=== PATIENT | male | born 1990 | race Two or more races ===

== ENCOUNTER 2019-03-06 19:17 | Emergency (ER) | payer MEDICAID, OTHER ==
[~2019-03-06] VITALS: Ht 172.7 cm; Wt 158.8 kg
[2019-03-06 19:35] VITALS: BP 150/97
--- NOTE | 2019-03-06 19:35 | NUR ---
ED Nurse Note: Patient states to day he was walking accross a playground at school and tripped over tree roots. Has pain to the right arm and to the cheek as he states he fell into a gate. He also states he has pain in the L knee
[2019-03-06] MEDS ORDERED: Tylenol #3 tab (300mg/30mg) ORAL ONE (20:00)
--- NOTE | 2019-03-06 20:12 | NUR ---
ED Nurse Note: Patient seen by xray
--- NOTE | 2019-03-06 20:57 | Emergency Room Report ---
History of Present Illness General Chief Complaint: Upper Extremity Injury Present Illness HPI 28-year-old male presents to the emergency department complaining of 7 out of 10 severity diffuse pain and tenderness to the right arm status post mechanical trip and fall while at work today. Patient reports he primarily broke his fall using his forearm. Patient reports some tenderness in the soft tissues posteriorly of the elbow but denies localized elbow bony tenderness. He reports and swelling and numbness to the dorsum of the right forearm. He denies neck or back pain. He reports hitting his face along a fence. Denies facial pain /tenderness, reports abrasion. Denies numbness tingling or loss of sensation or gross motor movements of the extremities, incontinence of bowel or bladder. Denies CP, Palpitations, LOC, AMS, dizziness, Changes in Vision, weakness or a sudden severe headache. Allergies: Coded Allergies: No Known Allergies (Unverified , 03/06/19) Patient History Past Medical History: see triage record Past Surgical History: none Pertinent Family History: none Immunizations: UTD Reviewed Nursing Documentation: PMH: Agreed; PSxH: Agreed Review of Systems All Other Systems: negative except mentioned in HPI Physical Exam Vital Signs Date Time Temp Pulse Resp B/P (MAP) Pulse Ox O2 Delivery O2 Flow Rate FiO2 03/06/19 19:34 98.6 86 18 150/97 (114) 98 Room Air Sp02 EP Interpretation: reviewed, normal General Appearance: no apparent distress, alert, GCS 15, non-toxic Head: normocephalic, atraumatic Eyes: bilateral eye normal inspection, bilateral eye PERRL ENT: hearing grossly normal, normal voice Neck: full range of motion Respiratory: chest non-tender, lungs clear, normal breath sounds, speaking full sentences Cardiovascular #1: regular rate, rhythm, normal capillary refill Musculoskeletal: back normal, gait/station normal, normal range of motion, tender - Right forearm and right wrist, mild ST swelling, no localized elbow ttp , FROM, NVI. No snuff box ttp. Neurologic: alert, oriented x3, responsive, motor strength/tone normal, sensory intact, speech normal, grossly normal Psychiatric: judgement/insight normal Skin: abrasion - the right cheek and nose, superficial not bleeding. Lymphatic: no adenopathy Medical Decision Making PA Attestation Dr. Cleary is my supervising Physician whom patient management has been discussed with. Diagnostic Impression: Primary Impression: Right wrist sprain Qualified Codes: S63.501A - Unspecified sprain of right wrist, initial encounter Additional Impressions: Contusion of soft tissue Arm pain, right ER Course 28-year-old male presents to the emergency department complaining of 7 out of 10 severity diffuse pain and tenderness to the right arm status post mechanical trip and fall while at work today. Patient reports he primarily broke his fall using his forearm. Patient reports some tenderness in the soft tissues posteriorly of the elbow but denies localized elbow bony tenderness. He reports and swelling and numbness to the dorsum of the right forearm. He denies neck or back pain. He reports hitting his face along a fence. Denies facial pain /tenderness, reports abrasion. Denies numbness tingling or loss of sensation or gross motor movements of the extremities, incontinence of bowel or bladder. Denies CP, Palpitations, LOC, AMS, dizziness, Changes in Vision, weakness or a sudden severe headache. Ddx considered but are not limited to Fracture, dislocation, contusion, Sprain/ Strain/Spasm, Head injury Vital signs: are WNL, pt. is afebrile H&PE are most consistent with musculoskeletal injury will perform imaging to r/ o fractures/dislocations. ORDERS: - X-ray Right forearm 2 views - negative for fx, Dislocation, or significant soft tissue injury, per preliminary read in ED, and signed by TINO Victor , my supervising physician has reviewed, and agrees with my interpretation. ED INTERVENTIONS: -Tylenol 3 PO -Right wrist splint applied by mechanical system technician. Pt. remains neurovascularly intact. -Right arm Sling applied by mechanical system technician. Pt. remains neurovascularly intact. -I do not identify an emergent condition at this time. With current presentation , pt. is stable for close outpatient follow up and conservative treatment. D/ w pt. to return promptly to ED with worsening or new symptoms.- Pt. verbalizes' understanding and agreement with proposed treatment plan. DISCHARGE: At this time pt. is stable for d/c to home. Will provide printed patient care instructions, and any necessary prescriptions. Care plan and follow up instructions have been discussed with the patient prior to discharge. Other X-Ray Diagnostic Results Other X-Ray Diagnostic Results : X-Ray ordered: Right Forearm # of Views/Limited Vs Complete: 2 View Indication: Pain EP Interpretation: Yes TINO Xray: Interpretation reviewed, by supervising MD, and agrees with findings. Interpretation: no dislocation, no soft tissue swelling, no fractures Impression: No acute disease Electronically Signed by: Alisa Victor PA-C Last Vital Signs Date Time Temp Pulse Resp B/P (MAP) Pulse Ox O2 Delivery O2 Flow Rate FiO2 03/06/19 19:35 98.6 18 150/97 98 Room Air 03/06/19 19:34 86 Disposition: HOME, SELF-CARE Condition: Stable Scripts Ibuprofen* (MOTRIN*) 600 Mg Tablet 600 MG ORAL THREE TIMES A DAY, #30 TAB 0 Refills Prov: Alisa Victor 03/06/19 Departure Forms: Return to Work Return to Work Date: Mar 07, 2019 Work Restrictions: No Heavy Lifting Other Restrictions: wear splint/ no use right arm. May return Sooner if Symptoms have resolved Return to Full Activity: Mar 13, 2019 Patient Instructions: Contusion, [id number], Wrist Sprain Additional Instructions: Take medications as directed. Follow up with a Primary Care Provider in 3-5 days, even if your symptoms have resolved. --Please review list of primary care clinics, if you do not already have a primary care provider Return sooner to ED if new symptoms occur, or current symptoms become worse. - Please note that this Emergency Department Report was dictated using [employer] garden technology software, occasionally this can lead to erroneous entry secondary to interpretation by the dictation equipment. Alisa Victor Mar 06, 2019 20:57
[2019-03-06] MEDS ORDERED: IBUPROFEN600 MG ORAL (20:58)
[2019-03-06 21:06] VITALS: BP 150/97
--- NOTE | 2019-03-06 21:06 | NUR ---
ER DISCHARGE NOTE: Patient is cleared to be discharged per ERMD, pt is aox4, on room air, with stable vital signs. pt was given dc and prescription instructions, pt was able to verbalize understanding, pt id band removed. pt is able to ambulate with steady gait. pt took all belongings. Patient discharged with splint insitu and sling insitu to the left arm. Splint and sling applied by EMT.
--- NOTE | 2019-03-07 11:58 | Diagnostic Imaging Report ---
Indications: Right forearm pain, status post fall Technique: Two views of the right forearm Comparison: None Findings: No acute fractures. No dislocations. No radiopaque foreign body Impression: Negative
== END 2019-03-06 21:06 | disposition home or self-care (01) ==
LOC: EMR 19:56
DX: S63.501A Unspecified sprain of right wrist, initial encounter (principal); S40.021A Contusion of right upper arm, initial encounter; W01.0XXA Fall on same level from slipping, tripping and stumbling without subsequent striking against object, initial encounter; Y92.89 Other specified places as the place of occurrence of the external cause; Y99.0 Civilian activity done for income or pay
CPT/HCPCS: 29125; 99283

== ENCOUNTER 2019-04-07 13:20 | Emergency (ER) | payer SELFPAY ==
[~2019-04-07] VITALS: Ht 175.3 cm; Wt 158.8 kg
[~2019-04-07 13:20] MED LIST: IBUPROFEN600 MG ORAL
[2019-04-07 13:31] VITALS: BP 137/83
--- NOTE | 2019-04-07 14:46 | Diagnostic Imaging Report ---
Indication: Head trauma headache Technique: Contiguous 5 mm thick transaxial imaging of the head obtained in a Siemens Sensation [address] scanner. Soft tissue and bone windows generated. Automatic Exposure Control was utilized. Total Dose length Product (DLP): 1376.[address] Dose Index Volume (CTDIvol): 62.7 mGy Comparison: 07/09/2010 Findings: The size and configuration of the cortical sulci, basal cisterns, and ventricles are within normal limits for age. There is no mass effect, midline shift, or edema identified. There is no evidence of acute hemorrhage or abnormal intra-axial or extra-axial fluid collections. The bones and soft tissues are unremarkable. Impression: No mass effect, edema or acute bleed. [facility] has communicated the preliminary results to the Emergency Department. Their findings are largely concordant with this report. The CT scanner at [facility] is accredited by the [employer] and the scans are performed using dose optimization techniques as appropriate to a performed exam including Automatic Exposure control.
--- NOTE | 2019-04-07 15:04 | Diagnostic Imaging Report ---
Indication: Right shoulder pain COMPARISON: None Findings: 3 views of the right shoulder were obtained. No acute fractures, malalignment, erosions or periostitis are identified. Soft tissues are unremarkable. Impression: Negative for acute injury
--- NOTE | 2019-04-07 15:09 | Diagnostic Imaging Report ---
Indication: Left wrist pain Findings: 3 views of the left wrist were obtained. No acute fractures, malalignment, erosions or periostitis are identified. Soft tissues are unremarkable. Impression: No acute findings.
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
[2019-04-07] MEDS ORDERED: Methocarbamol 750mg tab ORAL ONE (15:15)
[2019-04-07] MEDS ORDERED: Ketorolac 30mg Inj IM ONE (15:15)
[2019-04-07] MEDS ORDERED: IBUPROFEN800 M1 PO (15:15)
[2019-04-07] MEDS ORDERED: LIDODERM700 M1 TOPIC (15:15)
[2019-04-07] MEDS ORDERED: ROBAXIN-500MG ORAL (15:15)
[2019-04-07 15:23] VITALS: BP 135/87
== END 2019-04-07 15:23 | disposition home or self-care (01) ==
LOC: EMR 13:43
DX: S00.93XA Contusion of unspecified part of head, initial encounter (principal); S60.212A Contusion of left wrist, initial encounter; S40.011A Contusion of right shoulder, initial encounter; M54.2 Cervicalgia; V49.9XXA Car occupant (driver) (passenger) injured in unspecified traffic accident, initial encounter; Y92.9 Unspecified place or not applicable
CPT/HCPCS: 70450; 73030; 73110; 96372; 99284; J1885

== ENCOUNTER 2020-04-07 09:08 | Inpatient (IN) | payer SELFPAY ==
[~2020-04-07] VITALS: Ht 172.7 cm; Wt 169.6 kg
--- NOTE | 2020-04-07 07:20 | NUR ---
NURSE NOTES: Report received from Rere THOMAS. Patient alert oriented x4. Non rebreather mask on at 10 LPM. Call light in reach. Bed at lowest position locked with side rails up.
[~2020-04-07 09:08] MED LIST changes: +IBUPROFEN800 M1 PO; +LIDODERM700 M1 TOPIC; +ROBAXIN-500MG ORAL
[2020-04-07 09:15] VITALS: BP 144/91
[2020-04-07] MEDS ORDERED: dexAMETHasone 10mg/ml Inj IV ONE (09:15)
[2020-04-07] MEDS ORDERED: cefTRIAXone 2 GM in NS 110 ML IV ONE (09:15)
--- NOTE | 2020-04-07 09:17 | NUR ---
ED Nurse Note: Pt came by isabel JEAN BAPTISTE 26, Pt had labored breathing with a mask on. Pt placed in bed NRB re-applied SPO2 at 95% with NRB. Pt co of pain Addendum: 04/07/20 at 0920 by TDANCEY while breathing, diarrhea and reported positive COVID test 2 weeks ago from a test done with the [facility].
[2020-04-07 09:28] LABS: HEMATOCRIT 38.7 % (42.0-52.0); HEMOGLOBIN 13.8 G/DL (14.2-18.0); MEAN CORPUSCULAR VOLUME 85 FL (80-99); PLATELET COUNT 283 K/UL (150-450); RED BLOOD COUNT 4.53 M/UL (4.70-6.10); RED CELL DISTRIBUTION WIDTH 12.5 % (11.6-14.8); WHITE BLOOD COUNT 11.3 K/UL (4.8-10.8)
[2020-04-07 09:38] LABS: INR 1.2 (0.9-1.1)
[2020-04-07 09:52] LABS: ALBUMIN 2.5 G/DL (3.4-5.0); ALBUMIN/GLOBULIN RATIO 0.6 (1.0-2.7); BILIRUBIN,TOTAL 1.6 MG/DL (0.2-1.0); CALCIUM 7.3 MG/DL (8.5-10.1); CKMB 17.3 NG/ML (0.0-3.6); CREATININE 1.4 MG/DL (0.55-1.30)
--- NOTE | 2020-04-07 09:59 | NUR ---
ED Nurse Note: xray completed.
[2020-04-07 10:01] LABS: POTASSIUM 2.3 MMOL/L (3.5-5.1)
[2020-04-07 10:02] LABS: BILIRUBIN,DIRECT 0.8 MG/DL (0.0-0.3)
[2020-04-07] MEDS ORDERED: Azithromycin 250mg tab ORAL ONE (10:45)
[2020-04-07 11:00] LABS: APPEARANCE,URINE CLEAR; BILIRUBIN, URINE NEGATIVE (NEGATIVE); GLUCOSE, URINE (UA) NEGATIVE (NEGATIVE); KETONES,URINE 1+ (NEGATIVE); LEUKOCYTE ESTERASE ,URINE NEGATIVE (NEGATIVE); NITRITE,URINE NEGATIVE (NEGATIVE); PH,URINE 6.5 (4.5-8.0); PROTEIN,URINE 3+ (NEGATIVE); UROBILINOGEN,URINE NORMAL MG/DL (0.0-1.0)
--- NOTE | 2020-04-07 11:06 | Emergency Room Report ---
History of Present Illness General Chief Complaint: Dyspnea/Respdistress Source: Patient (Alberta Garner Amol) Present Illness HPI 29-year-old male with history of Covid presents with hypoxia by ambulance. Mother is sick at home with Covid. Patient endorses shortness of breath, dry cough, myalgias and fatigue x 1 week. He was tested at [facility] and confirmed to be COVID positive as well. He denies BEASLEY, neck pain, rash, photophobia, CP, back pain, melena, hematochezia, hematuria, focal weakness. The patient's symptoms were gradual onset, severity was moderate, duration since 7 days. Quality: short of breath Past medical history: Denies Past surgical history: Denies Smoking: Denies Alcohol use: Denies Drug use: ++marijuana Review of systems: CONST: ++ fevers ++ chills, No night sweats PULMONARY: ++ cough, ++ shortness of breath CARDIAC: No chest pain, No palpitations GI: No vomiting, ++ diarrhea , No melena_or_BRBPR : No dysuria, No hematuria, No discharge NEURO: No new_focal_weakness_or_numbness, No confusion, No vision changes 14 point Review of Systems is otherwise negative except per HPI Physical Exam: GENERAL: Awake_alert_ nontoxic, no acute distress Spo2 84% on RA -abnormal . Obese EYES: Extraocular muscles are intact. Conjunctivae clear. Lids without swelling ENT: External nose and ear normal_in_appearance. Oropharynx clear. Head_atraumatic, Moist_oral_mucosa NECK: No JVD. No meningismus. No thyromegaly. Supple. Trachea midline RESP: Normal respiratory effort. Symmetric rise. No stridor. Tonja r_to_auscultation_No_rales_No_wheezes CARDIAC: Labored respiratory effort. Tachypnic. Clipped speech. and regular rhytm. No_significant pedal edema. ABDOMEN: Soft. Nondistended. Nontender_No_rebound_or_guarding. MSK: Normal muscle tone, without rigidity. Extremities without asymmetric deformity or swelling. SKIN: Warm and dry. No visible cyanosis or pallor NEUROLOGIC: Alert, oriented x3. Motor_and_sensation_grossly_intact. No truncal ataxia. Gait_normal Psych: Normal mood and affect, normal judgment and insight - COORDINATION OF CARE Case was discussed with: Patient , Patient's Physician Any labs and imaging that were ordered were interpreted as part of the medical decision making: Medical Decision Making/Plan: DDx: includes COVID-19 / coronavirus infection, URI, bronchitis, viral syndrome, postnasal drip, versus less likely pneumonia, among others. Patient with COVID pneumonia presents with hypoxia and respiratory distress. Patient was placed on NRB face mask at 10L with correction of hypoxia. CXR is consistent with multifocal pneumonia consistent with COVID. Labs show AZUCENA, dehydration, and critical hypokalemia/magnesemia. EKG is non ischemic. He received Rocephin, azithro, decadron per hospital policy. Electrolytes were repleted. Pt was offered NS 30 CC/kg bolus hydration but declined 2/2 COVID status. He will received gentle IVF I spoke with Dr. Shipley, and reviewed the patients presentation, workup, results, and treatment. They will admit the patient for further care and evaluation, and assume care of the patient at this time. (Alberta Garner D.O.) Allergies: Coded Allergies: No Known Allergies (Unverified , 03/06/19) COVID-19 Screening Contact w/high risk pt: Yes Experienced COVID-19 symptoms?: Yes COVID-19 Testing performed RIVET SPINNER: Yes COVID-19 Screening: Positive COVID-19 COVID-19 Testing Source: nasal (Alberta Garner D.O.) Nursing Documentation-[facility] Past Medical History: No Stated History (Alberta Garner D.O.) Physical Exam Vital Signs Date Time Temp Pulse Resp B/P (MAP) Pulse Ox O2 Delivery O2 Flow Rate FiO2 04/07/20 09:13 98.2 115 22 144/91 (108) 84 Room Air 04/07/20 09:15 10.0 Sp02 EP Interpretation: reviewed, abnormal (Alberta Garner D.O.) Procedures Critical Care Time Critical Care Time Critical Care Statement Organ systems at risk include: cardiac / circulatory/PULM Critical care performed for 45 minutes. Time is exclusive of separately billable procedures. Time includes: direct patient care, continuous monitoring and multiple patient reassessment, coordination of patient care, review of patient's medical records, medical consultation, family consultation regarding treatment decisions and documentation of patient care. (Alberta Garner D.O.) Medical Decision Making Diagnostic Impression: Primary Impression: COVID-19 Additional Impressions: Hypoxemic respiratory failure, chronic AZUCENA (acute kidney injury) Dehydration Obesity Hypokalemia Diarrhea ER Course Notified by radiologist that patient has subcutaneous air in the neck. Contacting Dr. Shipley. (Geronimo Marin MD) EKG Diagnostic Results Troponin ordered: Yes When was troponin ordered?: Apr 07, 2020 Rate: normal ASA given to the pt in ED: No - NO ACS PA Scribe Text 12-lead EKG (interpreted by me) Time: 924 Indication: Rhythm analysis Tracing visualized and Interpreted by me. Rhythm: Echocardiogram Rate: 108 bpm QTc: 493 Morphology: No_significant_ST_elevations_or_depressions, No STEMI Impression: Sinus tachycardia. Normal axis. Normal intervals. (Alberta Garner D.O.) Chest X-Ray Diagnostic Results Chest X-Ray Diagnostic Results : PA Scribe Text Chest X-Ray: Views: 1 view(s) Indication: SOB Findings: DIFFUSE INFILTRATE, NO PTX Impression: COVID 19 The X-ray(s) were independently viewed and interpreted contemporaneously Electronically signed by Alberta alejandro DO (Alberta Garner D.O.) Reevaluation Time: 13:00 Last Vital Signs Date Time Temp Pulse Resp B/P (MAP) Pulse Ox O2 Delivery O2 Flow Rate FiO2 04/07/20 09:15 99.2 25 144/91 97 Non-Rebreather 10.0 04/07/20 09:15 115 Status: improved (Alberta Garner D.O.) Disposition: ADMITTED INPATIENT Admit Decision Time: 11:00 (Alberta Garner D.O.) Condition: Stable Scripts No Active Prescriptions or Reported Meds Referrals: NOT CHOSEN IPA/,REFERRING (PCP) Alberta Garner D.O. Apr 07, 2020 11:06 Geronimo Marin MD Apr 07, 2020 14:34
[2020-04-07 11:09] LABS: COLOR,URINE YELLOW
--- NOTE | 2020-04-07 11:12 | NUR ---
RADIOLOGY DEPT., CHEST X-RAY DONE.-P.DYE
--- NOTE | 2020-04-07 11:23 | NUR ---
ED Nurse Note: Report given to Rere Farrell RN of telemetry unit.
--- NOTE | 2020-04-07 11:45 | NUR ---
TRANSFER TO FLOOR: Patient transferred to Tele as ordered, per ER MD. Report given to Ellyn Jernigan. Belongings given to pt.
[2020-04-07] MEDS ORDERED: Albuterol 90mcg Inhaler 8gm INH PRN (12:00)
--- NOTE | 2020-04-07 12:00 | NUR ---
NURSE NOTES: Recieved Pt report from WILLIAM Sahu from ER. Pt brought up via gurney and ambulated to bathroom then back to bed. Pt on 4 LPM NRB saturating 97%. Pt belongings remain with Pt. Pt IV on RFA running magnesium, asymptomatic and intact. Dressing reinforced at this time. pt has no s/s or complaints of distress at this time. pt bed low and locked, call liht in reach and bed alarm on. pt verbalized undertstanding to call for help. Vitals WNL
--- NOTE | 2020-04-07 12:06 | History and Physical ---
History of Present Illness General Date patient seen: Apr 07, 2020 Time patient seen: 11:00 Reason for Hospitalization: Dyspnea/Respdistress Present Illness HPI 29 years old male with no significant past medical history presented to emergency department by paramedics due to respiratory distress. According to patient, his mother got diagnosed with COVID 19 first and currently hospitalized in [facility]. Patient started to have symptoms 2 days ago , which were getting progressively worse. He was tested positive outside of the hospital. Patient had difficulty breathing and called paramedics. Upon evaluation patient was tachycardic with heart rate 115, no fevers, blood pressure 144/91. Patient was hypoxic and required nonrebreather mask. Laboratory work-up revealed mild leukocytosis WBC 11.3 , hemoglobin 13.8 , hematocrit 30.7 , neutrophils 84 . ABG on 100% nonrebreather mask stable. Sodium 121, potassium 2.3. BUN 15, creatinine 1.4. Glucose 111. Lactic acid 2.2. Calcium 7.3 , phosphorus 2.0 , magnesium 1.3 . Total bili 1.6 , direct bilirubin 0.8 . AST 172, ALT 70. Total CK 9910 , CK-MB 17.3, troponin negative, proBNP 22. Albumin 2.5 Urinalysis revealed +2 protein ,+1 ketones ,no evidence of UTI. Influenza screen test was negative. Chest x-ray results pending Rapid COVID-19 was positive In emergency department patient received empiric antibiotic , steroids and admitted to telemetry floor for further management . Patient started on K and Mg replacement . PMH: denies Past surgery: denies Social history: + smoking marijuana, ETOH socially, otherwise no illciiti drug use, no ETOH abuse. 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 Family history: Mother + with COVID, currently hospitalized Allergy: NKDA Medications: none Allergies: Coded Allergies: No Known Allergies (Unverified , 03/06/19) COVID-19 Screening Contact w/high risk pt: Yes Experienced COVID-19 symptoms?: Yes Coronavirus symptoms experienc: Shortness of Breath Medication History No Active Prescriptions or Reported Meds Patient History Healthcare decision maker Resuscitation status Full code Advanced Directive on File Review of Systems Constitutional: Reports: weakness Eye: Reports: no symptoms ENT: Reports: no symptoms Respiratory: Reports: see HPI Cardiovascular: Reports: no symptoms Gastrointestinal: Reports: no symptoms Genitourinary: Reports: no symptoms Musculoskeletal: Reports: no symptoms Skin: Reports: no symptoms Psychiatric: Reports: no symptoms Neurological: Reports: no symptoms Endocrine: Reports: no symptoms Hematologic/Lymphatic: Reports: no symptoms Physical Exam General Appearance: other - young obese male in mild resp distress on 100% NRM Lines, tubes and drains: peripheral HEENT: normocephalic, atraumatic, anicteric, PERRL Neck: non-tender, supple Respiratory/Chest: respiratory distress - mild , accessory muscle use, other - decreased BS bilaterally Cardiovascular/Chest: normal rate, regular rhythm Abdomen: normal bowel sounds, non tender, soft Extremities: normal range of motion, non-tender, no calf tenderness, normal capillary refill Skin Exam: warm/dry Neurologic: 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 normal, no motor/sensory deficits, alert, oriented x 3, responsive Musculoskeletal: normal muscle bulk Last 24 Hour Vital Signs Date Time Temp Pulse Resp B/P (MAP) Pulse Ox O2 Delivery O2 Flow Rate FiO2 04/07/20 09:15 99.2 25 144/91 97 Non-Rebreather 10.0 04/07/20 09:15 115 25 Room Air 04/07/20 09:13 98.2 115 22 144/91 (108) 84 Room Air Laboratory Tests Test 04/07/20 09:05 04/07/20 09:33 04/07/20 10:30 White Blood Count 11.3 K/UL (4.8-10.8) H Red Blood Count 4.53 M/UL (4.70-6.10) L Hemoglobin 13.8 G/DL (14.2-18.0) L Hematocrit 38.7 % (42.0-52.0) L Mean Corpuscular Volume 85 FL (80-99) Mean Corpuscular Hemoglobin 30.5 PG (27.0-31.0) Mean Corpuscular Hemoglobin Concent 35.7 G/DL (32.0-36.0) Red Cell Distribution Width 12.5 % (11.6-14.8) Platelet Count 283 K/UL (150-450) Mean Platelet Volume 8.4 FL (6.5-10.1) Neutrophils (%) (Auto) % (45.0-75.0) Lymphocytes (%) (Auto) % (20.0-45.0) Monocytes (%) (Auto) % (1.0-10.0) Eosinophils (%) (Auto) % (0.0-3.0) Basophils (%) (Auto) % (0.0-2.0) Differential Total Cells Counted 100 Neutrophils % (Manual) 84 % (45-75) H Lymphocytes % (Manual) 9 % (20-45) L Monocytes % (Manual) 4 % (1-10) Eosinophils % (Manual) 0 % (0-3) Basophils % (Manual) 0 % (0-2) Band Neutrophils 3 % (0-8) Platelet Estimate Adequate Platelet Morphology Normal Red Blood Cell Morphology Normal Prothrombin Time 12.7 SEC (9.30-11.50) H Prothromb Time International Ratio 1.2 (0.9-1.1) H Activated Partial Thromboplast Time 34 SEC (23-33) H Sodium Level 121 MMOL/L (136-145) L Potassium Level 2.3 MMOL/L (3.5-5.1) *L Chloride Level 87 MMOL/L (98-107) L Carbon Dioxide Level 22 MMOL/L (21-32) Anion Gap 12 mmol/L (5-15) Blood Urea Nitrogen 15 mg/dL (7-18) Creatinine 1.4 MG/DL (0.55-1.30) H Estimat Glomerular Filtration Rate 59.9 mL/min (>60) Glucose Level 111 MG/DL (74-106) H Lactic Acid Level 2.20 mmol/L (0.4-2.0) H Calcium Level 7.3 MG/DL (8.5-10.1) L Phosphorus Level 2.0 MG/DL (2.5-4.9) L Magnesium Level 1.3 MG/DL (1.8-2.4) L Total Bilirubin 1.6 MG/DL (0.2-1.0) H Direct Bilirubin 0.8 MG/DL (0.0-0.3) H Aspartate Amino Transf (AST/SGOT) 172 U/L (15-37) H Alanine Aminotransferase (ALT/SGPT) 70 U/L (12-78) Alkaline Phosphatase 54 U/L (46-116) Total Creatine Kinase 9910 U/L (26-308) H Creatine Kinase MB 17.3 NG/ML (0.0-3.6) H Creatine Kinase MB Relative Index 0.1 Troponin I 0.002 ng/mL (0.000-0.056) Pro-B-Type Natriuretic Peptide 22 pg/mL (0-125) Total Protein 6.8 G/DL (6.4-8.2) Albumin 2.5 G/DL (3.4-5.0) L Globulin 4.3 g/dL Albumin/Globulin Ratio 0.6 (1.0-2.7) L Lipase 82 U/L (73-393) Arterial Blood pH 7.535 (7.350-7.450) Arterial Blood Partial Pressure CO2 20.2 mmHg (35.0-45.0) *L Arterial Blood Partial Pressure O2 101.6 mmHg (75.0-100.0) H Arterial Blood HCO3 16.7 mmol/L (22.0-26.0) *L Arterial Blood Oxygen Saturation 97.4 % (95-100) Arterial Blood Base Excess -3.7 (-2-2) L Jonny Test Positive Urine Color Yellow Urine Appearance Clear Urine pH 6.5 (4.5-8.0) Urine Specific [address] 1.005 (1.005-1.035) Urine Protein 3+ (NEGATIVE) H Urine Glucose (UA) Negative (NEGATIVE) Urine Ketones 1+ (NEGATIVE) H Urine Blood 5+ (NEGATIVE) H Urine Nitrite Negative (NEGATIVE) Urine Bilirubin Negative (NEGATIVE) Urine Urobilinogen Normal MG/DL (0.0-1.0) Urine Leukocyte Esterase Negative (NEGATIVE) Urine RBC 0-2 /HPF (0 - 0) H Urine WBC 0-2 /HPF (0 - 0) Urine Squamous Epithelial Cells Occasional /LPF Urine Bacteria Few /HPF (NONE) Microbiology Date/Time Source Procedure Growth Status 04/07/20 09:46 Nasal Nares Right - Final Complete 04/07/20 09:46 Nasal Nares Right - Final Complete Height (Feet): 5 Height (Inches): 9.00 Weight (Pounds): 300 Medications Current Medications Medications (Trade) Dose Ordered Sig/Bernard Route PRN Reason Start Time Stop Time Status Last Admin Dose Admin Magnesium Sulfate 100 ml @ 100 mls/hr Q1H IVPB 04/07/20 10:15 04/07/20 12:14 04/07/20 10:28 Assessment/Plan Assessment/Plan: ASSESSMENT Acute hypoxemic respiratory failure requiring cardioversion nonrebreather mask COVID pneumonia Morbid obesity Electrolyte imbalance: hypo Na, hypo K, hypo Mg Elevated LFT Elevated CK, possible rhabdo AZUCENA PLAN OF CARE tele O2 titrate to keep sat above 92% MDI Albuterol prn closely monitor oxygenation, low threshold for intubation ABG in am steroids, remdesivvir abx as per ID recs fup inflammatory markers a/c with Lovenox vit C and zinc IVF nephro evla monitor renal parameters, LFT, CK supportive care replace lytes case discussed and evaluated by supervising physician Mariela Dover NP Apr 07, 2020 12:06
[2020-04-07 12:34] LABS: FERRITIN > 2000 NG/ML (8-388); LACTATE DEHYDROGENASE 1495 U/L (81-234)
--- NOTE | 2020-04-07 12:45 | Consultation ---
Consult Note Consult Note I am asked to evaluate the patient for abnormal electrolyte and fluid management Full note to follow 29-year-old male with history of Covid presents with hypoxia by ambulance. Mother is sick at home with Covid. Patient endorses shortness of breath, dry cough, myalgias and fatigue x 1 week. He was tested at [facility] and confirmed to be COVID positive as well. He denies BEASLEY, neck pain, rash, photophobia, CP, back pain, melena, hematochezia, hematuria, focal weakness. The patient's symptoms were gradual onset, severity was moderate, duration since 7 days. Quality: short of breath Past medical history: Denies Past surgical history: Denies Smoking: Denies Alcohol use: Denies Drug use: ++marijuana Review of systems: CONST: ++ fevers ++ chills, No night sweats PULMONARY: ++ cough, ++ shortness of breath CARDIAC: No chest pain, No palpitations GI: No vomiting, ++ diarrhea , No melena_or_BRBPR : No dysuria, No hematuria, No discharge NEURO: No new_focal_weakness_or_numbness, No confusion, No vision changes 14 point Review of Systems is otherwise negative except per HPI Physical Exam: GENERAL: Awake_alert_ nontoxic, no acute distress Spo2 84% on RA -abnormal . Obese EYES: Extraocular muscles are intact. Conjunctivae clear. Lids without swelling ENT: External nose and ear normal_in_appearance. Oropharynx clear. Head_atraumatic, Moist_oral_mucosa NECK: No JVD. No meningismus. No thyromegaly. Supple. Trachea midline RESP: Normal respiratory effort. Symmetric rise. No stridor. Clear_to_auscultation_No_rales_No_wheezes CARDIAC: Labored respiratory effort. Tachypnic. Clipped speech. and regular rhytm. No_significant pedal edema. ABDOMEN: Soft. Nondistended. Nontender_No_rebound_or_guarding. MSK: Normal muscle tone, without rigidity. Extremities without asymmetric deformity or swelling. SKIN: Warm and dry. No visible cyanosis or pallor NEUROLOGIC: Alert, oriented x3. Motor_and_sensation_grossly_intact. No truncal ataxia. Gait_normal Psych: Normal mood and affect, normal judgment and insight . Assessment/Plan Acute hypoxemic respiratory failure requiring cardioversion nonrebreather mask COVID pneumonia Morbid obesity Electrolyte imbalance: hypo Na, hypo K, hypo Mg Elevated LFT Elevated CK, possible rhabdo AZUCENA PLAN OF CARE tele O2 titrate to keep sat above 92% MDI Albuterol prn closely monitor oxygenation, low threshold for intubation ABG in am steroids, remdesivvir abx as per ID recs fup inflammatory markers a/c with Lovenox vit C and zinc IVF nephro evla monitor renal parameters, LFT, CK supportive care replace Jamey Sahu MD Apr 07, 2020 12:45
[2020-04-07] MEDS ORDERED: Potassium Phosphate 15mm/250ml 250 ML IVPB ONE (13:30)
[2020-04-07] MEDS: Zinc Sulfate 220mg ORAL SCH (13:49)
[2020-04-07] MEDS: NS w/KCl 20mEq 1000ml 1,000 ML IV SCH ×3 (13:50→23:00)
--- NOTE | 2020-04-07 14:36 | Diagnostic Imaging Report ---
Indication: Cough Technique: One view of the chest Comparison: 07/09/2010 Findings: Extensive bilateral interstitial and airspace infiltrates, diffuse with a peripheral predominance and a peribronchovascular distribution, are noted, new since the prior study. There is gas within the soft tissue planes of the neck, as well as gas within the left supraclavicular fossa soft tissues. There is probably some pneumomediastinum as well. No definite pneumothorax, however. The heart size is normal. The pleural spaces are clear. Impression: Bilateral infiltrates, suspicious for bilateral pneumonia, quite possibly viral Evidence of soft tissue gas within the fascial planes of the neck as well as soft tissue gas within the left supraclavicular fossa. Of pneumothorax. Probably secondary to barotrauma; much less likely due to infection with gas-forming organism. Dr. Marin was notified at the time of interpretation
[2020-04-07] MEDS ORDERED: Omnipaque-300 100ml vial INJ PRN ×2 (14:49)
--- NOTE | 2020-04-07 15:01 | NUR ---
NURSE NOTES: Potassium phosphate and Potassium chloride were not compatible per Per pharmacy and clinical pharmacology so I administered potassium phosphate first and will run potassium chloride at a later time after remdesivir is done running. Marked "undo" on emar.
[2020-04-07 16:00] VITALS: BP 127/80
--- NOTE | 2020-04-07 16:59 | Diagnostic Imaging Report ---
ndication: Shortness of breath, labored breathing Technique: IV administration nonionic contrast. Spiral acquisitions obtained from the lung bases to the lung apices. Multiplanar and 3-D reconstructions were generated. Total dose length product 1473 mGycm. CTDIvol(s) 8, 147, 27 mGy. Dose reduction achieved using automated exposure control Comparison: none Findings: Exam is limited. Patient was scanned with his arms by his side due to inability to cooperate optimally. This results in extensive streak and beam hardening artifact throughout the chest. There is extensive dense consolidation bilaterally. This involves essentially the entire posterior lower lobes bilaterally, and is seen centrally and peripherally in the upper lobes. No pleural effusions are evident. There is pneumomediastinum. Gas is seen surrounding the thyroid, the great vessel origins, alongside the inferior vena cava, along the posterior mediastinum and extending alongside the esophagus to the level of the gastroesophageal junction. Gas also extends cephalad into the neck beyond the imaging volume. No definite tracheal or esophageal defect is demonstrated. There is no pneumothorax. The heart size is normal. No pericardial effusion. No mediastinal or hilar mass or adenopathy. Unremarkable thyroid. The included upper abdominal anatomy is not well demonstrated but appears grossly unremarkable. Impression: Limited exam, as described Bilateral diffuse and extensive infiltrates, as described. Most likely due to pneumonia, appearance nonspecific as regards etiology. Pneumomediastinum. Etiology of this is not demonstrated. No evidence of pneumothorax The CT scanner at [facility] is accredited by the [employer] and the scans are performed using protocols designed to limit radiation exposure to as low as reasonably achievable to attain images of sufficient resolution adequate for diagnostic evaluation.
[2020-04-07] MEDS ORDERED: Loading Dose:Remdesivir 200mg/NS 210ml IV SCH ×2 (17:00)
--- NOTE | 2020-04-07 17:06 | Diagnostic Imaging Report ---
Indication: Shortness of breath, evidence of soft tissue gas on recent plain radiograph Technique: IV administration nonionic contrast. Spiral acquisitions obtained through the neck. Multiplanar reconstructions were generated. Total dose length product 1473 mGycm. CTDIvol(s) 8, 147, 27 mGy. Dose reduction achieved using automated exposure control Comparison: none Findings: Gas is seen within the deep fascial planes of the neck as well as superficially. Gas is seen in the retropharyngeal space extending from the level of the adenoids into the upper mediastinum, within the vascular space surrounding the carotid sheaths, within the right parapharyngeal space, surrounding the thyroid, in the lower neck anterior to the strap muscles and also adjacent and superficial to the left sternocleidomastoid. Some gas is also seen anterior to the upper medial pectoralis major muscle on the left and in the bilateral supraclavicular fossae. No focal fluid collection to suggest abscess demonstrated. No definite tracheal or esophageal wall defect is demonstrated. Gas also extends into the mediastinum and is described in more detail on separate chest CT report There are bilateral maxillary sinus polyps versus mucous retention cysts. There is evidence of dental disease with severe caries and periodontal changes involving the left second maxillary molar. No cervical mass or adenopathy demonstrated. The salivary glands are unremarkable. The visualized lungs demonstrate extensive pulmonary parenchymal disease. This is described on separate chest CT report. Impression: Extensive gas within the fascial planes of the neck, as described. Etiology not demonstrated. No evidence of fluid collection to suggest abscess Other findings as noted, including dental disease, bilateral maxillary sinus polyps versus mucous retention cysts The CT scanner at [facility] is accredited by the [employer] and the scans are performed using protocols designed to limit radiation exposure to as low as reasonably achievable to attain images of sufficient resolution adequate for diagnostic evaluation.
[2020-04-07] MEDS: Docusate 100mg cap ORAL SCH (17:14)
[2020-04-07] MEDS: Enoxaparin 120 mg inj SUBQ SCH (17:16)
[2020-04-07] MEDS: Ascorbic Acid 500mg tab ORAL SCH (17:16)
--- NOTE | 2020-04-07 17:21 | Infectious Diseases Prog Note ---
Assessment/Plan Assessment/Plan Full consult dictated: A) 1) covid-19 infection with pna, ? cap 2) pneumomediastinum on chest CT 3) neck with gas on CT P) 1) zosyn, azithromycin 2) remdesivir and dexamethasone 3) will f/u 4) thank you Subjective Allergies: Coded Allergies: No Known Allergies (Unverified , 03/06/19) Objective Last 24 Hour Vital Signs Date Time Temp Pulse Resp B/P (MAP) Pulse Ox O2 Delivery O2 Flow Rate FiO2 04/07/20 12:21 Non-Rebreather 4.0 04/07/20 12:02 100.1 104 22 121/60 97 Non-Rebreather 15.0 04/07/20 12:00 103 04/07/20 09:15 99.2 25 144/91 97 Non-Rebreather 10.0 04/07/20 09:15 115 25 Room Air 04/07/20 09:13 98.2 115 22 144/91 (108) 84 Room Air Height (Feet): 5 Height (Inches): 8.00 Weight (Pounds): 374 Microbiology Date/Time Source Procedure Growth Status 04/07/20 09:46 Nasal Nares Right - Final Complete 04/07/20 09:46 Nasal Nares Right - Final Complete Laboratory Tests Test 04/07/20 09:00 04/07/20 09:05 04/07/20 09:33 04/07/20 10:30 D-Dimer 2.01 mg/L FEU (0.00-0.49) H Ferritin > 2000 NG/ML (8-388) H Lactate Dehydrogenase 1495 U/L (81-234) H C-Reactive Protein, Quantitative 39.9 mg/dL (0.00-0.90) H White Blood Count 11.3 K/UL (4.8-10.8) H Red Blood Count 4.53 M/UL (4.70-6.10) L Hemoglobin 13.8 G/DL (14.2-18.0) L Hematocrit 38.7 % (42.0-52.0) L Mean Corpuscular Volume 85 FL (80-99) Mean Corpuscular Hemoglobin 30.5 PG (27.0-31.0) Mean Corpuscular Hemoglobin Concent 35.7 G/DL (32.0-36.0) Red Cell Distribution Width 12.5 % (11.6-14.8) Platelet Count 283 K/UL (150-450) Mean Platelet Volume 8.4 FL (6.5-10.1) Neutrophils (%) (Auto) % (45.0-75.0) Lymphocytes (%) (Auto) % (20.0-45.0) Monocytes (%) (Auto) % (1.0-10.0) Eosinophils (%) (Auto) % (0.0-3.0) Basophils (%) (Auto) % (0.0-2.0) Differential Total Cells Counted 100 Neutrophils % (Manual) 84 % (45-75) H Lymphocytes % (Manual) 9 % (20-45) L Monocytes % (Manual) 4 % (1-10) Eosinophils % (Manual) 0 % (0-3) Basophils % (Manual) 0 % (0-2) Band Neutrophils 3 % (0-8) Platelet Estimate Adequate Platelet Morphology Normal Red Blood Cell Morphology Normal Prothrombin Time 12.7 SEC (9.30-11.50) H Prothromb Time International Ratio 1.2 (0.9-1.1) H Activated Partial Thromboplast Time 34 SEC (23-33) H Sodium Level 121 MMOL/L (136-145) L Potassium Level 2.3 MMOL/L (3.5-5.1) *L Chloride Level 87 MMOL/L (98-107) L Carbon Dioxide Level 22 MMOL/L (21-32) Anion Gap 12 mmol/L (5-15) Blood Urea Nitrogen 15 mg/dL (7-18) Creatinine 1.4 MG/DL (0.55-1.30) H Estimat Glomerular Filtration Rate 59.9 mL/min (>60) Glucose Level 111 MG/DL (74-106) H Lactic Acid Level 2.20 mmol/L (0.4-2.0) H Calcium Level 7.3 MG/DL (8.5-10.1) L Phosphorus Level 2.0 MG/DL (2.5-4.9) L Magnesium Level 1.3 MG/DL (1.8-2.4) L Total Bilirubin 1.6 MG/DL (0.2-1.0) H Direct Bilirubin 0.8 MG/DL (0.0-0.3) H Aspartate Amino Transf (AST/SGOT) 172 U/L (15-37) H Alanine Aminotransferase (ALT/SGPT) 70 U/L (12-78) Alkaline Phosphatase 54 U/L (46-116) Total Creatine Kinase 9910 U/L (26-308) H Creatine Kinase MB 17.3 NG/ML (0.0-3.6) H Creatine Kinase MB Relative Index 0.1 Troponin I 0.002 ng/mL (0.000-0.056) Pro-B-Type Natriuretic Peptide 22 pg/mL (0-125) Total Protein 6.8 G/DL (6.4-8.2) Albumin 2.5 G/DL (3.4-5.0) L Globulin 4.3 g/dL Albumin/Globulin Ratio 0.6 (1.0-2.7) L Lipase 82 U/L (73-393) Interleukin 6 (IL-6) Pending Arterial Blood pH 7.535 (7.350-7.450) Arterial Blood Partial Pressure CO2 20.2 mmHg (35.0-45.0) *L Arterial Blood Partial Pressure O2 101.6 mmHg (75.0-100.0) H Arterial Blood HCO3 16.7 mmol/L (22.0-26.0) *L Arterial Blood Oxygen Saturation 97.4 % (95-100) Arterial Blood Base Excess -3.7 (-2-2) L Jonny Test Positive Urine Color Yellow Urine Appearance Clear Urine pH 6.5 (4.5-8.0) Urine Specific [place] 1.005 (1.005-1.035) Urine Protein 3+ (NEGATIVE) H Urine Glucose (UA) Negative (NEGATIVE) Urine Ketones 1+ (NEGATIVE) H Urine Blood 5+ (NEGATIVE) H Urine Nitrite Negative (NEGATIVE) Urine Bilirubin Negative (NEGATIVE) Urine Urobilinogen Normal MG/DL (0.0-1.0) Urine Leukocyte Esterase Negative (NEGATIVE) Urine RBC 0-2 /HPF (0 - 0) H Urine WBC 0-2 /HPF (0 - 0) Urine Squamous Epithelial Cells Occasional /LPF Urine Bacteria Few /HPF (NONE) Current Medications Medications (Trade) Dose Ordered Sig/Bernard Route PRN Reason Start Time Stop Time Status Last Admin Dose Admin Albuterol Sulfate (Proventil MDI) 2 puff Q4H PRN INH Shortness of Breath 04/07/20 12:00 07/06/20 11:59 Ascorbic Acid (Vitamin C) 500 mg TWICE A DAY ORAL 04/07/20 18:00 05/07/20 17:59 Dexamethasone Sodium Phosphate (Decadron 10mg/ ml Inj) 6 mg DAILY IV 04/08/20 09:00 04/17/20 09:01 Docusate Sodium (Colace) 100 mg TWICE A DAY ORAL 04/07/20 18:00 05/07/20 17:59 Enoxaparin Sodium (Lovenox) 120 mg Q24H SUBQ 04/07/20 17:00 07/06/20 16:59 Iohexol (OMNIPAQUE-300 100ml) 100 ml ONCE PRN INJ RADIOLOGY 04/07/20 14:49 04/08/20 23:59 Iohexol (OMNIPAQUE-300 100ml) 100 ml ONCE PRN INJ RADIOLOGY 04/07/20 14:49 04/08/20 23:59 Pantoprazole (Protonix) 40 mg DAILY ORAL 04/08/20 09:00 05/08/20 08:59 Potassium Chloride/Sodium Chloride 1,000 ml @ 100 mls/hr Q10H IV 04/07/20 13:00 05/07/20 12:59 Potassium Phosphate 250 ml @ 41.671 mls/ hr ONCE ONCE IVPB 04/07/20 13:30 04/07/20 19:29 04/07/20 13:49 Remdesivir 100 mg/ Sodium Chloride 250 ml @ 250 mls/hr Q24H IV 04/08/20 17:00 04/11/20 17:59 Remdesivir 200 mg/ Sodium Chloride 250 ml @ 125 mls/hr ONCE IV 04/07/20 17:00 04/07/20 18:59 Zinc Sulfate (Zinc Sulfate) 220 mg DAILY ORAL 04/07/20 12:15 07/06/20 12:14 04/07/20 13:49 Dennis Foy MD Apr 07, 2020 17:21
[2020-04-07 20:00] VITALS: BP 130/80
--- NOTE | 2020-04-07 20:04 | NUR ---
NURSE HAND-OFF REPORT: Important Events on Shift: ADMISSION FROM ER, CXR SHOWED AIRPACE IN NECK, CT W/ W/O CONTRAST DONE Patient Status: FC, STABLE Diet: CARDIAC DIET Pending Orders: Pending Results/Labs: Pending MD notification: Latest Vital Signs: Temperature 97.9 , Pulse 98 , B/P 127 /80 , Respiratory Rate 22 , O2 SAT 97 , Non-Rebreather, O2 Flow Rate 4.0 . Vital Sign Comment: EKG Rhythm: Sinus Rhythm Rhythm change?: Y MD Notified?: N - MD Response: Latest Nunez Fall Score: 20 Fall Risk: Low Risk Safety Measures: Call light Within Reach, Bed Alarm Zone 1, Side Rails Side Rails x2, Bed position Low and Locked. Fall Precautions: Yellow Socks Door Sign Patient Fall Education Report given to WILLIAM JUAN.
--- NOTE | 2020-04-07 21:00 | Consultation ---
DATE OF CONSULTATION: 04/07/2020 INFECTIOUS DISEASE CONSULTATION CONSULTING PHYSICIAN: Dennis Foy MD ATTENDING PHYSICIAN: Eleuterio Shipley MD REFERRING PHYSICIAN: Eleuterio Shipley MD REASON FOR CONSULTATION: COVID-19 infection, pneumonia, possible bacterial pneumonia, leukocytosis, fevers. CHIEF COMPLAINT: Patient's chief complaint coming to the hospital is hypoxia and history of COVID infection. HISTORY OF PRESENT ILLNESS: This is a very pleasant 29-year-old male who comes in to [facility] with hypoxia. Patient says his mother was diagnosed with COVID and patient had an outpatient test that was positive for COVID. COVID testing here at [facility] is pending. Patient has significant hypoxia and bilateral infiltrates on CT scan of the chest. Infectious Disease consultation was requested. Patient was placed on Zosyn, azithromycin, remdesivir, steroids, and dexamethasone. A CT scan of the chest showed bilateral infiltrates, extensive infiltrates and diffuse and also pneumomediastinum. CT scan of the neck showed extensive gas within facial planes of the neck. Case was discussed with Mariela Dover, nurse practitioner, for Dr. Shipley. Patient again was placed on Zosyn, azithromycin, dexamethasone, and remdesivir. Case was discussed with pharmacy also. Patient is in the step-down unit and also has fevers. REVIEW OF SYSTEMS: CONSTITUTIONAL: Main issue is the shortness of breath, hypoxia, fevers, questionable some neck discomfort, some chest discomfort. GASTROINTESTINAL: No nausea or diarrhea. GENITOURINARY: No urinary symptoms. PAST MEDICAL HISTORY: Includes obesity, otherwise negative. ALLERGIES: No known drug allergies. SOCIAL HISTORY: Negative for smoking, alcohol, or drug abuse. FAMILY HISTORY: Noncontributory. MEDICATIONS: Upon reviewing the MAR, he is following medications. Patient was placed on Zosyn, azithromycin, dexamethasone, remdesivir, ascorbic acid, Maxipime, potassium, and zinc sulfate. Outside medications, I do not believe he is on anything outside. PHYSICAL EXAMINATION: VITAL SIGNS: Temperature 100.1, pulse rate 104, respiratory rate 22, saturation 97% on non-rebreather, blood pressure 120/60. He is on 15 liters, now 4 L. GENERAL: Otherwise, he is alert, responsive, oriented. Some shortness of breath noted. HEAD AND NECK: No significant neck pain upon palpation. Maybe some swelling, but nothing significant to my exam. Oral exam, no thrush. Eye exam, no icterus. HEART: Regular. No gallop or murmur. ABDOMEN: Soft. Positive bowel sounds. Nontender. LUNGS: Bilateral rhonchi and rales. SKIN: No rash. MUSCULOSKELETAL: No effusions. PERIPHERAL VASCULAR: No gangrene. No cellulitis noted. NEUROLOGIC: Alert, responsive. GENITOURINARY: No Iniguez. LABORATORY DATA: Laboratory data is as follows: UA had 0 to 2 white cells. Creatinine 1.4. Ferritin greater than 2000. LFTs were elevated. AST is 172. LDH 1495. CRP 39.9. Potassium 2.3, creatinine 1.4. White count 11.3 and hemoglobin 13.8. IMAGING: Chest x-ray shows bilateral infiltrate. CT scan of the chest showed extensive diffuse bilateral infiltrates in the mediastinum and CT scan of the neck showed extensive gas in the neck on the facial planes. ASSESSMENT AND PLAN: 1. Patient has what looks like COVID-19 infection with pneumonia. Based on history, he has had a positive COVID test. His COVID testing here at [facility] is pending. However, CT scan certainly is consistent with COVID infection and pneumonia. Patient also has possible community-acquired pneumonia. Patient has possible what looks like extensive gas in the neck, unclear what significant this is and what the etiology of it is. The patient also has elevated LDH and pneumomediastinum. We will continue antibiotics Zosyn and azithromycin for bacterial infection and pneumonia and also remdesivir and dexamethasone for COVID-19 treatment. Monitor patient for hypoxia. Check followup laboratories, x-ray. Consider ENT evaluation. I believe Surgery is also going to be following. Monitor patient closely. Also check HIV testing. 2. Obesity. 3. Elevated creatinine. 4. . 5. No known allergies. 6. Social history is negative. 7. Family history is noncontributory. 8. Case was discussed with RN. 9. Case was discussed with Mariela Dover, nurse practitioner for Dr. Shipley. Dennis Foy M.D. DR: REHANA JOB#: [id number] CC:
[2020-04-07] MEDS: Piperacillin/Tazobactam 3.375 GM in D5W 110 ML IVPB SCH (21:30)
[2020-04-08] VITALS: BP 139/81
--- NOTE | 2020-04-08 | NUR ---
NURSE HAND-OFF REPORT: Important Events on Shift:[] Patient Status: [Stalbe] Diet: [Cardiac Diet] Pending Orders: [] Pending Results/Labs:[] Pending MD notification:[] Latest Vital Signs: Temperature 98.8 , Pulse 84 , B/P 101 /58 , Respiratory Rate 22 , O2 SAT 95 , Non-Rebreather, O2 Flow Rate 10.0 . Vital Sign Comment: [] EKG Rhythm: Sinus Rhythm Rhythm change?: N MD Notified?: N - MD Response: Latest Nunez Fall Score: 20 Fall Risk: Low Risk Safety Measures: Call light Within Reach, Bed Alarm Zone 2, Side Rails Side Rails x2, Bed position Low and Locked. Fall Precautions: Patient Fall Education Report given to [Julianne THOMAS].
[2020-04-08 04:00] VITALS: BP 127/72
[2020-04-08] MEDS: Piperacillin/Tazobactam 3.375 GM in D5W 110 ML IVPB SCH ×3 (05:34→21:45)
[2020-04-08 06:07] LABS: HEMATOCRIT 37.6 % (42.0-52.0); MEAN CORPUSCULAR VOLUME 87 FL (80-99); PLATELET COUNT 343 K/UL (150-450); RED BLOOD COUNT 4.32 M/UL (4.70-6.10); RED CELL DISTRIBUTION WIDTH 12.8 % (11.6-14.8); WHITE BLOOD COUNT 9.3 K/UL (4.8-10.8)
[2020-04-08 06:25] LABS: ALANINE AMINOTRANSFERASE 70 U/L (12-78); ALBUMIN 2.3 G/DL (3.4-5.0); ALBUMIN/GLOBULIN RATIO 0.5 (1.0-2.7); ALKALINE PHOSPHATASE 51 U/L (46-116); ASPARTATE AMINO TRANSFERASE 107 U/L (15-37); BILIRUBIN,TOTAL 0.7 MG/DL (0.2-1.0); BLOOD UREA NITROGEN 14 mg/dL (7-18); CALCIUM 8.3 MG/DL (8.5-10.1); CARBON DIOXIDE 20 MMOL/L (21-32); CHLORIDE 101 MMOL/L (98-107); CREATININE 1.1 MG/DL (0.55-1.30); SODIUM 134 MMOL/L (136-145)
[2020-04-08 06:36] LABS: POTASSIUM 2.6 MMOL/L (3.5-5.1)
[2020-04-08 07:09] LABS: PHOSPHORUS 2.8 MG/DL (2.5-4.9)
[2020-04-08 07:18] LABS: CHOLESTEROL 104 MG/DL (< 200); CREATINE KINASE 4405 U/L (26-308); FERRITIN > 2000 NG/ML (8-388); HDL CHOLESTEROL 12 MG/DL (40-60); TRIGLYCERIDES 132 MG/DL (30-150)
[2020-04-08 08:00] VITALS: BP 125/72
--- NOTE | 2020-04-08 08:19 | NUR ---
NURSE NOTES: pt in bed AOx4, pt about to have breakfast. pt on property assessment monitor, no signs of cardiac distress. pt on nondebreather and is short of breath when mask is off. Bed is locked and in lowest position call light within reach. pt room has a leak so pt will be moved to another room. will continue to monitor.
--- NOTE | 2020-04-08 08:23 | NUR ---
HAND-OFF: Report given to WILLIAM Hutchinson. Patient remains at baseline. Endorsed plan of care.
[2020-04-08] MEDS: NS w/KCl 20mEq 1000ml 1,000 ML IV SCH ×2 (09:56→19:00)
[2020-04-08] MEDS: Ascorbic Acid 500mg tab ORAL SCH ×2 (10:00→18:12)
[2020-04-08] MEDS: Docusate 100mg cap ORAL SCH ×2 (10:00→18:00)
[2020-04-08] MEDS: Zinc Sulfate 220mg ORAL SCH (10:00)
[2020-04-08] MEDS: dexAMETHasone 10mg/ml Inj IV SCH (10:00)
--- NOTE | 2020-04-08 10:25 | Pulmonology Progress Note ---
Subjective Allergies: Coded Allergies: No Known Allergies (Unverified , 03/06/19) Subjective still on 100% NRM but no resp distress no fevers, creat down to normal K still low 2.6 Objective Last 24 Hour Vital Signs Date Time Temp Pulse Resp B/P (MAP) Pulse Ox O2 Delivery O2 Flow Rate FiO2 04/08/20 04:00 97.9 70 28 127/72 (90) 92 04/08/20 04:00 90 04/08/20 00:00 80 04/08/20 00:00 97.9 93 25 139/81 (100) 92 04/07/20 21:00 Non-Rebreather 10.0 04/07/20 20:00 97.9 84 26 130/80 (97) 92 04/07/20 20:00 83 04/07/20 16:00 98 04/07/20 16:00 97.9 93 22 127/80 (96) 97 04/07/20 12:21 Non-Rebreather 4.0 04/07/20 12:02 100.1 104 22 121/60 97 Non-Rebreather 15.0 04/07/20 12:00 103 Intake and Output 04/07/20 04/08/20 19:00 07:00 Intake Total 1710 ml Balance 1710 ml Intake Oral 500 ml IV Total 1210 ml # Voids 5 # Bowel Movements 5 1 Objective General Appearance: young obese male on 100% NRM, in NAD Lines, tubes and drains: peripheral HEENT: normocephalic, atraumatic, anicteric, PERRL Neck: non-tender, supple Respiratory/Chest: no accessory muscle use, few scattered rhonchi BL Cardiovascular/Chest: normal rate, regular rhythm Abdomen: normal bowel sounds, non tender, soft, obese Extremities: normal range of motion, non-tender, no calf tenderness, normal capillary refill Skin Exam: warm/dry Neurologic: slurry tank tender II-XII grossly normal, no motor/sensory deficits, alert, orien ze x 3, responsive Musculoskeletal: normal muscle bulk Microbiology Date/Time Source Procedure Growth Status 04/07/20 10:30 Urine,Clean Catch Urine Culture - Preliminary NO GROWTH Resulted 04/07/20 09:46 Nasal Nares Right - Final Complete 04/07/20 09:46 Nasal Nares Right - Final Complete Laboratory Tests 04/07/20 10:30: Urine Color Yellow, Urine Appearance Clear, Urine pH 6.5, Urine Specific Perry 1.005, Urine Protein 3+H, Urine Glucose (UA) Negative, Urine Ketones 1+H, Urine Blood 5+H, Urine Nitrite Negative, Urine Bilirubin Negative, Urine Urobilinogen Normal, Urine Leukocyte Esterase Negative, Urine RBC 0-2H, Urine WBC 0-2, Urine Squamous Epithelial Cells Occasional, Urine Bacteria Few 04/08/20 05:55: White Blood Count 9.3, Red Blood Count 4.32L, Hemoglobin 13.0L, Hematocrit 37.6L , Mean Corpuscular Volume 87, Mean Corpuscular Hemoglobin 30.2, Mean Corpuscular Hemoglobin Concent 34.7, Red Cell Distribution Width 12.8, Platelet Count 343, Mean Platelet Volume 8.5, Neutrophils (%) (Auto) , Lymphocytes (%) (Auto) , Monocytes (%) (Auto) , Eosinophils (%) (Auto) , Basophils (%) (Auto) , Sodium Level 134#L, Potassium Level 2.6*L, Chloride Level 101, Carbon Dioxide Level 20L , Blood Urea Nitrogen 14, Creatinine 1.1, Estimat Glomerular Filtration Rate > 60, Glucose Level 155H, Hemoglobin A1c 6.3H, Osmolality 279L, Uric Acid 6.1, Calcium Level 8.3L, Phosphorus Level 2.8, Magnesium Level 2.8H, Ferritin > 2000H , Total Bilirubin 0.7, Gamma Glutamyl Transpeptidase 73, Aspartate Amino Transf (AST/SGOT) 107H, Alanine Aminotransferase (ALT/SGPT) 70, Alkaline Phosphatase 51, Ammonia 44H, Total Creatine Kinase 4405H, C-Reactive Protein, Quantitative 36.8H, Pro-B-Type Natriuretic Peptide 73, Total Protein 6.7, Albumin 2.3L, Globulin 4.4, Albumin/Globulin Ratio 0.5L, Triglycerides Level 132, Cholesterol Level 104, LDL Cholesterol 63, HDL Cholesterol 12L, Cholesterol/HDL Ratio 8.7H, Vitamin B12 Level 939, Folate 17.0, Thyroid Stimulating Hormone (TSH) 0.188L 04/08/20 07:43: Arterial Blood pH 7.443, Arterial Blood Partial Pressure CO2 28.4L, Arterial Blood Partial Pressure O2 79.0, Arterial Blood HCO3 19.0L, Arterial Blood Oxygen Saturation 95.5, Arterial Blood Base Excess -3.8L, Jonny Test Positive Current Medications Medications (Trade) Dose Ordered Sig/Bernard Route PRN Reason Start Time Stop Time Status Last Admin Dose Admin Albuterol Sulfate (Proventil MDI) 2 puff Q4H PRN INH Shortness of Breath 04/07/20 12:00 07/06/20 11:59 Ascorbic Acid (Vitamin C) 500 mg TWICE A DAY ORAL 04/07/20 18:00 05/07/20 17:59 04/08/20 10:00 Azithromycin 250 mg/Dextrose 275 ml @ 275 mls/hr Q24HRS IV 04/08/20 18:00 04/13/20 17:59 Dexamethasone Sodium Phosphate (Decadron 10mg/ ml Inj) 6 mg DAILY IV 04/08/20 09:00 04/17/20 09:01 04/08/20 10:00 Docusate Sodium (Colace) 100 mg TWICE A DAY ORAL 04/07/20 18:00 05/07/20 17:59 04/08/20 10:00 Enoxaparin Sodium (Lovenox) 120 mg Q24H SUBQ 04/07/20 17:00 07/06/20 16:59 04/07/20 17:16 Iohexol (OMNIPAQUE-300 100ml) 100 ml ONCE PRN INJ RADIOLOGY 04/07/20 14:49 04/08/20 23:59 Iohexol (OMNIPAQUE-300 100ml) 100 ml ONCE PRN INJ RADIOLOGY 04/07/20 14:49 04/08/20 23:59 Pantoprazole (Protonix) 40 mg DAILY ORAL 04/08/20 09:00 05/08/20 08:59 04/08/20 10:01 Piperacillin Sod/ Tazobactam Sod 3.375 gm/Dextrose 110 ml @ 27.5 mls/hr EVERY 8 HOURS IVPB 04/07/20 22:00 04/12/20 21:59 04/08/20 05:34 Potassium Chloride/Sodium Chloride 1,000 ml @ 100 mls/hr Q10H IV 04/07/20 13:00 05/07/20 12:59 04/07/20 17:00 Potassium Chloride (K-Dur) 40 meq TID ORAL 04/08/20 09:45 07/07/20 09:44 04/08/20 09:59 Remdesivir 100 mg/ Sodium Chloride 250 ml @ 250 mls/hr Q24H IV 04/08/20 17:00 04/11/20 17:59 Zinc Sulfate (Zinc Sulfate) 220 mg DAILY ORAL 04/07/20 12:15 07/06/20 12:14 04/08/20 10:00 Assessment/Plan Assessment/Plan ASSESSMENT Acute hypoxemic respiratory failure requiring cardioversion nonrebreather mask COVID pneumonia Pneumomediastinum, - likely due to coughing, no PTX Morbid obesity Electrolyte imbalance: hypo Na, hypo K, hypo Mg Elevated LFT Elevated CK, possible rhabdo AZUCENA -resolved PLAN OF CARE tele O2 titrate to keep sat above 92% ; wean from NRM if able MDI Albuterol prn closely monitor oxygenation, steroids [id number], remdesivvir x 5 days abx as per ID recs fup inflammatory markers: ferritin > 2000, CRP 36,8, D dimer 2.01, LDH 1495, IL 6 pending a/c with Lovenox/prophylaxis dose vit C and zinc initial CXR ->Bilateral infiltrates, suspicious for bilateral pneumonia, quite possibly viral Evidence of soft tissue gas within the fascial planes of the neck as well as soft tissue gas within the left supraclavicular fossa CT chest-> Bilateral diffuse and extensive infiltrates, most likely due to pneumonia, Pneumomediastinum. No evidence of pneumothorax CT neck -> Extensive gas within the fascial planes of the neck, as described. Etiology not demonstrated. No evidence of fluid collection to suggest abscess Other findings included dental disease, bilateral maxillary sinus polyps versus mucous retention cysts IVF nephro eval appreciated monitor renal parameters, LFT, CK trending down, AST and total bili down [id number],3 prediabetes., no concentrated sweets diet lipid panel stable supportive care replace lytes, additional K case discussed and evaluated by supervising physician Mariela Dover [employer] Apr 08, 2020 10:25
[2020-04-08 12:00] VITALS: BP 119/56
--- NOTE | 2020-04-08 12:59 | Cardiology Report ---
APPROVED REPORT EKG Measurement Heart [id number] <Conclusion> Sinus tachycardia Otherwise normal ECG
--- NOTE | 2020-04-08 14:26 | NUR ---
CASE MANAGEMENT:REVIEW BIBA FROM HOME SI: RESPIRATORY FAILURE. COVID POSITIVE 98.2 115 22 144/91 84% ON RA WBC+11.3 K-2.3 IS PLACED ON NRB IV ROCEPHIN 1L NS BOLUS IV MAG SULFATE KCL PO URINE CX CXR : TO TELEMETRY UNIT Addendum: 04/08/20 at 1430 by STACY PATEL LVN LVN 04/08/20 START IV REMDESIVIR
[2020-04-08 16:00] VITALS: BP 127/72
--- NOTE | 2020-04-08 16:14 | Nephrology Progress Note ---
Assessment/Plan Problem List: (1) AZUCENA (acute kidney injury) (2) Hypokalemia (3) Dehydration (4) Diarrhea (5) Obesity (6) Hypoxemic respiratory failure, chronic (7) COVID-19 Assessment Acute hypoxemic respiratory failure requiring cardioversion nonrebreather mask COVID pneumonia Morbid obesity Electrolyte imbalance: hypo Na, hypo K, hypo Mg Elevated LFT Elevated CK, possible rhabdo AZUCENA Plan April 08: Labs reviewed. Serum sodium improved. Low potassium replaced. Serum creatinine lowered. Meds reviewed. Receiving treatment for COVID-19. Continue to monitor renal parameters and electrolytes. Subjective ROS Limited/Unobtainable: No Constitutional: Reports: malaise, weakness Objective Objective Last 24 Hour Vital Signs Date Time Temp Pulse Resp B/P (MAP) Pulse Ox O2 Delivery O2 Flow Rate FiO2 04/08/20 12:00 96.8 89 34 119/56 (77) 99 04/08/20 12:00 87 04/08/20 09:00 Non-Rebreather 10.0 04/08/20 08:00 96.1 96 36 125/72 (89) 99 04/08/20 08:00 83 04/08/20 04:00 97.9 70 28 127/72 (90) 92 04/08/20 04:00 90 04/08/20 00:00 80 04/08/20 00:00 97.9 93 25 139/81 (100) 92 04/07/20 21:00 Non-Rebreather 10.0 04/07/20 20:00 97.9 84 26 130/80 (97) 92 04/07/20 20:00 83 Intake and Output 04/07/20 04/08/20 19:00 07:00 Intake Total 1710 ml Balance 1710 ml Intake Oral 500 ml IV Total 1210 ml # Voids 5 # Bowel Movements 5 1 Laboratory Tests 04/08/20 05:55: White Blood Count 9.3, Red Blood Count 4.32L, Hemoglobin 13.0L, Hematocrit 37.6L , Mean Corpuscular Volume 87, Mean Corpuscular Hemoglobin 30.2, Mean Corpuscular Hemoglobin Concent 34.7, Red Cell Distribution Width 12.8, Platelet Count 343, Mean Platelet Volume 8.5, Neutrophils (%) (Auto) , Lymphocytes (%) (Auto) , Monocytes (%) (Auto) , Eosinophils (%) (Auto) , Basophils (%) (Auto) , Sodium Level 134#L, Potassium Level 2.6*L, Chloride Level 101, Carbon Dioxide Level 20L , Blood Urea Nitrogen 14, Creatinine 1.1, Estimat Glomerular Filtration Rate > 60, Glucose Level 155H, Hemoglobin A1c 6.3H, Osmolality 279L, Uric Acid 6.1, Calcium Level 8.3L, Phosphorus Level 2.8, Magnesium Level 2.8H, Ferritin > 2000H , Total Bilirubin 0.7, Gamma Glutamyl Transpeptidase 73, Aspartate Amino Transf (AST/SGOT) 107H, Alanine Aminotransferase (ALT/SGPT) 70, Alkaline Phosphatase 51, Ammonia 44H, Total Creatine Kinase 4405H, C-Reactive Protein, Quantitative 36.8H, Pro-B-Type Natriuretic Peptide 73, Total Protein 6.7, Albumin 2.3L, Globulin 4.4, Albumin/Globulin Ratio 0.5L, Triglycerides Level 132, Cholesterol Level 104, LDL Cholesterol 63, HDL Cholesterol 12L, Cholesterol/HDL Ratio 8.7H, Vitamin B12 Level 939, Folate 17.0, Thyroid Stimulating Hormone (TSH) 0.188L 04/08/20 07:43: Arterial Blood pH 7.443, Arterial Blood Partial Pressure CO2 28.4L, Arterial Blood Partial Pressure O2 79.0, Arterial Blood HCO3 19.0L, Arterial Blood Oxygen Saturation 95.5, Arterial Blood Base Excess -3.8L, Jonny Test Positive 04/08/20 11:36: POC Whole Blood Glucose 171H Height (Feet): 5 Height (Inches): 8.00 Weight (Pounds): 374 General Appearance: no apparent distress EENT: other - On nonrebreather mask Cardiovascular: tachycardia Respiratory/Chest: decreased breath sounds Abdomen: distended, other - Obese Jamey Mar MD Apr 08, 2020 16:14
[2020-04-08] MEDS: Maintenance Dose:Remdesivir 100mg/NS 230ml x 4 Doses IV SCH ×2 (17:32)
[2020-04-08] MEDS: Enoxaparin 120 mg inj SUBQ SCH (17:33)
--- NOTE | 2020-04-08 17:53 | Consultation ---
History of Present Illness General Date patient seen: Apr 08, 2020 Reason for Hospitalization: Dyspnea/Respdistress Present Illness HPI 29M recently dx covid + sob noted to have pneumomediastinum and extensive air subq. surgery called to evaluate and assist with care. patient seen, chart reviewed, patient examined. no n/v/f/c. t 100.1 prior. labs noted. states overall feels okay but some abd cramping with moving around. no neck or chest pain. no recent trauma Allergies: Coded Allergies: No Known Allergies (Unverified , 03/06/19) COVID-19 Screening Contact w/high risk pt: Yes Experienced COVID-19 symptoms?: Yes Coronavirus symptoms experienc: Shortness of Breath, Cough, Nausea/Vomiting Medication History No Active Prescriptions or Reported Meds Patient History History Provided By: Patient, Medical Record, PMD Healthcare decision maker Resuscitation status Advanced Directive on File Past Medical/Surgical History Past Medical/Surgical History: (1) Dehydration (2) Hypokalemia (3) Diarrhea (4) Obesity (5) AZUCENA (acute kidney injury) (6) Hypoxemic respiratory failure, chronic (7) COVID-19 Review of Systems Review of Symptoms General ROS: no weight loss or fever Psychological ROS: no depression or mood changes, no memory loss Ophthalmic ROS: no visual changes or eye irritation ENT ROS: no nasal congestion, hearing loss, dizziness Allergy and Immunology ROS: no allergic symptoms or urticaria Hematological and Lymphatic ROS: no swollen glands, unusual bleeding or bruising Endocrine ROS: no polyuria, polydipsia, weight changes, temperature intolerance Respiratory ROS: no cough, shortness of breath, or wheezing Cardiovascular ROS: no chest pain or dyspnea on exertion Gastrointestinal ROS: denies abdominal pain, bright red blood in stool. Musculoskeletal ROS: no myalgias or arthralgias Neurological ROS: no TIA or stroke symptoms Dermatological ROS: no new or changing skin lesions, rashes or pruritis Physical Exam Physical Exam General appearance: alert, cooperative, no distress, appears stated age Head: Normocephalic, without obvious abnormality, atraumatic Eyes: conjunctivae/corneas clear. PERRL, EOM's intact. Fundi benign Throat: Lips, mucosa, and tongue normal. Teeth and gums normal Neck: supple, symmetrical, trachea midline, no adenopathy, thyroid: not enlarged, symmetric, no tenderness/mass/nodules, no carotid bruit and no JVD Lungs: clear to auscultation bilaterally Heart: regular rate and rhythm, S1, S2 normal, no murmur, click, rub or gallop Abdomen: soft, non-tender. Bowel sounds normal. No masses, no organomegaly Extremities: extremities normal, atraumatic, no cyanosis or edema Pulses: 2+ and symmetric Skin: Skin color, texture, turgor normal. No rashes or lesions Neurologic: Grossly normal Last 24 Hour Vital Signs Date Time Temp Pulse Resp B/P (MAP) Pulse Ox O2 Delivery O2 Flow Rate FiO2 04/08/20 16:00 97.9 70 28 127/72 (90) 92 04/08/20 16:00 92 04/08/20 12:00 96.8 89 34 119/56 (77) 99 04/08/20 12:00 87 04/08/20 09:00 Non-Rebreather 10.0 04/08/20 08:00 96.1 96 36 125/72 (89) 99 04/08/20 08:00 83 04/08/20 04:00 97.9 70 28 127/72 (90) 92 04/08/20 04:00 90 04/08/20 00:00 80 04/08/20 00:00 97.9 93 25 139/81 (100) 92 04/07/20 21:00 Non-Rebreather 10.0 04/07/20 20:00 97.9 84 26 130/80 (97) 92 04/07/20 20:00 83 Intake and Output 04/07/20 04/08/20 19:00 07:00 Intake Total 1710 ml Balance 1710 ml Intake Oral 500 ml IV Total 1210 ml # Voids 5 # Bowel Movements 5 1 Laboratory Tests Test 04/08/20 05:55 04/08/20 07:43 04/08/20 11:36 White Blood Count 9.3 K/UL (4.8-10.8) Red Blood Count 4.32 M/UL (4.70-6.10) L Hemoglobin 13.0 G/DL (14.2-18.0) L Hematocrit 37.6 % (42.0-52.0) L Mean Corpuscular Volume 87 FL (80-99) Mean Corpuscular Hemoglobin 30.2 PG (27.0-31.0) Mean Corpuscular Hemoglobin Concent 34.7 G/DL (32.0-36.0) Red Cell Distribution Width 12.8 % (11.6-14.8) Platelet Count 343 K/UL (150-450) Mean Platelet Volume 8.5 FL (6.5-10.1) Neutrophils (%) (Auto) % (45.0-75.0) Lymphocytes (%) (Auto) % (20.0-45.0) Monocytes (%) (Auto) % (1.0-10.0) Eosinophils (%) (Auto) % (0.0-3.0) Basophils (%) (Auto) % (0.0-2.0) Sodium Level 134 MMOL/L (136-145) #L Potassium Level 2.6 MMOL/L (3.5-5.1) *L Chloride Level 101 MMOL/L (98-107) Carbon Dioxide Level 20 MMOL/L (21-32) L Blood Urea Nitrogen 14 mg/dL (7-18) Creatinine 1.1 MG/DL (0.55-1.30) Estimat Glomerular Filtration Rate > 60 mL/min (>60) Glucose Level 155 MG/DL (74-106) H Hemoglobin A1c 6.3 % (4.3-6.0) H Osmolality 279 mOsm/kg (297-317) L Uric Acid 6.1 MG/DL (2.6-7.2) Calcium Level 8.3 MG/DL (8.5-10.1) L Phosphorus Level 2.8 MG/DL (2.5-4.9) Magnesium Level 2.8 MG/DL (1.8-2.4) H Ferritin > 2000 NG/ML (8-388) H Total Bilirubin 0.7 MG/DL (0.2-1.0) Gamma Glutamyl Transpeptidase 73 U/L (5-85) Aspartate Amino Transf (AST/SGOT) 107 U/L (15-37) H Alanine Aminotransferase (ALT/SGPT) 70 U/L (12-78) Alkaline Phosphatase 51 U/L (46-116) Ammonia 44 umol/L (11-32) H Total Creatine Kinase 4405 U/L (26-308) H C-Reactive Protein, Quantitative 36.8 mg/dL (0.00-0.90) H Pro-B-Type Natriuretic Peptide 73 pg/mL (0-125) Total Protein 6.7 G/DL (6.4-8.2) Albumin 2.3 G/DL (3.4-5.0) L Globulin 4.4 g/dL Albumin/Globulin Ratio 0.5 (1.0-2.7) L Triglycerides Level 132 MG/DL (30-150) Cholesterol Level 104 MG/DL (< 200) LDL Cholesterol 63 mg/dL (<100) HDL Cholesterol 12 MG/DL (40-60) L Cholesterol/HDL Ratio 8.7 (3.3-4.4) H Vitamin B12 Level 939 PG/ML (193-986) Folate 17.0 NG/ML (8.6-58.9) Thyroid Stimulating Hormone (TSH) 0.188 uiU/mL (0.358-3.740) Arterial Blood pH 7.443 (7.350-7.450) Arterial Blood Partial Pressure CO2 28.4 mmHg (35.0-45.0) L Arterial Blood Partial Pressure O2 79.0 mmHg (75.0-100.0) Arterial Blood HCO3 19.0 mmol/L (22.0-26.0) L Arterial Blood Oxygen Saturation 95.5 % (95-100) Arterial Blood Base Excess -3.8 (-2-2) L Jonny Test Positive POC Whole Blood Glucose 171 MG/DL (74-106) H Height (Feet): 5 Height (Inches): 8.00 Weight (Pounds): 374 Medications Current Medications Medications (Trade) Dose Ordered Sig/Bernard Route PRN Reason Start Time Stop Time Status Last Admin Dose Admin Albuterol Sulfate (Proventil MDI) 2 puff Q4H PRN INH Shortness of Breath 04/07/20 12:00 07/06/20 11:59 Ascorbic Acid (Vitamin C) 500 mg TWICE A DAY ORAL 04/07/20 18:00 05/07/20 17:59 04/08/20 10:00 Azithromycin 250 mg/Dextrose 275 ml @ 275 mls/hr Q24HRS IV 04/08/20 18:00 04/13/20 17:59 Dexamethasone Sodium Phosphate (Decadron 10mg/ ml Inj) 6 mg DAILY IV 04/08/20 09:00 04/17/20 09:01 04/08/20 10:00 Docusate Sodium (Colace) 100 mg TWICE A DAY ORAL 04/07/20 18:00 05/07/20 17:59 04/08/20 10:00 Enoxaparin Sodium (Lovenox) 120 mg Q24H SUBQ 04/07/20 17:00 07/06/20 16:59 04/08/20 17:33 Iohexol (OMNIPAQUE-300 100ml) 100 ml ONCE PRN INJ RADIOLOGY 04/07/20 14:49 04/08/20 23:59 Iohexol (OMNIPAQUE-300 100ml) 100 ml ONCE PRN INJ RADIOLOGY 04/07/20 14:49 04/08/20 23:59 Pantoprazole (Protonix) 40 mg DAILY ORAL 04/08/20 09:00 05/08/20 08:59 04/08/20 10:01 Piperacillin Sod/ Tazobactam Sod 3.375 gm/Dextrose 110 ml @ 27.5 mls/hr EVERY 8 HOURS IVPB 04/07/20 22:00 04/12/20 21:59 04/08/20 13:20 Potassium Chloride/Sodium Chloride 1,000 ml @ 100 mls/hr Q10H IV 04/07/20 13:00 05/07/20 12:59 04/07/20 17:00 Potassium Chloride (K-Dur) 40 meq TID ORAL 04/08/20 09:45 07/07/20 09:44 04/08/20 13:19 Remdesivir 100 mg/ Sodium Chloride 250 ml @ 250 mls/hr Q24H IV 04/08/20 17:00 04/11/20 17:59 04/08/20 17:32 Zinc Sulfate (Zinc Sulfate) 220 mg DAILY ORAL 04/07/20 12:15 07/06/20 12:14 04/08/20 10:00 Assessment/Plan Problem List: (1) Pneumomediastinum Assessment & Plan: 29M with covid, sob, noted to have extensive air neck, face, mediastinum. no trauma. no ptx etiology unknown. no abscess. afebrile, HD Stable, labs noted ?bleb tolerating diet no pain okay for diet will monitor clinically will cont work up etiology Gas is seen within the deep fascial planes of the neck as well as superficially. Gas is seen in the retropharyngeal space extending from the level of the adenoids into the upper mediastinum, within the vascular space surrounding the carotid sheaths, within the right parapharyngeal space, surrounding the thyroid, in the lower neck anterior to the strap muscles and also adjacent and superficial to the left sternocleidomastoid. Some gas is also seen anterior to the upper medial pectoralis major muscle on the left and in the bilateral supraclavicular fossae. No focal fluid collection to suggest abscess demonstrated. No definite tracheal or esophageal wall defect is demonstrated. Gas also extends into the mediastinum and is described in more detail on separate chest CT report There are bilateral maxillary sinus polyps versus mucous retention cysts. There is evidence of dental disease with severe caries and periodontal changes involving the left second maxillary molar. No cervical mass or adenopathy demonstrated. The salivary glands are unremarkable. The visualized lungs demonstrate extensive pulmonary parenchymal disease. This is described on separate chest CT report. Impression: Extensive gas within the fascial planes of the neck, as described. Etiology not demonstrated. No evidence of fluid collection to suggest abscess Other findings as noted, including dental disease, bilateral maxillary sinus polyps versus mucous retention cysts ICD Codes: J98.2 - Interstitial emphysema SNOMED: 64786802 (2) Dehydration ICD Codes: E86.0 - Dehydration SNOMED: 86488877, 385903591 (3) Hypokalemia ICD Codes: E87.6 - Hypokalemia SNOMED: 57747961, 482821630 (4) Diarrhea ICD Codes: R19.7 - Diarrhea, unspecified SNOMED: 98065245 (5) Obesity ICD Codes: E66.9 - Obesity, unspecified SNOMED: 550186621, 071037815 (6) AZUCENA (acute kidney injury) ICD Codes: N17.9 - Acute kidney failure, unspecified SNOMED: 70890520, 3822595 (7) Hypoxemic respiratory failure, chronic ICD Codes: J96.11 - Chronic respiratory failure with hypoxia SNOMED: 127892864 (8) COVID-19 ICD Codes: U07.1 - COVID-19 SNOMED: 698654067 [facility] Hospital declaration \ Leoncio Bryant Apr 08, 2020 17:53
[2020-04-08] MEDS: Azithromycin 250 MG in D5W 275 ML IV SCH (18:13)
[2020-04-08 20:00] VITALS: BP 113/52
--- NOTE | 2020-04-08 20:02 | NUR ---
NURSE HAND-OFF REPORT: Important Events on Shift:[] pt is stable and states that he feels a lot better, endoresed to night nurse to collect stool pt has diarrhea but was unable collect stool because he also peeh in the half hat. Patient Status: [] full code Diet: []cardiac Pending Orders: [] Pending Results/Labs:[] Pending MD notification:[] Latest Vital Signs: Temperature 97.9 , Pulse 92 , B/P 127 /72 , Respiratory Rate 28 , O2 SAT 92 , Non-Rebreather, O2 Flow Rate 10.0 . Vital Sign Comment: [] EKG Rhythm: Sinus Rhythm Rhythm change?: N MD Notified?: N - MD Response: Latest Nunez Fall Score: 20 Fall Risk: Low Risk Safety Measures: Call light Within Reach, Bed Alarm Zone 2, Side Rails Side Rails x2, Bed position Low and Locked. Fall Precautions: y Patient Fall Education y Report given to []. Rojelio/WILLIAM
--- NOTE | 2020-04-08 20:08 | NUR ---
NURSE NOTES: Patient received from Evangelina THOMAS. Patient alert and oriented x4. No c/o pain and no s/s of distress. Saturating well on 10L of oxygen via Non rebreather mask. IV site patent and intact on Right FA 22G. Needs attended. Bed in lowest position and locked. Call light and bedside table within reach. Will continue plan of care. Will titrate oxygen as tolerated.
[2020-04-09] VITALS: BP 129/50
[2020-04-09 04:00] VITALS: BP 101/58
[2020-04-09] MEDS: NS w/KCl 20mEq 1000ml 1,000 ML IV SCH ×2 (05:45→16:22)
[2020-04-09 07:05] LABS: ALANINE AMINOTRANSFERASE 65 U/L (12-78); ALBUMIN 2.2 G/DL (3.4-5.0); ALBUMIN/GLOBULIN RATIO 0.6 (1.0-2.7); ALKALINE PHOSPHATASE 55 U/L (46-116); ANION GAP 12 mmol/L (5-15); ASPARTATE AMINO TRANSFERASE 56 U/L (15-37); BILIRUBIN,DIRECT 0.2 MG/DL (0.0-0.3); BILIRUBIN,TOTAL 0.6 MG/DL (0.2-1.0); BLOOD UREA NITROGEN 16 mg/dL (7-18); CALCIUM 8.2 MG/DL (8.5-10.1); CARBON DIOXIDE 19 MMOL/L (21-32); CHLORIDE 106 MMOL/L (98-107); CREATININE 1.2 MG/DL (0.55-1.30); POTASSIUM 3.6 MMOL/L (3.5-5.1); SODIUM 137 MMOL/L (136-145)
--- NOTE | 2020-04-09 07:12 | NUR ---
NURSE NOTES: Patient received from Gerardo THOMAS. Patient A/O x4. No SOB or acutge distress noted. No pain noted. Saturating well on 10L of oxygen via Non rebreather mask. IV site patent and intact on Right FA 22G. Needs attended. Bed in lowest position and locked. Call light and bedside table within reach. Will continue plan of care. Will titrate oxygen as tolerated.
[2020-04-09 07:14] LABS: HEMATOCRIT 29.6 % (42.0-52.0); HEMOGLOBIN 10.7 G/DL (14.2-18.0); MEAN CORPUSCULAR VOLUME 84 FL (80-99); PLATELET COUNT 424 K/UL (150-450); RED BLOOD COUNT 3.51 M/UL (4.70-6.10); RED CELL DISTRIBUTION WIDTH 13.7 % (11.6-14.8); WHITE BLOOD COUNT 11.3 K/UL (4.8-10.8)
[2020-04-09] MEDS: Piperacillin/Tazobactam 3.375 GM in D5W 110 ML IVPB SCH ×3 (07:45→22:00)
[2020-04-09 08:00] VITALS: BP_SYST 115; BP_DIAS 55; BP_DIAS 57
--- NOTE | 2020-04-09 08:45 | Diagnostic Imaging Report ---
EXAM: XR Chest, 1 View CLINICAL HISTORY: INFECT TECHNIQUE: Frontal view of the chest. COMPARISON: 2 days prior FINDINGS: Lungs: There is been improvement in mild patchy diffuse bilateral pneumonia. Pleural space: Unremarkable. No pneumothorax. Heart: Unremarkable. No cardiomegaly. Mediastinum: There is been resolution of pneumomediastinum. Bones/joints: Unremarkable. IMPRESSION: 1. There is been improvement in mild patchy diffuse bilateral pneumonia. 2. There is been resolution of pneumomediastinum.
--- NOTE | 2020-04-09 08:51 | Pulmonology Progress Note ---
Subjective ROS Limited/Unobtainable: No Allergies: Coded Allergies: No Known Allergies (Unverified , 03/06/19) Subjective still on 100% NRM but no resp distress no fevers, CXR 04/09 better, pneumomediastinum resolved creat down to normal Objective Last 24 Hour Vital Signs Date Time Temp Pulse Resp B/P (MAP) Pulse Ox O2 Delivery O2 Flow Rate FiO2 04/09/20 04:00 82 04/09/20 04:00 98.8 84 22 101/58 (72) 95 04/09/20 00:00 98.6 78 20 129/50 (76) 95 04/09/20 00:00 78 04/08/20 21:00 Non-Rebreather 10.0 04/08/20 20:00 100 04/08/20 20:00 97.9 99 22 113/52 (72) 93 04/08/20 16:00 97.9 70 28 127/72 (90) 92 04/08/20 16:00 92 04/08/20 12:00 96.8 89 34 119/56 (77) 99 04/08/20 12:00 87 04/08/20 09:00 Non-Rebreather 10.0 Intake and Output 04/08/20 04/09/20 19:00 07:00 Intake Total 730 ml 300 ml Output Total 200 ml 700 ml Balance 530 ml -400 ml Intake Oral 730 ml 300 ml Output Urine Total 200 ml 700 ml # Voids 6 6 # Bowel Movements 1 1 Objective General Appearance: young obese male on 100% NRM, in NAD Lines, tubes and drains: peripheral HEENT: normocephalic, atraumatic, anicteric, PERRL Neck: non-tender, supple Respiratory/Chest: no accessory muscle use, few scattered rhonchi BL Cardiovascular/Chest: normal rate, regular rhythm Abdomen: normal bowel sounds, non tender, soft, obese Extremities: normal range of motion, non-tender, no calf tenderness, normal capillary refill Skin Exam: warm/dry 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, no motor/sensory deficits, alert, orient ed x 3, responsive Musculoskeletal: normal muscle bulk Microbiology Date/Time Source Procedure Growth Status 04/07/20 10:30 Urine,Clean Catch Urine Culture - Final NO GROWTH AFTER 48 HOURS Complete 04/07/20 09:46 Nasal Nares Right - Final Complete 04/07/20 09:46 Nasal Nares Right - Final Complete 04/07/20 09:20 Blood Blood Culture - Preliminary NO GROWTH AFTER 24 HOURS Resulted 04/07/20 09:05 Blood Blood Culture - Preliminary NO GROWTH AFTER 24 HOURS Resulted Laboratory Tests 04/08/20 11:36: POC Whole Blood Glucose 171H 04/09/20 03:30: White Blood Count 11.3H, Red Blood Count 3.51L, Hemoglobin 10.7L, Hematocrit 29.6L, Mean Corpuscular Volume 84, Mean Corpuscular Hemoglobin 30.6, Mean Corpuscular Hemoglobin Concent 36.2H, Red Cell Distribution Width 13.7, Platelet Count 424, Mean Platelet Volume 7.2, Neutrophils (%) (Auto) , Lymphocytes (%) (Auto) , Monocytes (%) (Auto) , Eosinophils (%) (Auto) , Basophils (%) (Auto) , Neutrophils % (Manual) [Pending], Lymphocytes % (Manual) [Pending], Platelet Estimate [Pending], Platelet Morphology [Pending], Sodium Level 137, Potassium Level 3.6, Chloride Level 106, Carbon Dioxide Level 19L, Anion Gap 12, Blood Urea Nitrogen 16, Creatinine 1.2, Estimat Glomerular Filtration Rate > 60, Glucose Level 138H, Uric Acid [Pending], Calcium Level 8.2L, Phosphorus Level [Pending], Magnesium Level [Pending], Ferritin [Pending], Total Bilirubin 0.6, Direct Bilirubin 0.2, Aspartate Amino Transf (AST/SGOT) 56H, Alanine Aminotransferase (ALT/SGPT) 65, Alkaline Phosphatase 55, Lactate Dehydrogenase 1083H, Total Creatine Kinase [Pending], C-Reactive Protein, Quantitative [Pending], Pro-B-Type Natriuretic Peptide [Pending], Total Protein 6.2L, Albumin 2.2L, Globulin 4.0, Albumin/Globulin Ratio 0.6L Current Medications Medications (Trade) Dose Ordered Sig/Bernard Route PRN Reason Start Time Stop Time Status Last Admin Dose Admin Albuterol Sulfate (Proventil MDI) 2 puff Q4H PRN INH Shortness of Breath 04/07/20 12:00 07/06/20 11:59 Ascorbic Acid (Vitamin C) 500 mg TWICE A DAY ORAL 04/07/20 18:00 05/07/20 17:59 04/08/20 18:12 Azithromycin 250 mg/Dextrose 275 ml @ 275 mls/hr Q24HRS IV 04/08/20 18:00 04/13/20 17:59 04/08/20 18:13 Dexamethasone Sodium Phosphate (Decadron 10mg/ ml Inj) 6 mg DAILY IV 04/08/20 09:00 04/17/20 09:01 04/08/20 10:00 Docusate Sodium (Colace) 100 mg TWICE A DAY ORAL 04/07/20 18:00 05/07/20 17:59 04/08/20 10:00 Enoxaparin Sodium (Lovenox) 120 mg Q24H SUBQ 04/07/20 17:00 07/06/20 16:59 04/08/20 17:33 Pantoprazole (Protonix) 40 mg DAILY ORAL 04/08/20 09:00 05/08/20 08:59 04/08/20 10:01 Piperacillin Sod/ Tazobactam Sod 3.375 gm/Dextrose 110 ml @ 27.5 mls/hr EVERY 8 HOURS IVPB 04/07/20 22:00 04/12/20 21:59 04/09/20 07:45 Potassium Chloride/Sodium Chloride 1,000 ml @ 100 mls/hr Q10H IV 04/07/20 13:00 05/07/20 12:59 04/09/20 05:45 Potassium Chloride (K-Dur) 40 meq TID ORAL 04/08/20 09:45 07/07/20 09:44 04/08/20 18:12 Remdesivir 100 mg/ Sodium Chloride 250 ml @ 250 mls/hr Q24H IV 04/08/20 17:00 04/11/20 17:59 04/08/20 17:32 Zinc Sulfate (Zinc Sulfate) 220 mg DAILY ORAL 04/07/20 12:15 07/06/20 12:14 04/08/20 10:00 Assessment/Plan Assessment/Plan ASSESSMENT Acute hypoxemic respiratory failure requiring nonrebreather mask COVID pneumonia Pneumomediastinum, - likely due to coughing, no PTX -resolved Morbid obesity Electrolyte imbalance: hypo Na, hypo K, hypo Mg Elevated LFT Elevated CK, possible rhabdo AZUCENA -resolved PLAN OF CARE tele O2 titrate to keep sat above 92% ; wean from NRM if able MDI Albuterol prn closely monitor oxygenation, steroids [id number], remdesivvir x 5 days abx as per ID recs fup CXR 04/09 -> improvement in mild patchy diffuse bilateral pneumonia. Resolution of pneumomediastinum. fup inflammatory markers: ferritin > 2000, CRP 36,8, D dimer 2.01, LDH 1495-, IL 6 pending -pending for this am a/c with Lovenox/prophylaxis dose vit C and zinc initial CXR ->Bilateral infiltrates, suspicious for bilateral pneumonia, quite possibly Evidence of soft tissue gas within the fascial planes of the neck as well as soft tissue gas within the left supraclavicular fossa CT chest-> Bilateral diffuse and extensive infiltrates, most likely due to pneumonia, Pneumomediastinum. No evidence of pneumothorax now on fup CXR 04/[address] neck -> Extensive gas within the fascial planes of the neck, as described. Etiology not demonstrated. No evidence of fluid collection to suggest abscess Other findings included dental disease, bilateral maxillary sinus polyps versus mucous retention cysts IVF nephro eval appreciated monitor renal parameters, LFT, CK trending down, AST and total bili down [id number] prediabetes., no concentrated sweets diet lipid panel stable supportive care replace mcihael, case discussed and evaluated by supervising physician Mariela Dover NP Apr 09, 2020 08:51
[2020-04-09 09:01] LABS: PHOSPHORUS 3.8 MG/DL (2.5-4.9)
[2020-04-09] MEDS: dexAMETHasone 10mg/ml Inj IV SCH (09:02)
[2020-04-09] MEDS: Docusate 100mg cap ORAL SCH ×2 (09:03→18:12)
[2020-04-09] MEDS: Ascorbic Acid 500mg tab ORAL SCH ×2 (09:03→18:13)
[2020-04-09] MEDS: Zinc Sulfate 220mg ORAL SCH (09:03)
[2020-04-09 10:33] LABS: FERRITIN 1917 NG/ML (8-388)
--- NOTE | 2020-04-09 11:08 | Nephrology Progress Note ---
Assessment/Plan Problem List: (1) AZUCENA (acute kidney injury) (2) Hypokalemia (3) Dehydration (4) Diarrhea (5) Obesity (6) Hypoxemic respiratory failure, chronic (7) COVID-19 Assessment Acute hypoxemic respiratory failure requiring cardioversion nonrebreather mask COVID pneumonia Morbid obesity Electrolyte imbalance: hypo Na, hypo K, hypo Mg Elevated LFT Elevated CK, possible rhabdo AZUCENA Plan April 09: Labs reviewed. Stable from renal standpoint of view. Continue per PMD and consultants. April 08: Labs reviewed. Serum sodium improved. Low potassium replaced. Serum creatinine lowered. Meds reviewed. Receiving treatment for COVID-19. Continue to monitor renal parameters and electrolytes. Subjective ROS Limited/Unobtainable: No Objective Objective Last 24 Hour Vital Signs Date Time Temp Pulse Resp B/P (MAP) Pulse Ox O2 Delivery O2 Flow Rate FiO2 04/09/20 04:00 82 04/09/20 04:00 98.8 84 22 101/58 (72) 95 04/09/20 00:00 98.6 78 20 129/50 (76) 95 04/09/20 00:00 78 04/08/20 21:00 Non-Rebreather 10.0 04/08/20 20:00 100 04/08/20 20:00 97.9 99 22 113/52 (72) 93 04/08/20 16:00 97.9 70 28 127/72 (90) 92 04/08/20 16:00 92 04/08/20 12:00 96.8 89 34 119/56 (77) 99 04/08/20 12:00 87 Intake and Output 04/08/20 04/09/20 19:00 07:00 Intake Total 730 ml 300 ml Output Total 200 ml 700 ml Balance 530 ml -400 ml Intake Oral 730 ml 300 ml Output Urine Total 200 ml 700 ml # Voids 6 6 # Bowel Movements 1 1 Current Medications Medications (Trade) Dose Ordered Sig/Bernard Route PRN Reason Start Time Stop Time Status Last Admin Dose Admin Albuterol Sulfate (Proventil MDI) 2 puff Q4H PRN INH Shortness of Breath 04/07/20 12:00 07/06/20 11:59 Ascorbic Acid (Vitamin C) 500 mg TWICE A DAY ORAL 04/07/20 18:00 05/07/20 17:59 04/09/20 09:03 Azithromycin 250 mg/Dextrose 275 ml @ 275 mls/hr Q24HRS IV 04/08/20 18:00 04/13/20 17:59 04/08/20 18:13 Dexamethasone Sodium Phosphate (Decadron 10mg/ ml Inj) 6 mg DAILY IV 04/08/20 09:00 04/17/20 09:01 04/09/20 09:02 Docusate Sodium (Colace) 100 mg TWICE A DAY ORAL 04/07/20 18:00 05/07/20 17:59 04/09/20 09:03 Enoxaparin Sodium (Lovenox) 120 mg Q24H SUBQ 04/07/20 17:00 07/06/20 16:59 04/08/20 17:33 Pantoprazole (Protonix) 40 mg DAILY ORAL 04/08/20 09:00 05/08/20 08:59 04/09/20 09:02 Piperacillin Sod/ Tazobactam Sod 3.375 gm/Dextrose 110 ml @ 27.5 mls/hr EVERY 8 HOURS IVPB 04/07/20 22:00 04/12/20 21:59 04/09/20 07:45 Potassium Chloride/Sodium Chloride 1,000 ml @ 100 mls/hr Q10H IV 04/07/20 13:00 05/07/20 12:59 04/09/20 05:45 Potassium Chloride (K-Dur) 40 meq TID ORAL 04/08/20 09:45 07/07/20 09:44 04/09/20 09:03 Remdesivir 100 mg/ Sodium Chloride 250 ml @ 250 mls/hr Q24H IV 04/08/20 17:00 04/11/20 17:59 04/08/20 17:32 Zinc Sulfate (Zinc Sulfate) 220 mg DAILY ORAL 04/07/20 12:15 07/06/20 12:14 04/09/20 09:03 Laboratory Tests 04/08/20 11:36: POC Whole Blood Glucose 171H 04/09/20 03:30: White Blood Count 11.3H, Red Blood Count 3.51L, Hemoglobin 10.7L, Hematocrit 29.6L, Mean Corpuscular Volume 84, Mean Corpuscular Hemoglobin 30.6, Mean Corpuscular Hemoglobin Concent 36.2H, Red Cell Distribution Width 13.7, Platelet Count 424, Mean Platelet Volume 7.2, Neutrophils (%) (Auto) , Lymphocytes (%) (Auto) , Monocytes (%) (Auto) , Eosinophils (%) (Auto) , Basophils (%) (Auto) , Differential Total Cells Counted 100, Neutrophils % (Manual) 87H, Lymphocytes % (Manual) 7L, Monocytes % (Manual) 6, Eosinophils % (Manual) 0, Basophils % (Manual) 0, Band Neutrophils 0, Platelet Estimate Adequate, Platelet Morphology Normal, Red Blood Cell Morphology Normal, Sodium Level 137, Potassium Level 3.6, Chloride Level 106, Carbon Dioxide Level 19L, Anion Gap 12, Blood Urea Nitrogen 16, Creatinine 1.2, Estimat Glomerular Filtration Rate > 60, Glucose Level 138H, Uric Acid 4.7, Calcium Level 8.2L, Phosphorus Level 3.8, Magnesium Level 2.6H, Ferritin 1917H, Total Bilirubin 0.6, Direct Bilirubin 0.2, Aspartate Amino Transf (AST/SGOT) 56H, Alanine Aminotransferase (ALT/SGPT) 65, Alkaline Phosphatase 55, Lactate Dehydrogenase 1083H, Total Creatine Kinase [Pending], C- Reactive Protein, Quantitative 17.2H, Pro-B-Type Natriuretic Peptide 34, Total Protein 6.2L, Albumin 2.2L, Globulin 4.0, Albumin/Globulin Ratio 0.6L Height (Feet): 5 Height (Inches): 8.00 Weight (Pounds): 374 General Appearance: no apparent distress Respiratory/Chest: decreased breath sounds Abdomen: other - Obese Jamey Mar MD Apr 09, 2020 11:08
--- NOTE | 2020-04-09 11:27 | Surgery Progress Note ---
Surgery Progress Note Subjective Symptoms: improved, tolerating diet, passing flatus, BM Objective Last 24 Hour Vital Signs Date Time Temp Pulse Resp B/P (MAP) Pulse Ox O2 Delivery O2 Flow Rate FiO2 04/09/20 04:00 82 04/09/20 04:00 98.8 84 22 101/58 (72) 95 04/09/20 00:00 98.6 78 20 129/50 (76) 95 04/09/20 00:00 78 04/08/20 21:00 Non-Rebreather 10.0 04/08/20 20:00 100 04/08/20 20:00 97.9 99 22 113/52 (72) 93 04/08/20 16:00 97.9 70 28 127/72 (90) 92 04/08/20 16:00 92 04/08/20 12:00 96.8 89 34 119/56 (77) 99 04/08/20 12:00 87 I&O Intake and Output 04/08/20 04/09/20 19:00 07:00 Intake Total 730 ml 300 ml Output Total 200 ml 700 ml Balance 530 ml -400 ml Intake Oral 730 ml 300 ml Output Urine Total 200 ml 700 ml # Voids 6 6 # Bowel Movements 1 1 Cardiovascular: RSR Respiratory: clear, decreased breath sounds Abdomen: soft, non-tender, present bowel sounds Extremities: no edema, no tenderness, no cyanosis Laboratory Tests Test 04/08/20 11:36 04/09/20 03:30 POC Whole Blood Glucose 171 MG/DL (74-106) H White Blood Count 11.3 K/UL (4.8-10.8) H Red Blood Count 3.51 M/UL (4.70-6.10) L Hemoglobin 10.7 G/DL (14.2-18.0) L Hematocrit 29.6 % (42.0-52.0) L Mean Corpuscular Volume 84 FL (80-99) Mean Corpuscular Hemoglobin 30.6 PG (27.0-31.0) Mean Corpuscular Hemoglobin Concent 36.2 G/DL (32.0-36.0) H Red Cell Distribution Width 13.7 % (11.6-14.8) Platelet Count 424 K/UL (150-450) Mean Platelet Volume 7.2 FL (6.5-10.1) Neutrophils (%) (Auto) % (45.0-75.0) Lymphocytes (%) (Auto) % (20.0-45.0) Monocytes (%) (Auto) % (1.0-10.0) Eosinophils (%) (Auto) % (0.0-3.0) Basophils (%) (Auto) % (0.0-2.0) Differential Total Cells Counted 100 Neutrophils % (Manual) 87 % (45-75) H Lymphocytes % (Manual) 7 % (20-45) L Monocytes % (Manual) 6 % (1-10) Eosinophils % (Manual) 0 % (0-3) Basophils % (Manual) 0 % (0-2) Band Neutrophils 0 % (0-8) Platelet Estimate Adequate Platelet Morphology Normal Red Blood Cell Morphology Normal Sodium Level 137 MMOL/L (136-145) Potassium Level 3.6 MMOL/L (3.5-5.1) Chloride Level 106 MMOL/L (98-107) Carbon Dioxide Level 19 MMOL/L (21-32) L Anion Gap 12 mmol/L (5-15) Blood Urea Nitrogen 16 mg/dL (7-18) Creatinine 1.2 MG/DL (0.55-1.30) Estimat Glomerular Filtration Rate > 60 mL/min (>60) Glucose Level 138 MG/DL (74-106) H Uric Acid 4.7 MG/DL (2.6-7.2) Calcium Level 8.2 MG/DL (8.5-10.1) L Phosphorus Level 3.8 MG/DL (2.5-4.9) Magnesium Level 2.6 MG/DL (1.8-2.4) H Ferritin 1917 NG/ML (8-388) H Total Bilirubin 0.6 MG/DL (0.2-1.0) Direct Bilirubin 0.2 MG/DL (0.0-0.3) Aspartate Amino Transf (AST/SGOT) 56 U/L (15-37) H Alanine Aminotransferase (ALT/SGPT) 65 U/L (12-78) Alkaline Phosphatase 55 U/L (46-116) Lactate Dehydrogenase 1083 U/L (81-234) H Total Creatine Kinase Pending C-Reactive Protein, Quantitative 17.2 mg/dL (0.00-0.90) H Pro-B-Type Natriuretic Peptide 34 pg/mL (0-125) Total Protein 6.2 G/DL (6.4-8.2) L Albumin 2.2 G/DL (3.4-5.0) L Globulin 4.0 g/dL Albumin/Globulin Ratio 0.6 (1.0-2.7) L Plan Problems: (1) Pneumomediastinum Assessment & Plan: 29M with covid, sob, noted to have extensive air neck, face, mediastinum. no trauma. no ptx etiology unknown. no abscess. afebrile, HD Stable, labs noted ?bleb tolerating diet no pain okay for diet will monitor clinically will cont work up etiology Lungs: There is been improvement in mild patchy diffuse bilateral pneumonia. Pleural space: Unremarkable. No pneumothorax. Heart: Unremarkable. No cardiomegaly. Mediastinum: There is been resolution of pneumomediastinum. Bones/joints: Unremarkable. IMPRESSION: 1. There is been improvement in mild patchy diffuse bilateral pneumonia. 2. There is been resolution of pneumomediastinum. Gas is seen within the deep fascial planes of the neck as well as superficially. Gas is seen in the retropharyngeal space extending from the level of the adenoids into the upper mediastinum, within the vascular space surrounding the carotid sheaths, within the right parapharyngeal space, surrounding the thyroid, in the lower neck anterior to the strap muscles and also adjacent and superficial to the left sternocleidomastoid. Some gas is also seen anterior to the upper medial pectoralis major muscle on the left and in the bilateral supraclavicular fossae. No focal fluid collection to suggest abscess demonstrated. No definite tracheal or esophageal wall defect is demonstrated. Gas also extends into the mediastinum and is described in more detail on separate chest CT report There are bilateral maxillary sinus polyps versus mucous retention cysts. There is evidence of dental disease with severe caries and periodontal changes involving the left second maxillary molar. No cervical mass or adenopathy demonstrated. The salivary glands are unremarkable. The visualized lungs demonstrate extensive pulmonary parenchymal disease. This is described on separate chest CT report. Impression: Extensive gas within the fascial planes of the neck, as described. Etiology not demonstrated. No evidence of fluid collection to suggest abscess Other findings as noted, including dental disease, bilateral maxillary sinus polyps versus mucous retention cysts (2) Dehydration (3) Hypokalemia (4) Diarrhea (5) Obesity (6) AZUCENA (acute kidney injury) (7) Hypoxemic respiratory failure, chronic (8) COVID-19 Leoncio Bryant Apr 09, 2020 11:27
[2020-04-09 11:29] LABS: CREATINE KINASE 1233 U/L (26-308)
[2020-04-09 12:00] VITALS: BP 115/55
[2020-04-09 16:00] VITALS: BP 120/65
[2020-04-09] MEDS: Maintenance Dose:Remdesivir 100mg/NS 230ml x 4 Doses IV SCH ×2 (17:36)
[2020-04-09] MEDS: Enoxaparin 120 mg inj SUBQ SCH (17:40)
[2020-04-09] MEDS: Azithromycin 250 MG in D5W 275 ML IV SCH (18:12)
--- NOTE | 2020-04-09 18:13 | Infectious Diseases Prog Note ---
Assessment/Plan Assessment/Plan ASSESSMENT AND PLAN: 1. covid-19 infection, pna, , ? cap, ? gas in neck, ? pneumomediastinum - zosyn, azithromycin - day # 3 - remdesivir - day # 3/5 - dexamethasone - day # 3 - monitor labs - monitor hypoxia, clinically improved, less O2 requirement - chest x-ray - improved 2. Obesity. 3. Elevated creatinine. 4. pmh o/w negative 5. No known allergies. 6. Social history is negative. 7. Family history is noncontributory. 8. Case was discussed with RN. 9. Case was discussed with Mariela Dover, nurse practitioner for Dr. Shipley. Subjective Constitutional: Reports: fatigue; Denies: fever HEENT: Reports: congestion - less Respiratory: Reports: shortness of breath - less Cardiovascular: Denies: chest pain Gastrointestinal/Abdominal: Denies: nausea, vomiting Genitourinary: Denies: dysuria Neurologic: Denies: headache Psychiatric: Denies: depression Skin: Denies: rash Allergies: Coded Allergies: No Known Allergies (Unverified , 03/06/19) Objective Last 24 Hour Vital Signs Date Time Temp Pulse Resp B/P (MAP) Pulse Ox O2 Delivery O2 Flow Rate FiO2 04/09/20 16:00 98.6 89 20 120/65 (83) 95 04/09/20 16:00 76 04/09/20 12:00 98.1 83 22 115/55 (75) 94 04/09/20 12:00 74 04/09/20 09:00 Non-Rebreather 10.0 04/09/20 08:45 99 20 97 Room Air 04/09/20 08:00 76 04/09/20 08:00 98.1 83 22 115/57 (76) 95 04/09/20 04:00 82 04/09/20 04:00 98.8 84 22 101/58 (72) 95 04/09/20 00:00 98.6 78 20 129/50 (76) 95 04/09/20 00:00 78 04/08/20 21:00 Non-Rebreather 10.0 04/08/20 20:00 100 04/08/20 20:00 97.9 99 22 113/52 (72) 93 Height (Feet): 5 Height (Inches): 8.00 Weight (Pounds): 374 General Appearance: no acute distress HEENT: normocephalic, atraumatic, anicteric, mucous membranes moist Respiratory/Chest: no accessory muscle use, crackles/rales, rhonchi - bilaterally Cardiovascular: normal rate, regular rhythm, no gallop/murmur Abdomen: normal bowel sounds, soft, non tender, no organomegaly, non distended Genitourinary: other - no amaral Extremities: no cyanosis Skin: no rash 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 COMPARISON: 2 days prior FINDINGS: Lungs: There is been improvement in mild patchy diffuse bilateral pneumonia. Pleural space: Unremarkable. No pneumothorax. Heart: Unremarkable. No cardiomegaly. Mediastinum: There is been resolution of pneumomediastinum. Bones/joints: Unremarkable. IMPRESSION: 1. There is been improvement in mild patchy diffuse bilateral pneumonia. 2. There is been resolution of pneumomediastinum. Microbiology Date/Time Source Procedure Growth Status 04/07/20 10:30 Urine,Clean Catch Urine Culture - Final NO GROWTH AFTER 48 HOURS Complete 04/07/20 09:46 Nasal Nares Right - Final Complete 04/07/20 09:46 Nasal Nares Right - Final Complete 04/07/20 09:20 Blood Blood Culture - Preliminary NO GROWTH AFTER 24 HOURS Resulted 04/07/20 09:05 Blood Blood Culture - Preliminary NO GROWTH AFTER 24 HOURS Resulted Laboratory Tests Test 04/09/20 03:30 White Blood Count 11.3 K/UL (4.8-10.8) H Red Blood Count 3.51 M/UL (4.70-6.10) L Hemoglobin 10.7 G/DL (14.2-18.0) L Hematocrit 29.6 % (42.0-52.0) L Mean Corpuscular Volume 84 FL (80-99) Mean Corpuscular Hemoglobin 30.6 PG (27.0-31.0) Mean Corpuscular Hemoglobin Concent 36.2 G/DL (32.0-36.0) H Red Cell Distribution Width 13.7 % (11.6-14.8) Platelet Count 424 K/UL (150-450) Mean Platelet Volume 7.2 FL (6.5-10.1) Neutrophils (%) (Auto) % (45.0-75.0) Lymphocytes (%) (Auto) % (20.0-45.0) Monocytes (%) (Auto) % (1.0-10.0) Eosinophils (%) (Auto) % (0.0-3.0) Basophils (%) (Auto) % (0.0-2.0) Differential Total Cells Counted 100 Neutrophils % (Manual) 87 % (45-75) H Lymphocytes % (Manual) 7 % (20-45) L Monocytes % (Manual) 6 % (1-10) Eosinophils % (Manual) 0 % (0-3) Basophils % (Manual) 0 % (0-2) Band Neutrophils 0 % (0-8) Platelet Estimate Adequate Platelet Morphology Normal Red Blood Cell Morphology Normal Sodium Level 137 MMOL/L (136-145) Potassium Level 3.6 MMOL/L (3.5-5.1) Chloride Level 106 MMOL/L (98-107) Carbon Dioxide Level 19 MMOL/L (21-32) L Anion Gap 12 mmol/L (5-15) Blood Urea Nitrogen 16 mg/dL (7-18) Creatinine 1.2 MG/DL (0.55-1.30) Estimat Glomerular Filtration Rate > 60 mL/min (>60) Glucose Level 138 MG/DL (74-106) H Uric Acid 4.7 MG/DL (2.6-7.2) Calcium Level 8.2 MG/DL (8.5-10.1) L Phosphorus Level 3.8 MG/DL (2.5-4.9) Magnesium Level 2.6 MG/DL (1.8-2.4) H Ferritin 1917 NG/ML (8-388) H Total Bilirubin 0.6 MG/DL (0.2-1.0) Direct Bilirubin 0.2 MG/DL (0.0-0.3) Aspartate Amino Transf (AST/SGOT) 56 U/L (15-37) H Alanine Aminotransferase (ALT/SGPT) 65 U/L (12-78) Alkaline Phosphatase 55 U/L (46-116) Lactate Dehydrogenase 1083 U/L (81-234) H Total Creatine Kinase 1233 U/L (26-308) H C-Reactive Protein, Quantitative 17.2 mg/dL (0.00-0.90) H Pro-B-Type Natriuretic Peptide 34 pg/mL (0-125) Total Protein 6.2 G/DL (6.4-8.2) L Albumin 2.2 G/DL (3.4-5.0) L Globulin 4.0 g/dL Albumin/Globulin Ratio 0.6 (1.0-2.7) L Current Medications Medications (Trade) Dose Ordered Sig/Bernard Route PRN Reason Start Time Stop Time Status Last Admin Dose Admin Albuterol Sulfate (Proventil MDI) 2 puff Q4H PRN INH Shortness of Breath 04/07/20 12:00 07/06/20 11:59 Ascorbic Acid (Vitamin C) 500 mg TWICE A DAY ORAL 04/07/20 18:00 05/07/20 17:59 04/09/20 09:03 Azithromycin 250 mg/Dextrose 275 ml @ 275 mls/hr Q24HRS IV 04/08/20 18:00 04/13/20 17:59 04/08/20 18:13 Dexamethasone Sodium Phosphate (Decadron 10mg/ ml Inj) 6 mg DAILY IV 04/08/20 09:00 04/17/20 09:01 04/09/20 09:02 Docusate Sodium (Colace) 100 mg TWICE A DAY ORAL 04/07/20 18:00 05/07/20 17:59 04/09/20 09:03 Enoxaparin Sodium (Lovenox) 120 mg Q24H SUBQ 04/07/20 17:00 07/06/20 16:59 04/09/20 17:40 Pantoprazole (Protonix) 40 mg DAILY ORAL 04/08/20 09:00 05/08/20 08:59 04/09/20 09:02 Piperacillin Sod/ Tazobactam Sod 3.375 gm/Dextrose 110 ml @ 27.5 mls/hr EVERY 8 HOURS IVPB 04/07/20 22:00 04/12/20 21:59 04/09/20 13:06 Potassium Chloride/Sodium Chloride 1,000 ml @ 100 mls/hr Q10H IV 04/07/20 13:00 05/07/20 12:59 04/09/20 16:22 Potassium Chloride (K-Dur) 40 meq TID ORAL 04/08/20 09:45 07/07/20 09:44 04/09/20 13:06 Remdesivir 100 mg/ Sodium Chloride 250 ml @ 250 mls/hr Q24H IV 04/08/20 17:00 04/11/20 17:59 04/09/20 17:36 Zinc Sulfate (Zinc Sulfate) 220 mg DAILY ORAL 04/07/20 12:15 07/06/20 12:14 04/09/20 09:03 Dennis Foy MD Apr 09, 2020 18:13
--- NOTE | 2020-04-09 19:30 | NUR ---
NURSE NOTES: Pt received from WILLIAM Whitaker. Pt is resting comfortably in bed and denies any pain. Pt is A/Ox4 and ambulatory; pt voids independently. Pt has cardiac monitoring SR and asymptomatic. Pt has non-rebreather 10LPM and breathing unlabored. Pt has LFA 22G running 1/2NS+20mEq 100ml/hr patent with skin dry and intact. Bed is locked in lowest position with call light within reach. Will continue to monitor.
[2020-04-09 20:00] VITALS: BP 117/63
--- NOTE | 2020-04-09 20:01 | NUR ---
NURSE HAND-OFF REPORT: Important Events on Shift: Continue ATB and weaning off O2 Patient Status: Stable Diet: Regular Pending Orders: Pending Results/Labs: Pending MD notification: Latest Vital Signs: Temperature 98.6 , Pulse 76 , B/P 120 /65 , Respiratory Rate 20 , O2 SAT 95 , Non-Rebreather, O2 Flow Rate 10.0 . Vital Sign Comment: EKG Rhythm: Sinus Rhythm Rhythm change?: N MD Notified?: N - MD Response: Latest Nunez Fall Score: 20 Fall Risk: Low Risk Safety Measures: Call light Within Reach, Bed Alarm Zone 2, Side Rails Side Rails x2, Bed position Low and Locked. Fall Precautions: Patient Fall Education Report given to Garrett.
[2020-04-10] VITALS: BP 121/64
[2020-04-10] MEDS: NS w/KCl 20mEq 1000ml 1,000 ML IV SCH ×2 (01:29→12:16)
[2020-04-10 04:00] VITALS: BP 123/70
[2020-04-10 05:20] LABS: HEMATOCRIT 33.3 % (42.0-52.0); MEAN CORPUSCULAR VOLUME 86 FL (80-99); PLATELET COUNT 479 K/UL (150-450); RED BLOOD COUNT 3.89 M/UL (4.70-6.10); RED CELL DISTRIBUTION WIDTH 13.6 % (11.6-14.8); WHITE BLOOD COUNT 9.4 K/UL (4.8-10.8)
[2020-04-10 05:42] LABS: ALANINE AMINOTRANSFERASE 55 U/L (12-78); ALBUMIN 2.2 G/DL (3.4-5.0); ALBUMIN/GLOBULIN RATIO 0.6 (1.0-2.7); ALKALINE PHOSPHATASE 49 U/L (46-116); ANION GAP 11 mmol/L (5-15); ASPARTATE AMINO TRANSFERASE 38 U/L (15-37); BILIRUBIN,DIRECT 0.2 MG/DL (0.0-0.3); BILIRUBIN,TOTAL 0.5 MG/DL (0.2-1.0); BLOOD UREA NITROGEN 15 mg/dL (7-18); CALCIUM 8.4 MG/DL (8.5-10.1); CARBON DIOXIDE 22 MMOL/L (21-32); CHLORIDE 107 MMOL/L (98-107); CREATININE 1.2 MG/DL (0.55-1.30); POTASSIUM 3.6 MMOL/L (3.5-5.1); SODIUM 140 MMOL/L (136-145)
[2020-04-10] MEDS: Piperacillin/Tazobactam 3.375 GM in D5W 110 ML IVPB SCH ×3 (05:55→21:47)
--- NOTE | 2020-04-10 07:08 | NUR ---
NURSE NOTES: Patient received from WILLIAM Tucker. Patient A/O x4 and verbally responsive. No SOB or acute distress noted. No pain noted. Saturating well on 10L of oxygen via Non rebreather mask saturating @ 96%. IV site patent and intact on Right FA 22G. All needs attended too. And assisted with bathroom needs. Bed in lowest position and locked. Call light and bedside table within reach. Will continue plan of care.
--- NOTE | 2020-04-10 07:12 | NUR ---
NURSE HAND-OFF REPORT: Important Events on Shift:Pt continued scheduled medications Patient Status: Stable Diet: Cardiac Diet Pending Orders: Pending Results/Labs:AM Labs Pending MD notification: Latest Vital Signs: Temperature 97.0 , Pulse 84 , B/P 123 /70 , Respiratory Rate 22 , O2 SAT 98 , Non-Rebreather, O2 Flow Rate 10.0 . Vital Sign Comment: VSS EKG Rhythm: Sinus Rhythm Rhythm change?: N MD Notified?: N - MD Response: Latest Nunez Fall Score: 20 Fall Risk: Low Risk Safety Measures: Call light Within Reach, Bed Alarm Zone 2, Side Rails Side Rails x2, Bed position Low and Locked. Fall Precautions: Patient Fall Education Report given to WILLIAM Whitaker.
[2020-04-10 08:00] VITALS: BP 118/63
[2020-04-10] MEDS: Docusate 100mg cap ORAL SCH ×2 (08:25→17:56)
[2020-04-10] MEDS: dexAMETHasone 10mg/ml Inj IV SCH (08:26)
[2020-04-10] MEDS: Zinc Sulfate 220mg ORAL SCH (08:26)
[2020-04-10] MEDS: Ascorbic Acid 500mg tab ORAL SCH ×2 (08:26→17:56)
--- NOTE | 2020-04-10 10:04 | Nephrology Progress Note ---
Assessment/Plan Problem List: (1) AZUCENA (acute kidney injury) (2) Hypokalemia (3) Dehydration (4) Diarrhea (5) Obesity (6) Hypoxemic respiratory failure, chronic (7) COVID-19 Assessment Acute hypoxemic respiratory failure requiring cardioversion nonrebreather mask COVID pneumonia Morbid obesity Electrolyte imbalance: hypo Na, hypo K, hypo Mg Elevated LFT Elevated CK, possible rhabdo AZUCENA Plan April 10: Labs reviewed. Electrolytes within normal range. Continue per consultants. Not much to add from renal standpoint of view. April 09: Labs reviewed. Stable from renal standpoint of view. Continue per PMD and consultants. April 08: Labs reviewed. Serum sodium improved. Low potassium replaced. Serum creatinine lowered. Meds reviewed. Receiving treatment for COVID-19. Continue to monitor renal parameters and electrolytes. Subjective ROS Limited/Unobtainable: No Objective Objective Last 24 Hour Vital Signs Date Time Temp Pulse Resp B/P (MAP) Pulse Ox O2 Delivery O2 Flow Rate FiO2 04/10/20 07:41 Non-Rebreather 10.0 04/10/20 04:00 97.0 84 22 123/70 (87) 98 04/10/20 04:00 60 04/10/20 00:00 80 04/10/20 00:00 97.3 85 20 121/64 (83) 94 04/09/20 21:00 Non-Rebreather 10.0 04/09/20 20:00 97.2 98 22 117/63 (81) 98 04/09/20 20:00 80 04/09/20 16:00 98.6 89 20 120/65 (83) 95 04/09/20 16:00 76 04/09/20 12:00 98.1 83 22 115/55 (75) 94 04/09/20 12:00 74 Intake and Output 04/09/20 04/10/20 19:00 07:00 Intake Total 360 ml Output Total 850 ml Balance -490 ml Intake Oral 360 ml Output Urine Total 850 ml # Voids 4 # Bowel Movements 1 2 Current Medications Medications (Trade) Dose Ordered Sig/Bernard Route PRN Reason Start Time Stop Time Status Last Admin Dose Admin Albuterol Sulfate (Proventil MDI) 2 puff Q4H PRN INH Shortness of Breath 04/07/20 12:00 07/06/20 11:59 Ascorbic Acid (Vitamin C) 500 mg TWICE A DAY ORAL 04/07/20 18:00 05/07/20 17:59 04/10/20 08:26 Azithromycin 250 mg/Dextrose 275 ml @ 275 mls/hr Q24HRS IV 04/08/20 18:00 04/13/20 17:59 04/09/20 18:12 Dexamethasone Sodium Phosphate (Decadron 10mg/ ml Inj) 6 mg DAILY IV 04/08/20 09:00 04/17/20 09:01 04/10/20 08:26 Docusate Sodium (Colace) 100 mg TWICE A DAY ORAL 04/07/20 18:00 05/07/20 17:59 04/10/20 08:25 Enoxaparin Sodium (Lovenox) 120 mg Q24H SUBQ 04/07/20 17:00 07/06/20 16:59 04/09/20 17:40 Pantoprazole (Protonix) 40 mg DAILY ORAL 04/08/20 09:00 05/08/20 08:59 04/10/20 08:26 Piperacillin Sod/ Tazobactam Sod 3.375 gm/Dextrose 110 ml @ 27.5 mls/hr EVERY 8 HOURS IVPB 04/07/20 22:00 04/12/20 21:59 04/10/20 05:55 Potassium Chloride/Sodium Chloride 1,000 ml @ 100 mls/hr Q10H IV 04/07/20 13:00 05/07/20 12:59 04/10/20 01:29 Potassium Chloride (K-Dur) 40 meq TID ORAL 04/08/20 09:45 07/07/20 09:44 04/10/20 08:25 Remdesivir 100 mg/ Sodium Chloride 250 ml @ 250 mls/hr Q24H IV 04/08/20 17:00 04/11/20 17:59 04/09/20 17:36 Zinc Sulfate (Zinc Sulfate) 220 mg DAILY ORAL 04/07/20 12:15 07/06/20 12:14 04/10/20 08:26 Laboratory Tests 04/10/20 04:00: White Blood Count 9.4, Red Blood Count 3.89L, Hemoglobin 12.0L, Hematocrit 33.3L , Mean Corpuscular Volume 86, Mean Corpuscular Hemoglobin 30.9, Mean Corpuscular Hemoglobin Concent 36.1H, Red Cell Distribution Width 13.6, Platelet Count 479H, Mean Platelet Volume 6.8, Neutrophils (%) (Auto) , Lymphocytes (%) (Auto) , Monocytes (%) (Auto) , Eosinophils (%) (Auto) , Basophils (%) (Auto) , Differential Total Cells Counted 100, Neutrophils % (Manual) 83H, Lymphocytes % (Manual) 10L, Monocytes % (Manual) 7, Eosinophils % (Manual) 0, Basophils % (Manual) 0, Band Neutrophils 0, Platelet Estimate IncreasedH, Platelet Morphology Normal, Hypochromasia 1+, Sodium Level 140, Potassium Level 3.6, Chloride Level 107, Carbon Dioxide Level 22, Anion Gap 11, Blood Urea Nitrogen 15, Creatinine 1.2, Estimat Glomerular Filtration Rate > 60, Glucose Level 151H, Calcium Level 8.4L, Total Bilirubin 0.5, Direct Bilirubin 0.2, Aspartate Amino Transf (AST/SGOT) 38H, Alanine Aminotransferase (ALT/SGPT) 55, Alkaline Phospha tase 49, C-Reactive Protein, Quantitative 6.8H, Total Protein 5.9L, Albumin 2.2L , Globulin 3.7, Albumin/Globulin Ratio 0.6L Height (Feet): 5 Height (Inches): 8.00 Weight (Pounds): 374 General Appearance: no apparent distress Cardiovascular: normal rate Respiratory/Chest: decreased breath sounds Abdomen: soft, distended Jamey Mar MD Apr 10, 2020 10:04
--- NOTE | 2020-04-10 10:23 | NUR ---
CASE MANAGEMENT:REVIEW 04/10/20 SI: COVID PNA 97.0 60 22 123/70 98% ON 10L NRB IS: IV REMDESIVIR Q24 IV DECADRON QD LOVENOX SQ Q24 IV AZITHROMYCIN Q24 IV ZOSYN Q8HRS : TELEMETRY STATUS DCP: FROM HOME
--- NOTE | 2020-04-10 10:32 | Pulmonology Progress Note ---
Subjective ROS Limited/Unobtainable: No Constitutional: Reports: fatigue; Denies: fever Gastrointestinal/Abdominal: Denies: nausea, vomiting Psychiatric: Denies: depression Skin: Denies: rash Allergies: Coded Allergies: No Known Allergies (Unverified , 03/06/19) Subjective still on 100% NRM , unable to wean no resp distress no fevers, denies chest pain CXR 04/09 better, pneumomediastinum resolved CRP with trend down creat down to normal Objective Last 24 Hour Vital Signs Date Time Temp Pulse Resp B/P (MAP) Pulse Ox O2 Delivery O2 Flow Rate FiO2 04/10/20 07:41 Non-Rebreather 10.0 04/10/20 04:00 97.0 84 22 123/70 (87) 98 04/10/20 04:00 60 04/10/20 00:00 80 04/10/20 00:00 97.3 85 20 121/64 (83) 94 04/09/20 21:00 Non-Rebreather 10.0 04/09/20 20:00 97.2 98 22 117/63 (81) 98 04/09/20 20:00 80 04/09/20 16:00 98.6 89 20 120/65 (83) 95 04/09/20 16:00 76 04/09/20 12:00 98.1 83 22 115/55 (75) 94 04/09/20 12:00 74 Intake and Output 04/09/20 04/10/20 19:00 07:00 Intake Total 360 ml Output Total 850 ml Balance -490 ml Intake Oral 360 ml Output Urine Total 850 ml # Voids 4 # Bowel Movements 1 2 Objective General Appearance: young obese male on 100% NRM, in NAD Lines, tubes and drains: peripheral HEENT: normocephalic, atraumatic, anicteric, PERRL Neck: non-tender, supple Respiratory/Chest: + accessory muscle use, few scattered rhonchi BL Cardiovascular/Chest: normal rate, regular rhythm Abdomen: normal bowel sounds, non tender, soft, obese Extremities: normal range of motion, non-tender, no calf tenderness, normal capillary refill Skin Exam: warm/dry 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, no motor/sensory deficits, alert, oriented x 3, responsive Musculoskeletal: normal muscle bulk Microbiology Date/Time Source Procedure Growth Status 04/07/20 10:30 Urine,Clean Catch Urine Culture - Final NO GROWTH AFTER 48 HOURS Complete Laboratory Tests 04/10/20 04:00: White Blood Count 9.4, Red Blood Count 3.89L, Hemoglobin 12.0L, Hematocrit 33.3L , Mean Corpuscular Volume 86, Mean Corpuscular Hemoglobin 30.9, Mean Corpuscular Hemoglobin Concent 36.1H, Red Cell Distribution Width 13.6, Platelet Count 479H, Mean Platelet Volume 6.8, Neutrophils (%) (Auto) , Lymphocytes (%) (Auto) , Monocytes (%) (Auto) , Eosinophils (%) (Auto) , Basophils (%) (Auto) , Differential Total Cells Counted 100, Neutrophils % (Manual) 83H, Lymphocytes % (Manual) 10L, Monocytes % (Manual) 7, Eosinophils % (Manual) 0, Basophils % (Manual) 0, Band Neutrophils 0, Platelet Estimate IncreasedH, Platelet Morphology Normal, Hypochromasia 1+, Sodium Level 140, Potassium Level 3.6, Chloride Level 107, Carbon Dioxide Level 22, Anion Gap 11, Blood Urea Nitrogen 15, Creatinine 1.2, Estimat Glomerular Filtration Rate > 60, Glucose Level 151H, Calcium Level 8.4L, Total Bilirubin 0.5, Direct Bilirubin 0.2, Aspartate Amino Transf (AST/SGOT) 38H, Alanine Aminotransferase (ALT/SGPT) 55, Alkaline Phosphatase 49, C-Reactive Protein, Quantitative 6.8H, Total Protein 5.9L, Albumin 2.2L, Globulin 3.7, Albumin/Globulin Ratio 0.6L Current Medications Medications (Trade) Dose Ordered Sig/Bernard Route PRN Reason Start Time Stop Time Status Last Admin Dose Admin Albuterol Sulfate (Proventil MDI) 2 puff Q4H PRN INH Shortness of Breath 04/07/20 12:00 07/06/20 11:59 Ascorbic Acid (Vitamin C) 500 mg TWICE A DAY ORAL 04/07/20 18:00 05/07/20 17:59 04/10/20 08:26 Azithromycin 250 mg/Dextrose 275 ml @ 275 mls/hr Q24HRS IV 04/08/20 18:00 04/13/20 17:59 04/09/20 18:12 Dexamethasone Sodium Phosphate (Decadron 10mg/ ml Inj) 6 mg DAILY IV 04/08/20 09:00 04/17/20 09:01 04/10/20 08:26 Docusate Sodium (Colace) 100 mg TWICE A DAY ORAL 04/07/20 18:00 05/07/20 17:59 04/10/20 08:25 Enoxaparin Sodium (Lovenox) 120 mg Q24H SUBQ 04/07/20 17:00 07/06/20 16:59 04/09/20 17:40 Pantoprazole (Protonix) 40 mg DAILY ORAL 04/08/20 09:00 05/08/20 08:59 04/10/20 08:26 Piperacillin Sod/ Tazobactam Sod 3.375 gm/Dextrose 110 ml @ 27.5 mls/hr EVERY 8 HOURS IVPB 04/07/20 22:00 04/12/20 21:59 04/10/20 05:55 Potassium Chloride/Sodium Chloride 1,000 ml @ 100 mls/hr Q10H IV 04/07/20 13:00 05/07/20 12:59 04/10/20 01:29 Potassium Chloride (K-Dur) 40 meq TID ORAL 04/08/20 09:45 07/07/20 09:44 04/10/20 08:25 Remdesivir 100 mg/ Sodium Chloride 250 ml @ 250 mls/hr Q24H IV 04/08/20 17:00 04/11/20 17:59 04/09/20 17:36 Zinc Sulfate (Zinc Sulfate) 220 mg DAILY ORAL 04/07/20 12:15 07/06/20 12:14 04/10/20 08:26 Assessment/Plan Assessment/Plan ASSESSMENT Acute hypoxemic respiratory failure requiring nonrebreather mask COVID pneumonia Pneumomediastinum, - likely due to coughing, no PTX -resolved Morbid obesity Electrolyte imbalance: hypo Na, hypo K, hypo Mg Elevated LFT Elevated CK, possible rhabdo AZUCENA -resolved PLAN OF CARE tele O2 titrate to keep sat above 92% ; unable to wean from NPM change to high flow O2 and titrate as tolerated prone position as much as possible MDI Albuterol prn closely monitor oxygenation, steroids [id number], remdesivvir x 5 days abx as per ID recs fup CXR 04/09 -> improvement in mild patchy diffuse bilateral pneumonia. Resolution of pneumomediastinum. fup inflammatory markers:initial: ferritin > 2000, CRP 36,8, D dimer 2.01, LDH 1495-, IL 6 pending - CRP with trend down, ferritin with small trend down a/c with Lovenox/prophylaxis dose vit C and zinc initial CXR ->Bilateral infiltrates, suspicious for bilateral pneumonia, quite possibly Evidence of soft tissue gas within the fascial planes of the neck as well as soft tissue gas within the left supraclavicular fossa CT chest-> Bilateral diffuse and extensive infiltrates, most likely due to pneumonia, Pneumomediastinum. No evidence of pneumothorax now on fup CXR 04/[address] neck -> Extensive gas within the fascial planes of the neck, as described. Etiology not demonstrated. No evidence of fluid collection to suggest abscess Other findings included dental disease, bilateral maxillary sinus polyps versus mucous retention cysts IVF nephro eval appreciated monitor renal parameters, LFT, CK trending down, AST and total bili down [id number] prediabetes., no concentrated sweets diet lipid panel stable supportive care case discussed and evaluated by supervising physician Mariela Dover NP Apr 10, 2020 10:32
--- NOTE | 2020-04-10 10:50 | NUR ---
RESPIRATORY NOTES PT titrated from NRB to venturi mask - 14L, 55%. PT does not complain of any respiratory distress - SaO2 94%. WILLIAM Whitaker aware. Will continue to monitor.
--- NOTE | 2020-04-10 11:00 | NUR ---
NURSE NOTES: Was informed by RT that pt tolerated ventri mask 14L with 55% FIO2 with saturation of 95%. Will continue to monitor.
[2020-04-10 12:00] VITALS: BP 122/73
--- NOTE | 2020-04-10 13:50 | Surgery Progress Note ---
Surgery Progress Note Subjective Symptoms: improved, tolerating diet, voiding well, passing flatus, BM Objective Last 24 Hour Vital Signs Date Time Temp Pulse Resp B/P (MAP) Pulse Ox O2 Delivery O2 Flow Rate FiO2 04/10/20 08:00 97.3 86 21 118/63 (81) 97 04/10/20 08:00 74 04/10/20 07:41 Non-Rebreather 10.0 04/10/20 07:00 66 20 98 Non-Rebreather 15.0 100 04/10/20 04:00 97.0 84 22 123/70 (87) 98 04/10/20 04:00 60 04/10/20 00:00 80 04/10/20 00:00 97.3 85 20 121/64 (83) 94 04/09/20 21:00 Non-Rebreather 10.0 04/09/20 20:00 97.2 98 22 117/63 (81) 98 04/09/20 20:00 80 04/09/20 16:00 98.6 89 20 120/65 (83) 95 04/09/20 16:00 76 I&O Intake and Output 04/09/20 04/10/20 19:00 07:00 Intake Total 360 ml Output Total 850 ml Balance -490 ml Intake Oral 360 ml Output Urine Total 850 ml # Voids 4 # Bowel Movements 1 2 Cardiovascular: RSR Respiratory: clear, decreased breath sounds Abdomen: soft, non-tender, present bowel sounds Extremities: no edema, no tenderness, no cyanosis Laboratory Tests Test 04/10/20 04:00 White Blood Count 9.4 K/UL (4.8-10.8) Red Blood Count 3.89 M/UL (4.70-6.10) L Hemoglobin 12.0 G/DL (14.2-18.0) L Hematocrit 33.3 % (42.0-52.0) L Mean Corpuscular Volume 86 FL (80-99) Mean Corpuscular Hemoglobin 30.9 PG (27.0-31.0) Mean Corpuscular Hemoglobin Concent 36.1 G/DL (32.0-36.0) H Red Cell Distribution Width 13.6 % (11.6-14.8) Platelet Count 479 K/UL (150-450) H Mean Platelet Volume 6.8 FL (6.5-10.1) Neutrophils (%) (Auto) % (45.0-75.0) Lymphocytes (%) (Auto) % (20.0-45.0) Monocytes (%) (Auto) % (1.0-10.0) Eosinophils (%) (Auto) % (0.0-3.0) Basophils (%) (Auto) % (0.0-2.0) Differential Total Cells Counted 100 Neutrophils % (Manual) 83 % (45-75) H Lymphocytes % (Manual) 10 % (20-45) L Monocytes % (Manual) 7 % (1-10) Eosinophils % (Manual) 0 % (0-3) Basophils % (Manual) 0 % (0-2) Band Neutrophils 0 % (0-8) Platelet Estimate Increased H Platelet Morphology Normal Hypochromasia 1+ Sodium Level 140 MMOL/L (136-145) Potassium Level 3.6 MMOL/L (3.5-5.1) Chloride Level 107 MMOL/L (98-107) Carbon Dioxide Level 22 MMOL/L (21-32) Anion Gap 11 mmol/L (5-15) Blood Urea Nitrogen 15 mg/dL (7-18) Creatinine 1.2 MG/DL (0.55-1.30) Estimat Glomerular Filtration Rate > 60 mL/min (>60) Glucose Level 151 MG/DL (74-106) H Calcium Level 8.4 MG/DL (8.5-10.1) L Total Bilirubin 0.5 MG/DL (0.2-1.0) Direct Bilirubin 0.2 MG/DL (0.0-0.3) Aspartate Amino Transf (AST/SGOT) 38 U/L (15-37) H Alanine Aminotransferase (ALT/SGPT) 55 U/L (12-78) Alkaline Phosphatase 49 U/L (46-116) C-Reactive Protein, Quantitative 6.8 mg/dL (0.00-0.90) H Total Protein 5.9 G/DL (6.4-8.2) L Albumin 2.2 G/DL (3.4-5.0) L Globulin 3.7 g/dL Albumin/Globulin Ratio 0.6 (1.0-2.7) L Plan Problems: (1) Pneumomediastinum Assessment & Plan: 29M with covid, sob, noted to have extensive air neck, face, mediastinum. no trauma. no ptx etiology unknown. no abscess. afebrile, HD Stable, labs noted ?bleb tolerating diet no pain okay for diet will monitor clinically will cont work up etiology Lungs: There is been improvement in mild patchy diffuse bilateral pneumonia. Pleural space: Unremarkable. No pneumothorax. Heart: Unremarkable. No cardiomegaly. Mediastinum: There is been resolution of pneumomediastinum. Bones/joints: Unremarkable. IMPRESSION: 1. There is been improvement in mild patchy diffuse bilateral pneumonia. 2. There is been resolution of pneumomediastinum. Gas is seen within the deep fascial planes of the neck as well as superficially. Gas is seen in the retropharyngeal space extending from the level of the adenoids into the upper mediastinum, within the vascular space surrounding the carotid sheaths, within the right parapharyngeal space, surrounding the thyroid, in the lower neck anterior to the strap muscles and also adjacent and superficial to the left sternocleidomastoid. Some gas is also seen anterior to the upper medial pectoralis major muscle on the left and in the bilateral supraclavicular fossae. No focal fluid collection to suggest abscess demonstrated. No definite tracheal or esophageal wall defect is demonstrated. Gas also extends into the mediastinum and is described in more detail on separate chest CT report There are bilateral maxillary sinus polyps versus mucous retention cysts. There is evidence of dental disease with severe caries and periodontal changes involving the left second maxillary molar. No cervical mass or adenopathy demonstrated. The salivary glands are unremarkable. The visualized lungs demonstrate extensive pulmonary parenchymal disease. This is described on separate chest CT report. Impression: Extensive gas within the fascial planes of the neck, as described. Etiology not demonstrated. No evidence of fluid collection to suggest abscess Other findings as noted, including dental disease, bilateral maxillary sinus polyps versus mucous retention cysts (2) Dehydration (3) Hypokalemia (4) Diarrhea (5) Obesity (6) AZUCENA (acute kidney injury) (7) Hypoxemic respiratory failure, chronic (8) COVID-19 ZoltanChaim hobsonya Apr 10, 2020 13:50
[2020-04-10 16:00] VITALS: BP 126/64
[2020-04-10] MEDS: Maintenance Dose:Remdesivir 100mg/NS 230ml x 4 Doses IV SCH ×2 (17:50)
[2020-04-10] MEDS: Azithromycin 250 MG in D5W 275 ML IV SCH (17:56)
[2020-04-10] MEDS: Enoxaparin 120 mg inj SUBQ SCH (17:57)
--- NOTE | 2020-04-10 19:55 | NUR ---
NURSE HAND-OFF REPORT: Important Events on Shift: Pt weaned down to Ventri Mask 14L 55% FIO2 Patient Status: Stable Diet: CCHO Low Pending Orders: Pending Results/Labs: Pending MD notification: Latest Vital Signs: Temperature 98.5 , Pulse 70 , B/P 126 /64 , Respiratory Rate 20 , O2 SAT 97 , Non-Rebreather, O2 Flow Rate 15.0 . Vital Sign Comment: EKG Rhythm: Sinus Rhythm Rhythm change?: N MD Notified?: N - MD Response: Latest Nunez Fall Score: 20 Fall Risk: Low Risk Safety Measures: Call light Within Reach, Bed Alarm Zone 2, Side Rails Side Rails x2, Bed position Low and Locked. Fall Precautions: Patient Fall Education Report given to Evelyn.
--- NOTE | 2020-04-10 19:56 | NUR ---
NURSE NOTES: Received pt AOX4; Noted comfortable in bed; COVID + on venturi mask 14L, 55%; in no acute distress; IV site on L forearm 22 gauge; will reassess site d/t pt complaining of pain; call light within reach; bed locked and in low position; side rails x 2; will continue to monitor.
[2020-04-10 20:00] VITALS: BP 130/86
[2020-04-11] VITALS: BP 124/67
[2020-04-11 04:00] VITALS: BP 105/58
[2020-04-11] MEDS: Piperacillin/Tazobactam 3.375 GM in D5W 110 ML IVPB SCH ×3 (06:40→21:46)
[2020-04-11] MEDS: NS w/KCl 20mEq 1000ml 1,000 ML IV SCH (06:41)
[2020-04-11 06:55] LABS: ALANINE AMINOTRANSFERASE 60 U/L (12-78); ALBUMIN 2.1 G/DL (3.4-5.0); ALBUMIN/GLOBULIN RATIO 0.6 (1.0-2.7); ALKALINE PHOSPHATASE 49 U/L (46-116); ANION GAP 8 mmol/L (5-15); ASPARTATE AMINO TRANSFERASE 34 U/L (15-37); BILIRUBIN,DIRECT 0.2 MG/DL (0.0-0.3); BILIRUBIN,TOTAL 0.4 MG/DL (0.2-1.0); BLOOD UREA NITROGEN 12 mg/dL (7-18); CARBON DIOXIDE 25 MMOL/L (21-32); CHLORIDE 110 MMOL/L (98-107); CREATININE 1.1 MG/DL (0.55-1.30); FERRITIN 900 NG/ML (8-388); POTASSIUM 3.8 MMOL/L (3.5-5.1); SODIUM 143 MMOL/L (136-145)
--- NOTE | 2020-04-11 07:00 | NUR ---
NURSE NOTES: Patient was seen in bed asleep in low fowlers position, The patient was receiving supplemental oxygen via venturi mask of 14L of O2 at 55%. The bed was in the lowest position and locked, the side rails were placed x2 and bed alarm was set to zone 2 with call light in reach.
--- NOTE | 2020-04-11 07:15 | NUR ---
NURSE HAND-OFF REPORT: Important Events on Shift: On venturi mask 14L, FiO2 55%, tolerating well; per NADEEM Dover, ok to titrate down O2 as tolertated to keep O2 sat >92%; new PIV site L wrist Patient Status: stable Diet: cardiac Pending Orders: N Pending Results/Labs: morning labs Pending MD notification: N Latest Vital Signs: Temperature 97.5 , Pulse 76 , B/P 105 /58 , Respiratory Rate 20 , O2 SAT 98 , Venturi Mask, O2 Flow Rate 14.0 . Vital Sign Comment: stable EKG Rhythm: Sinus Rhythm Rhythm change?: N MD Notified?: N - MD Response: Latest Nunez Fall Score: 20 Fall Risk: Low Risk Safety Measures: Call light Within Reach, Bed Alarm Zone 2, Side Rails Side Rails x2, Bed position Low and Locked. Fall Precautions: Patient Fall Education Report given to WILLIAM Warren[].
[2020-04-11 07:46] LABS: BASOPHILS % (AUTO) 0.4 % (0.0-2.0); HEMATOCRIT 33.6 % (42.0-52.0); HEMOGLOBIN 11.9 G/DL (14.2-18.0); LYMPHOCYTES % (AUTO) 11.8 % (20.0-45.0); MEAN CORPUSCULAR VOLUME 85 FL (80-99); MONOCYTES % (AUTO) 5.8 % (1.0-10.0); PLATELET COUNT 530 K/UL (150-450); RED BLOOD COUNT 3.98 M/UL (4.70-6.10); RED CELL DISTRIBUTION WIDTH 14.2 % (11.6-14.8); WHITE BLOOD COUNT 10.3 K/UL (4.8-10.8)
[2020-04-11 08:00] VITALS: BP 110/60
--- NOTE | 2020-04-11 08:02 | Pulmonology Progress Note ---
Subjective ROS Limited/Unobtainable: No Constitutional: Reports: fatigue; Denies: fever Gastrointestinal/Abdominal: Denies: nausea, vomiting Psychiatric: Denies: depression Skin: Denies: rash Allergies: Coded Allergies: No Known Allergies (Unverified , 03/06/19) Subjective weaned to VM 14 l/min no fevers, denies chest pain CXR 04/09 better, pneumomediastinum resolved able to ambulate to bathroom yesterday without supplemental oxygen for a short time maintained prone position yesterday but for a short time Objective Last 24 Hour Vital Signs Date Time Temp Pulse Resp B/P (MAP) Pulse Ox O2 Delivery O2 Flow Rate FiO2 04/11/20 04:00 97.5 78 20 105/58 (74) 98 04/11/20 04:00 76 04/11/20 00:00 97.3 81 20 124/67 (86) 94 04/11/20 00:00 83 04/10/20 21:00 Venturi Mask 14.0 04/10/20 20:00 97.5 84 22 130/86 (101) 94 04/10/20 20:00 87 04/10/20 19:15 70 20 97 Non-Rebreather 15.0 100 04/10/20 16:00 81 04/10/20 16:00 98.5 82 21 126/64 (84) 97 04/10/20 12:00 85 04/10/20 12:00 98.8 81 22 122/73 (89) 98 04/10/20 08:00 97.3 86 21 118/63 (81) 97 04/10/20 08:00 74 Intake and Output 04/10/20 04/11/20 19:00 07:00 Intake Total 1420 ml 480 ml Output Total 600 ml Balance 1420 ml -120 ml Intake Oral 1420 ml 480 ml Output Urine Total 600 ml # Voids 4 2 Objective General Appearance: young obese male on VM 14 L/min in NAD Lines, tubes and drains: peripheral HEENT: normocephalic, atraumatic, anicteric, PERRL Neck: non-tender, supple Respiratory/Chest: + accessory muscle use, few scattered rhonchi BL Cardiovascular/Chest: normal rate, regular rhythm Abdomen: normal bowel sounds, non tender, soft, obese Extremities: normal range of motion, non-tender, no calf tenderness, normal capillary refill Skin Exam: warm/dry Neurologic: electric cell tender II-XII grossly normal, no motor/sensory deficits, alert, oriented x 3, responsive Musculoskeletal: normal muscle bulk Laboratory Tests 04/11/20 05:40: White Blood Count 10.3, Red Blood Count 3.98L, Hemoglobin 11.9L, Hematocrit 33.6L, Mean Corpuscular Volume 85, Mean Corpuscular Hemoglobin 29.8, Mean Corpuscular Hemoglobin Concent 35.3, Red Cell Distribution Width 14.2, Platelet Count 530H, Mean Platelet Volume 6.8, Neutrophils (%) (Auto) 82.0H, Lymphocytes (%) (Auto) 11.8L, Monocytes (%) (Auto) 5.8, Eosinophils (%) (Auto) 0.0, Basophils (%) (Auto) 0.4, Sodium Level 143, Potassium Level 3.8, Chloride Level 110H, Carbon Dioxide Level 25, Anion Gap 8, Blood Urea Nitrogen 12, Creatinine 1.1, Estimat Glomerular Filtration Rate > 60, Glucose Level 118H, Calcium Level 8.0L, Ferritin 900H, Total Bilirubin 0.4, Direct Bilirubin 0.2, Aspartate Amino Transf (AST/SGOT) 34, Alanine Aminotransferase (ALT/SGPT) 60, Alkaline Phosphatase 49, C-Reactive Protein, Quantitative 5.1H, Total Protein 5.6L, Albumin 2.1L, Globulin 3.5, Albumin/Globulin Ratio 0.6L Current Medications Medications (Trade) Dose Ordered Sig/Bernard Route PRN Reason Start Time Stop Time Status Last Admin Dose Admin Albuterol Sulfate (Proventil MDI) 2 puff Q4H PRN INH Shortness of Breath 04/07/20 12:00 07/06/20 11:59 Ascorbic Acid (Vitamin C) 500 mg TWICE A DAY ORAL 04/07/20 18:00 05/07/20 17:59 04/10/20 17:56 Azithromycin 250 mg/Dextrose 275 ml @ 275 mls/hr Q24HRS IV 04/08/20 18:00 04/13/20 17:59 04/10/20 17:56 Dexamethasone Sodium Phosphate (Decadron 10mg/ ml Inj) 6 mg DAILY IV 04/08/20 09:00 04/17/20 09:01 11/27/20 08:26 Docusate Sodium (Colace) 100 mg TWICE A DAY ORAL 04/07/20 18:00 05/07/20 17:59 04/10/20 17:56 Enoxaparin Sodium (Lovenox) 120 mg Q24H SUBQ 04/07/20 17:00 07/06/20 16:59 04/10/20 17:57 Pantoprazole (Protonix) 40 mg DAILY ORAL 04/08/20 09:00 05/08/20 08:59 04/10/20 08:26 Piperacillin Sod/ Tazobactam Sod 3.375 gm/Dextrose 110 ml @ 27.5 mls/hr EVERY 8 HOURS IVPB 04/07/20 22:00 04/12/20 21:59 04/11/20 06:40 Potassium Chloride/Sodium Chloride 1,000 ml @ 50 mls/hr Q20H IV 04/07/20 13:00 05/07/20 12:59 04/11/20 06:41 Potassium Chloride (K-Dur) 40 meq TID ORAL 04/08/20 09:45 07/07/20 09:44 04/10/20 17:55 Remdesivir 100 mg/ Sodium Chloride 250 ml @ 250 mls/hr Q24H IV 04/08/20 17:00 04/11/20 17:59 04/10/20 17:50 Zinc Sulfate (Zinc Sulfate) 220 mg DAILY ORAL 04/07/20 12:15 07/06/20 12:14 04/10/20 08:26 Assessment/Plan Assessment/Plan ASSESSMENT Acute hypoxemic respiratory failure requiring nonrebreather mask COVID pneumonia Pneumomediastinum, - likely due to coughing, no PTX -resolved Morbid obesity Electrolyte imbalance: hypo Na, hypo K, hypo Mg Elevated LFT Elevated CK, possible rhabdo AZUCENA -resolved PLAN OF CARE tele O2 titrate to keep sat above 92% ; down to VM 14 L/min titrate further as tolerated ( apparently no high flow O2 in this facility as per RT now available) closely monitor oxygenation and resp status encourage patient to maintain a prone position as much as possible MDI Albuterol prn steroids [id number], remdesivvir x 5 days ( completing today) abx as per ID recs fup CXR 04/09 -> improvement in mild patchy diffuse bilateral pneumonia. Resolution of pneumomediastinum. fup inflammatory markers:initial: ferritin > 2000, CRP 36,8, D dimer 2.01, LDH 1495-, IL 6 pending - ferritin and CRP with trend down, IL6 not sent, apparently not performing for send out any more at this facility a/c with Lovenox/prophylaxis dose vit C and zinc initial CXR ->Bilateral infiltrates, suspicious for bilateral pneumonia, quite possibly Evidence of soft tissue gas within the fascial planes of the neck as well as soft tissue gas within the left supraclavicular fossa CT chest-> Bilateral diffuse and extensive infiltrates, most likely due to pneumonia, Pneumomediastinum. No evidence of pneumothorax now on fup CXR 04/[address] neck -> Extensive gas within the fascial planes of the neck, as described. Etiology not demonstrated. No evidence of fluid collection to suggest abscess Other findings included dental disease, bilateral maxillary sinus polyps versus mucous retention cysts IVF nephro eval appreciated monitor renal parameters, LFT, CK trending down, AST and total bili down [id number],3 prediabetes., no concentrated sweets diet lipid panel stable supportive care slow improvement case discussed and evaluated by supervising physician Mariela Dover NP Apr 11, 2020 08:02
[2020-04-11] MEDS: Docusate 100mg cap ORAL SCH ×2 (09:31→17:30)
[2020-04-11] MEDS: Zinc Sulfate 220mg ORAL SCH (09:31)
[2020-04-11] MEDS: Ascorbic Acid 500mg tab ORAL SCH ×2 (09:32→17:30)
[2020-04-11] MEDS: dexAMETHasone 10mg/ml Inj IV SCH (09:33)
[2020-04-11 12:00] VITALS: BP 139/86
--- NOTE | 2020-04-11 14:38 | Surgery Progress Note ---
Surgery Progress Note Subjective Symptoms: improved, pain absent, tolerating diet, voiding well, passing flatus, BM Objective Last 24 Hour Vital Signs Date Time Temp Pulse Resp B/P (MAP) Pulse Ox O2 Delivery O2 Flow Rate FiO2 04/11/20 12:00 93 04/11/20 09:00 Venturi Mask 14.0 04/11/20 08:00 68 04/11/20 08:00 97.7 57 22 110/60 (77) 96 04/11/20 04:00 97.5 78 20 105/58 (74) 98 04/11/20 04:00 76 04/11/20 00:00 97.3 81 20 124/67 (86) 94 04/11/20 00:00 83 04/10/20 21:00 Venturi Mask 14.0 04/10/20 20:00 97.5 84 22 130/86 (101) 94 04/10/20 20:00 87 04/10/20 19:15 70 20 97 Non-Rebreather 15.0 100 04/10/20 16:00 81 04/10/20 16:00 98.5 82 21 126/64 (84) 97 I&O Intake and Output 04/10/20 04/11/20 19:00 07:00 Intake Total 1420 ml 480 ml Output Total 600 ml Balance 1420 ml -120 ml Intake Oral 1420 ml 480 ml Output Urine Total 600 ml # Voids 4 2 Cardiovascular: RSR Respiratory: clear Abdomen: soft, non-tender, present bowel sounds Extremities: no edema, no tenderness, no cyanosis Laboratory Tests Test 04/11/20 05:40 White Blood Count 10.3 K/UL (4.8-10.8) Red Blood Count 3.98 M/UL (4.70-6.10) L Hemoglobin 11.9 G/DL (14.2-18.0) L Hematocrit 33.6 % (42.0-52.0) L Mean Corpuscular Volume 85 FL (80-99) Mean Corpuscular Hemoglobin 29.8 PG (27.0-31.0) Mean Corpuscular Hemoglobin Concent 35.3 G/DL (32.0-36.0) Red Cell Distribution Width 14.2 % (11.6-14.8) Platelet Count 530 K/UL (150-450) H Mean Platelet Volume 6.8 FL (6.5-10.1) Neutrophils (%) (Auto) 82.0 % (45.0-75.0) H Lymphocytes (%) (Auto) 11.8 % (20.0-45.0) L Monocytes (%) (Auto) 5.8 % (1.0-10.0) Eosinophils (%) (Auto) 0.0 % (0.0-3.0) Basophils (%) (Auto) 0.4 % (0.0-2.0) Sodium Level 143 MMOL/L (136-145) Potassium Level 3.8 MMOL/L (3.5-5.1) Chloride Level 110 MMOL/L (98-107) H Carbon Dioxide Level 25 MMOL/L (21-32) Anion Gap 8 mmol/L (5-15) Blood Urea Nitrogen 12 mg/dL (7-18) Creatinine 1.1 MG/DL (0.55-1.30) Estimat Glomerular Filtration Rate > 60 mL/min (>60) Glucose Level 118 MG/DL (74-106) H Calcium Level 8.0 MG/DL (8.5-10.1) L Ferritin 900 NG/ML (8-388) H Total Bilirubin 0.4 MG/DL (0.2-1.0) Direct Bilirubin 0.2 MG/DL (0.0-0.3) Aspartate Amino Transf (AST/SGOT) 34 U/L (15-37) Alanine Aminotransferase (ALT/SGPT) 60 U/L (12-78) Alkaline Phosphatase 49 U/L (46-116) C-Reactive Protein, Quantitative 5.1 mg/dL (0.00-0.90) H Total Protein 5.6 G/DL (6.4-8.2) L Albumin 2.1 G/DL (3.4-5.0) L Globulin 3.5 g/dL Albumin/Globulin Ratio 0.6 (1.0-2.7) L Plan Problems: (1) Pneumomediastinum Assessment & Plan: 29M with covid, sob, noted to have extensive air neck, face, mediastinum. no trauma. no ptx etiology unknown. no abscess. afebrile, HD Stable, labs noted ?bleb tolerating diet no pain okay for diet will monitor clinically will cont work up etiology Lungs: There is been improvement in mild patchy diffuse bilateral pneumonia. Pleural space: Unremarkable. No pneumothorax. Heart: Unremarkable. No cardiomegaly. Mediastinum: There is been resolution of pneumomediastinum. Bones/joints: Unremarkable. IMPRESSION: 1. There is been improvement in mild patchy diffuse bilateral pneumonia. 2. There is been resolution of pneumomediastinum. Gas is seen within the deep fascial planes of the neck as well as superficially. Gas is seen in the retropharyngeal space extending from the level of the adenoids into the upper mediastinum, within the vascular space surrounding the carotid sheaths, within the right parapharyngeal space, surrounding the thyroid, in the lower neck anterior to the strap muscles and also adjacent and superficial to the left sternocleidomastoid. Some gas is also seen anterior to the upper medial pectoralis major muscle on the left and in the bilateral supraclavicular fossae. No focal fluid collection to suggest abscess demonstrated. No definite tracheal or esophageal wall defect is demonstrated. Gas also extends into the mediastinum and is described in more detail on separate chest CT report There are bilateral maxillary sinus polyps versus mucous retention cysts. There is evidence of dental disease with severe caries and periodontal changes involving the left second maxillary molar. No cervical mass or adenopathy demonstrated. The salivary glands are unremarkable. The visualized lungs demonstrate extensive pulmonary parenchymal disease. This is described on separate chest CT report. Impression: Extensive gas within the fascial planes of the neck, as described. Etiology not demonstrated. No evidence of fluid collection to suggest abscess Other findings as noted, including dental disease, bilateral maxillary sinus polyps versus mucous retention cysts (2) Dehydration (3) Hypokalemia (4) Diarrhea (5) Obesity (6) AZUCENA (acute kidney injury) (7) Hypoxemic respiratory failure, chronic (8) COVID-19 Leoncio Bryant Apr 11, 2020 14:38
--- NOTE | 2020-04-11 15:32 | Infectious Diseases Prog Note ---
Assessment/Plan Assessment/Plan ASSESSMENT AND PLAN: 1. covid-19 infection, pna, , ? cap, ? gas in neck, ? pneumomediastinum - zosyn, azithromycin - day # 5 - remdesivir - day # 5/5 - dexamethasone - day # 5 - monitor labs - monitor hypoxia, clinically improved, less O2 requirement - chest x-ray - improved 2. Obesity. 3. Elevated creatinine. 4. pmh o/w negative 5. No known allergies. 6. Social history is negative. 7. Family history is noncontributory. 8. Case was discussed with RN. 9. Case was discussed with Mariela Dover, nurse practitioner for Dr. Shipley. Subjective Constitutional: Denies: fever HEENT: Reports: congestion - less per patient Respiratory: Reports: shortness of breath - less per patient Cardiovascular: Denies: chest pain Gastrointestinal/Abdominal: Denies: nausea, vomiting, diarrhea Genitourinary: Denies: dysuria Neurologic: Denies: headache Psychiatric: Denies: depression Skin: Denies: rash Hematologic: Denies: bleeding Musculoskeletal: Denies: pain Allergies: Coded Allergies: No Known Allergies (Unverified , 03/06/19) Objective Last 24 Hour Vital Signs Date Time Temp Pulse Resp B/P (MAP) Pulse Ox O2 Delivery O2 Flow Rate FiO2 04/11/20 12:00 93 04/11/20 12:00 97.5 73 22 139/86 (103) 93 04/11/20 09:00 Venturi Mask 14.0 04/11/20 08:00 68 04/11/20 08:00 97.7 57 22 110/60 (77) 96 04/11/20 04:00 97.5 78 20 105/58 (74) 98 04/11/20 04:00 76 04/11/20 00:00 97.3 81 20 124/67 (86) 94 04/11/20 00:00 83 04/10/20 21:00 Venturi Mask 14.0 04/10/20 20:00 97.5 84 22 130/86 (101) 94 04/10/20 20:00 87 04/10/20 19:15 70 20 97 Non-Rebreather 15.0 100 04/10/20 16:00 81 04/10/20 16:00 98.5 82 21 126/64 (84) 97 Height (Feet): 5 Height (Inches): 8.00 Weight (Pounds): 374 General Appearance: no acute distress HEENT: normocephalic, atraumatic, anicteric Respiratory/Chest: crackles/rales, rhonchi - bilaterally Cardiovascular: normal rate, regular rhythm, no gallop/murmur Abdomen: normal bowel sounds, soft, non tender, no organomegaly, non distended Genitourinary: other - no amaral Extremities: no cyanosis Skin: no rash Neurologic/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 COMPARISON: 2 days prior FINDINGS: Lungs: There is been improvement in mild patchy diffuse bilateral pneumonia. Pleural space: Unremarkable. No pneumothorax. Heart: Unremarkable. No cardiomegaly. Mediastinum: There is been resolution of pneumomediastinum. Bones/joints: Unremarkable. IMPRESSION: 1. There is been improvement in mild patchy diffuse bilateral pneumonia. 2. There is been resolution of pneumomediastinum. Microbiology Date/Time Source Procedure Growth Status 04/07/20 10:30 Urine,Clean Catch Urine Culture - Final NO GROWTH AFTER 48 HOURS Complete 04/07/20 09:46 Nasal Nares Right - Final Complete 04/07/20 09:46 Nasal Nares Right - Final Complete 04/07/20 09:20 Blood Blood Culture - Preliminary NO GROWTH AFTER 4 DAYS Resulted Laboratory Tests Test 04/11/20 05:40 White Blood Count 10.3 K/UL (4.8-10.8) Red Blood Count 3.98 M/UL (4.70-6.10) L Hemoglobin 11.9 G/DL (14.2-18.0) L Hematocrit 33.6 % (42.0-52.0) L Mean Corpuscular Volume 85 FL (80-99) Mean Corpuscular Hemoglobin 29.8 PG (27.0-31.0) Mean Corpuscular Hemoglobin Concent 35.3 G/DL (32.0-36.0) Red Cell Distribution Width 14.2 % (11.6-14.8) Platelet Count 530 K/UL (150-450) H Mean Platelet Volume 6.8 FL (6.5-10.1) Neutrophils (%) (Auto) 82.0 % (45.0-75.0) H Lymphocytes (%) (Auto) 11.8 % (20.0-45.0) L Monocytes (%) (Auto) 5.8 % (1.0-10.0) Eosinophils (%) (Auto) 0.0 % (0.0-3.0) Basophils (%) (Auto) 0.4 % (0.0-2.0) Sodium Level 143 MMOL/L (136-145) Potassium Level 3.8 MMOL/L (3.5-5.1) Chloride Level 110 MMOL/L (98-107) H Carbon Dioxide Level 25 MMOL/L (21-32) Anion Gap 8 mmol/L (5-15) Blood Urea Nitrogen 12 mg/dL (7-18) Creatinine 1.1 MG/DL (0.55-1.30) Estimat Glomerular Filtration Rate > 60 mL/min (>60) Glucose Level 118 MG/DL (74-106) H Calcium Level 8.0 MG/DL (8.5-10.1) L Ferritin 900 NG/ML (8-388) H Total Bilirubin 0.4 MG/DL (0.2-1.0) Direct Bilirubin 0.2 MG/DL (0.0-0.3) Aspartate Amino Transf (AST/SGOT) 34 U/L (15-37) Alanine Aminotransferase (ALT/SGPT) 60 U/L (12-78) Alkaline Phosphatase 49 U/L (46-116) C-Reactive Protein, Quantitative 5.1 mg/dL (0.00-0.90) H Total Protein 5.6 G/DL (6.4-8.2) L Albumin 2.1 G/DL (3.4-5.0) L Globulin 3.5 g/dL Albumin/Globulin Ratio 0.6 (1.0-2.7) L Current Medications Medications (Trade) Dose Ordered Sig/Bernard Route PRN Reason Start Time Stop Time Status Last Admin Dose Admin Albuterol Sulfate (Proventil MDI) 2 puff Q4H PRN INH Shortness of Breath 04/07/20 12:00 07/06/20 11:59 Ascorbic Acid (Vitamin C) 500 mg TWICE A DAY ORAL 04/07/20 18:00 05/07/20 17:59 04/11/20 09:32 Azithromycin 250 mg/Dextrose 275 ml @ 275 mls/hr Q24HRS IV 04/08/20 18:00 04/13/20 17:59 04/10/20 17:56 Dexamethasone Sodium Phosphate (Decadron 4mg/ml vial) 6 mg DAILY IVP 04/12/20 09:00 04/17/20 09:01 Docusate Sodium (Colace) 100 mg TWICE A DAY ORAL 04/07/20 18:00 05/07/20 17:59 04/11/20 09:31 Enoxaparin Sodium (Lovenox) 120 mg Q24H SUBQ 04/07/20 17:00 07/06/20 16:59 04/10/20 17:57 Pantoprazole (Protonix) 40 mg DAILY ORAL 04/08/20 09:00 05/08/20 08:59 04/11/20 09:31 Piperacillin Sod/ Tazobactam Sod 3.375 gm/Dextrose 110 ml @ 27.5 mls/hr EVERY 8 HOURS IVPB 04/07/20 22:00 04/12/20 21:59 04/11/20 13:48 Potassium Chloride/Sodium Chloride 1,000 ml @ 50 mls/hr Q20H IV 04/07/20 13:00 05/07/20 12:59 04/11/20 06:41 Potassium Chloride (K-Dur) 40 meq TID ORAL 04/08/20 09:45 07/07/20 09:44 04/11/20 13:49 Remdesivir 100 mg/ Sodium Chloride 250 ml @ 250 mls/hr Q24H IV 04/08/20 17:00 04/11/20 17:59 04/10/20 17:50 Zinc Sulfate (Zinc Sulfate) 220 mg DAILY ORAL 04/07/20 12:15 07/06/20 12:14 04/11/20 09:31 Dennis Foy MD Apr 11, 2020 15:32
--- NOTE | 2020-04-11 15:33 | Nephrology Progress Note ---
Assessment/Plan Problem List: (1) AZUCENA (acute kidney injury) (2) Hypokalemia (3) Dehydration (4) Diarrhea (5) Obesity (6) Hypoxemic respiratory failure, chronic (7) COVID-19 Assessment Acute hypoxemic respiratory failure requiring cardioversion nonrebreather mask COVID pneumonia Morbid obesity Electrolyte imbalance: hypo Na, hypo K, hypo Mg Elevated LFT Elevated CK, possible rhabdo AZUCENA Plan April 11: Labs reviewed. Stable from renal standpoint of view. Continue per consultants. April 10: Labs reviewed. Electrolytes within normal range. Continue per consultants. Not much to add from renal standpoint of view. April 09: Labs reviewed. Stable from renal standpoint of view. Continue per PMD and consultants. April 08: Labs reviewed. Serum sodium improved. Low potassium replaced. Serum creatinine lowered. Meds reviewed. Receiving treatment for COVID-19. Continue to monitor renal parameters and electrolytes. Subjective ROS Limited/Unobtainable: No Objective Objective Last 24 Hour Vital Signs Date Time Temp Pulse Resp B/P (MAP) Pulse Ox O2 Delivery O2 Flow Rate FiO2 04/11/20 12:00 93 04/11/20 12:00 97.5 73 22 139/86 (103) 93 04/11/20 09:00 Venturi Mask 14.0 04/11/20 08:00 68 04/11/20 08:00 97.7 57 22 110/60 (77) 96 04/11/20 04:00 97.5 78 20 105/58 (74) 98 04/11/20 04:00 76 04/11/20 00:00 97.3 81 20 124/67 (86) 94 04/11/20 00:00 83 04/10/20 21:00 Venturi Mask 14.0 04/10/20 20:00 97.5 84 22 130/86 (101) 94 04/10/20 20:00 87 04/10/20 19:15 70 20 97 Non-Rebreather 15.0 100 04/10/20 16:00 81 04/10/20 16:00 98.5 82 21 126/64 (84) 97 Intake and Output 04/10/20 04/11/20 19:00 07:00 Intake Total 1420 ml 480 ml Output Total 600 ml Balance 1420 ml -120 ml Intake Oral 1420 ml 480 ml Output Urine Total 600 ml # Voids 4 2 Current Medications Medications (Trade) Dose Ordered Sig/Bernard Route PRN Reason Start Time Stop Time Status Last Admin Dose Admin Albuterol Sulfate (Proventil MDI) 2 puff Q4H PRN INH Shortness of Breath 04/07/20 12:00 07/06/20 11:59 Ascorbic Acid (Vitamin C) 500 mg TWICE A DAY ORAL 04/07/20 18:00 05/07/20 17:59 04/11/20 09:32 Azithromycin 250 mg/Dextrose 275 ml @ 275 mls/hr Q24HRS IV 04/08/20 18:00 04/13/20 17:59 04/10/20 17:56 Dexamethasone Sodium Phosphate (Decadron 4mg/ml vial) 6 mg DAILY IVP 04/12/20 09:00 04/17/20 09:01 Docusate Sodium (Colace) 100 mg TWICE A DAY ORAL 04/07/20 18:00 05/07/20 17:59 04/11/20 09:31 Enoxaparin Sodium (Lovenox) 120 mg Q24H SUBQ 04/07/20 17:00 07/06/20 16:59 04/10/20 17:57 Pantoprazole (Protonix) 40 mg DAILY ORAL 04/08/20 09:00 05/08/20 08:59 04/11/20 09:31 Piperacillin Sod/ Tazobactam Sod 3.375 gm/Dextrose 110 ml @ 27.5 mls/hr EVERY 8 HOURS IVPB 04/07/20 22:00 04/12/20 21:59 04/11/20 13:48 Potassium Chloride/Sodium Chloride 1,000 ml @ 50 mls/hr Q20H IV 04/07/20 13:00 05/07/20 12:59 04/11/20 06:41 Potassium Chloride (K-Dur) 40 meq TID ORAL 04/08/20 09:45 07/07/20 09:44 04/11/20 13:49 Remdesivir 100 mg/ Sodium Chloride 250 ml @ 250 mls/hr Q24H IV 04/08/20 17:00 04/11/20 17:59 04/10/20 17:50 Zinc Sulfate (Zinc Sulfate) 220 mg DAILY ORAL 04/07/20 12:15 07/06/20 12:14 04/11/20 09:31 Laboratory Tests 04/11/20 05:40: White Blood Count 10.3, Red Blood Count 3.98L, Hemoglobin 11.9L, Hematocrit 33.6L, Mean Corpuscular Volume 85, Mean Corpuscular Hemoglobin 29.8, Mean Corpuscular Hemoglobin Concent 35.3, Red Cell Distribution Width 14.2, Platelet Count 530H, Mean Platelet Volume 6.8, Neutrophils (%) (Auto) 82.0H, Lymphocytes (%) (Auto) 11.8L, Monocytes (%) (Auto) 5.8, Eosinophils (%) (Auto) 0.0, Basophils (%) (Auto) 0.4, Sodium Level 143, Potassium Level 3.8, Chloride Level 110H, Carbon Dioxide Level 25, Anion Gap 8, Blood Urea Nitrogen 12, Creatinine 1.1, Estimat Glomerular Filtration Rate > 60, Glucose Level 118H, Calcium Level 8.0L, Ferritin 900H, Total Bilirubin 0.4, Direct Bilirubin 0.2, Aspartate Amino Transf (AST/SGOT) 34, Alanine Aminotransferase (ALT/SGPT) 60, Alkaline Phosphatase 49, C-Reactive Protein, Quantitative 5.1H, Total Protein 5.6L, Albumin 2.1L, Globulin 3.5, Albumin/Globulin Ratio 0.6L Height (Feet): 5 Height (Inches): 8.00 Weight (Pounds): 374 General Appearance: no apparent distress Objective No change Jamey Mar MD Apr 11, 2020 15:33
--- NOTE | 2020-04-11 15:35 | NUR ---
NURSE NOTES: patient received valuables from home. The list includes; lawn sprinkler servicer, ipad, Shorts, shirt.
[2020-04-11 16:00] VITALS: BP 143/72
[2020-04-11] MEDS: Maintenance Dose:Remdesivir 100mg/NS 230ml x 4 Doses IV SCH ×2 (17:30)
[2020-04-11] MEDS: Enoxaparin 120 mg inj SUBQ SCH (17:44)
[2020-04-11] MEDS: Azithromycin 250 MG in D5W 275 ML IV SCH (18:23)
--- NOTE | 2020-04-11 19:35 | NUR ---
NURSE HAND-OFF REPORT: Important Events on Shift:[] Patient Status: [FULL CODE] Diet: [cardiac] Pending Orders: [] Pending Results/Labs:[] Pending MD notification:[] Latest Vital Signs: Temperature 97.7 , Pulse 75 , B/P 143 /72 , Respiratory Rate 20 , O2 SAT 97 , Venturi Mask, O2 Flow Rate 15.0 . Vital Sign Comment: [] EKG Rhythm: Sinus Rhythm Rhythm change?: N MD Notified?: N - MD Response: Latest Nunez Fall Score: 20 Fall Risk: Low Risk Safety Measures: Call light Within Reach, Bed Alarm Zone 2, Side Rails Side Rails x2, Bed position Low and Locked. Fall Precautions: Patient Fall Education Report given to [Kalen THOMAS].
--- NOTE | 2020-04-11 19:40 | NUR ---
NURSE NOTES: Got report from Kelvin THOMAS. Pt in stable condition. Denies any pain or discomfort. Pt resting in bed comfortably. Bed in low and locked position, call light within reach, bedside table within reach. Continue to monitor.
[2020-04-11 20:00] VITALS: BP 130/75
[2020-04-12] VITALS: BP 122/73
[2020-04-12] MEDS: NS w/KCl 20mEq 1000ml 1,000 ML IV SCH ×2 (03:32→23:32)
[2020-04-12 04:00] VITALS: BP 143/82
[2020-04-12] MEDS: Piperacillin/Tazobactam 3.375 GM in D5W 110 ML IVPB SCH ×3 (05:49→21:27)
--- NOTE | 2020-04-12 07:00 | NUR ---
NURSE HAND-OFF REPORT: Important Events on Shift:[] Patient Status: [Stable] Diet: [Cardiac] Pending Orders: [] Pending Results/Labs:[] Pending MD notification:[] Latest Vital Signs: Temperature 98.0 , Pulse 80 , B/P 143 /82 , Respiratory Rate 20 , O2 SAT 96 , Venturi Mask, O2 Flow Rate 14.0 . Vital Sign Comment: [] EKG Rhythm: Sinus Rhythm Rhythm change?: N MD Notified?: N - MD Response: Latest Nunez Fall Score: 20 Fall Risk: Low Risk Safety Measures: Call light Within Reach, Bed Alarm Zone 2, Side Rails Side Rails x2, Bed position Low and Locked. Fall Precautions: Patient Fall Education Report given to [Rere THOMAS].
--- NOTE | 2020-04-12 07:45 | NUR ---
NURSE NOTES: Received report from WILLIAM Miller. Pt is stable and sleeping in bed. Pt on venturi 14L, 55% FiO2. Pt has no s/s or complaint of distress at this time. Pt IV on LFA running fluids w/ KCL, asymptomatic and intact. Pt bed low and locked, call light in reach and bed alarm on.
[2020-04-12 08:00] VITALS: BP 129/59
--- NOTE | 2020-04-12 08:32 | Pulmonology Progress Note ---
Subjective ROS Limited/Unobtainable: No Constitutional: Denies: fever Gastrointestinal/Abdominal: Denies: nausea, vomiting, diarrhea Psychiatric: Denies: depression Skin: Denies: rash Musculoskeletal: Denies: pain Allergies: Coded Allergies: No Known Allergies (Unverified , 03/06/19) Subjective weaned to VM 14 l/min no fevers, denies chest pain CXR 04/09 better, pneumomediastinum resolved able to ambulate to bathroom yesterday without supplemental oxygen for a short time maintained prone position as tolerated pt wants to go home, but still on oxygen via VM ( claims can stay without O2 intermittently) labs pending for this am Objective Last 24 Hour Vital Signs Date Time Temp Pulse Resp B/P (MAP) Pulse Ox O2 Delivery O2 Flow Rate FiO2 04/12/20 04:00 98.0 86 20 143/82 (102) 96 04/12/20 04:00 80 04/12/20 00:00 97.5 81 20 122/73 (89) 98 04/12/20 00:00 95 04/11/20 21:00 Venturi Mask 14.0 04/11/20 20:00 97.9 88 20 130/75 (93) 97 04/11/20 19:11 75 20 97 Non-Rebreather 15.0 100 04/11/20 16:00 97.7 89 22 143/72 (95) 96 04/11/20 16:00 97 04/11/20 12:00 93 04/11/20 12:00 97.5 73 22 139/86 (103) 93 04/11/20 09:00 Venturi Mask 14.0 Intake and Output 04/11/20 04/12/20 19:00 07:00 Intake Total 1300 ml Output Total 1000 ml 1100 ml Balance 300 ml -1100 ml Intake Oral 600 ml IV Total 700 ml Output Urine Total 1000 ml 1100 ml Objective General Appearance: young obese male on VM 14 L/min in NAD Lines, tubes and drains: peripheral HEENT: normocephalic, atraumatic, anicteric, PERRL Neck: non-tender, supple Respiratory/Chest: + accessory muscle use, few scattered rhonchi BL Cardiovascular/Chest: normal rate, regular rhythm Abdomen: normal bowel sounds, non tender, soft, obese Extremities: normal range of motion, non-tender, no calf tenderness, normal capillary refill Skin Exam: warm/dry Neurologic: 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 normal, no motor/sensory deficits, alert, orien ze x 3, responsive Musculoskeletal: normal muscle bulk Current Medications Medications (Trade) Dose Ordered Sig/Bernard Route PRN Reason Start Time Stop Time Status Last Admin Dose Admin Albuterol Sulfate (Proventil MDI) 2 puff Q4H PRN INH Shortness of Breath 04/07/20 12:00 07/06/20 11:59 Ascorbic Acid (Vitamin C) 500 mg TWICE A DAY ORAL 04/07/20 18:00 05/07/20 17:59 04/11/20 17:30 Azithromycin 250 mg/Dextrose 275 ml @ 275 mls/hr Q24HRS IV 04/08/20 18:00 04/13/20 17:59 04/11/20 18:23 Dexamethasone Sodium Phosphate (Decadron 4mg/ml vial) 6 mg DAILY IVP 04/12/20 09:00 04/17/20 09:01 Docusate Sodium (Colace) 100 mg TWICE A DAY ORAL 04/07/20 18:00 05/07/20 17:59 04/11/20 17:30 Enoxaparin Sodium (Lovenox) 120 mg Q24H SUBQ 04/07/20 17:00 07/06/20 16:59 04/11/20 17:44 Pantoprazole (Protonix) 40 mg DAILY ORAL 04/08/20 09:00 05/08/20 08:59 04/11/20 09:31 Piperacillin Sod/ Tazobactam Sod 3.375 gm/Dextrose 110 ml @ 27.5 mls/hr EVERY 8 HOURS IVPB 04/11/20 22:00 04/16/20 21:59 04/12/20 05:49 Potassium Chloride/Sodium Chloride 1,000 ml @ 50 mls/hr Q20H IV 04/07/20 13:00 05/07/20 12:59 04/12/20 03:32 Potassium Chloride (K-Dur) 40 meq TID ORAL 04/08/20 09:45 07/07/20 09:44 04/11/20 17:31 Zinc Sulfate (Zinc Sulfate) 220 mg DAILY ORAL 04/07/20 12:15 07/06/20 12:14 04/11/20 09:31 Assessment/Plan Assessment/Plan ASSESSMENT Acute hypoxemic respiratory failure requiring nonrebreather mask COVID pneumonia Pneumomediastinum, - likely due to coughing, no PTX -resolved Morbid obesity Electrolyte imbalance: hypo Na, hypo K, hypo Mg Elevated LFT Elevated CK, possible rhabdo AZUCENA -resolved PLAN OF CARE tele O2 titrate to keep sat above 92% ; down to VM 14 L/min titrate further as tolerated ( apparently no high flow O2 in this facility as per RT now available) closely monitor oxygenation and resp status encourage patient to maintain a prone position as much as possible MDI Albuterol prn steroids [id number], remdesivir x 5 days ( completed 04/11) abx as per ID recs fup CXR 04/09 -> improvement in mild patchy diffuse bilateral pneumonia. Resolution of pneumomediastinum. CXR in am fup inflammatory markers:initial: ferritin > 2000, CRP 36,8, D dimer 2.01, LDH 1495-, IL 6 pending - ferritin and CRP with trend down, IL6 not sent, apparently not performing for send out any more at this facility a/c with Lovenox/prophylaxis dose vit C and zinc initial CXR ->Bilateral infiltrates, suspicious for bilateral pneumonia, quite possibly Evidence of soft tissue gas within the fascial planes of the neck as well as soft tissue gas within the left supraclavicular fossa CT chest-> Bilateral diffuse and extensive infiltrates, most likely due to pneumonia, Pneumomediastinum. No evidence of pneumothorax now on fup CXR 04/[address] neck -> Extensive gas within the fascial planes of the neck, as described. Etiology not demonstrated. No evidence of fluid collection to suggest abscess Other findings included dental disease, bilateral maxillary sinus polyps versus mucous retention cysts dc IVF nephro eval appreciated monitor renal parameters, LFT, CK trending down, AST and total bili down [id number],3 prediabetes., no concentrated sweets diet lipid panel stable supportive care RT to titrate O2 to keep sat > 92%, can't go home if hypoxic and O2 dependent slow improvement case discussed and evaluated by supervising physician Mariela Dover NP Apr 12, 2020 08:31
[2020-04-12 09:05] LABS: BASOPHILS % (AUTO) 0.6 % (0.0-2.0); EOSINOPHILS % (AUTO) 0.2 % (0.0-3.0); HEMATOCRIT 35.1 % (42.0-52.0); HEMOGLOBIN 12.3 G/DL (14.2-18.0); LYMPHOCYTES % (AUTO) 12.5 % (20.0-45.0); MEAN CORPUSCULAR VOLUME 88 FL (80-99); MONOCYTES % (AUTO) 6.1 % (1.0-10.0); NEUTROPHILS % (AUTO) 80.7 % (45.0-75.0); PLATELET COUNT 552 K/UL (150-450); RED CELL DISTRIBUTION WIDTH 13.6 % (11.6-14.8); WHITE BLOOD COUNT 12.4 K/UL (4.8-10.8)
[2020-04-12] MEDS: Docusate 100mg cap ORAL SCH ×2 (09:20→18:03)
[2020-04-12] MEDS: Zinc Sulfate 220mg ORAL SCH (09:20)
[2020-04-12] MEDS: Ascorbic Acid 500mg tab ORAL SCH ×2 (09:20→18:03)
[2020-04-12 09:23] LABS: ALANINE AMINOTRANSFERASE 62 U/L (12-78); ALBUMIN 2.1 G/DL (3.4-5.0); ALBUMIN/GLOBULIN RATIO 0.6 (1.0-2.7); ALKALINE PHOSPHATASE 53 U/L (46-116); ANION GAP 7 mmol/L (5-15); ASPARTATE AMINO TRANSFERASE 32 U/L (15-37); BILIRUBIN,TOTAL 0.3 MG/DL (0.2-1.0); BLOOD UREA NITROGEN 10 mg/dL (7-18); CALCIUM 7.8 MG/DL (8.5-10.1); CARBON DIOXIDE 26 MMOL/L (21-32); CHLORIDE 110 MMOL/L (98-107); CREATININE 0.8 MG/DL (0.55-1.30); POTASSIUM 3.6 MMOL/L (3.5-5.1); SODIUM 143 MMOL/L (136-145)
--- NOTE | 2020-04-12 09:52 | NUR ---
RADIOLOGY NOTE: PORTABLE CHEST X-RAY COMPLETED AT 0910 HRS.
--- NOTE | 2020-04-12 10:03 | Diagnostic Imaging Report ---
EXAM: XR Chest, 1 View CLINICAL HISTORY: INFECT TECHNIQUE: Frontal view of the chest. COMPARISON: April 09, 2020. FINDINGS: Stable cardiomediastinal silhouette. Markedly low lung volumes. Interval worsening of bilateral multifocal pneumonia. No large pleural effusions. IMPRESSION: Interval worsening of bilateral multifocal pneumonia. <MYCVCSECTION> Communications: 04/12/20 10:18 Verify Receipt with Nurse Verified receipt with WILLIAM Jernigan on 04/12 10:19 (-08:00)
--- NOTE | 2020-04-12 10:20 | NUR ---
NURSE NOTES: NADEEM Dover made aware of Pt CXR result/ awaiting call back
--- NOTE | 2020-04-12 11:56 | NUR ---
RD ASSESSMENT & RECOMMENDATIONS SEE CARE ACTIVITY FOR COMPLETE ASSESSMENT DAILY ESTIMATED NEEDS: Needs based on Pulmonary, obese 95kg abw 20-25 kcals/kg 0366-4700 total kcals 1-1.5 g protein/kg 95-143 g total protein 20-30ml/kcal mL/kg 7799-6077 total fluid mLs NUTRITION DIAGNOSIS: Altered nutrition related lab values r.t clinical status as evidenced by A1C 6.3, elev BG (118-151). CURRENT DIET: cardiac PO DIET RECOMMENDATIONS: [facility] ADDITIONAL RECOMMENDATIONS: 1) Obtain a standing weight as able 2) rec BG POC w/ niss as needed 3) diet recs as above 4) Monitor resp status and po intake
[2020-04-12 12:00] VITALS: BP 138/67
--- NOTE | 2020-04-12 13:21 | Nephrology Progress Note ---
Assessment/Plan Problem List: (1) AZUCENA (acute kidney injury) (2) Hypokalemia (3) Dehydration (4) Diarrhea (5) Obesity (6) Hypoxemic respiratory failure, chronic (7) COVID-19 Assessment Acute hypoxemic respiratory failure requiring cardioversion nonrebreather mask COVID pneumonia Morbid obesity Electrolyte imbalance: hypo Na, hypo K, hypo Mg Elevated LFT Elevated CK, possible rhabdo AZUCENA Plan April 12: Labs reviewed reviewed. Remains stable from renal standpoint of view. Continue per consultants. April 11: Labs reviewed. Stable from renal standpoint of view. Continue per consultants. April 10: Labs reviewed. Electrolytes within normal range. Continue per consultants. Not much to add from renal standpoint of view. April 09: Labs reviewed. Stable from renal standpoint of view. Continue per PMD and consultants. April 08: Labs reviewed. Serum sodium improved. Low potassium replaced. Serum creatinine lowered. Meds reviewed. Receiving treatment for COVID-19. Continue to monitor renal parameters and electrolytes. Subjective ROS Limited/Unobtainable: No Objective Objective Last 24 Hour Vital Signs Date Time Temp Pulse Resp B/P (MAP) Pulse Ox O2 Delivery O2 Flow Rate FiO2 04/12/20 12:00 98.7 71 20 138/67 (90) 96 04/12/20 09:00 Venturi Mask 14.0 04/12/20 08:46 72 20 97 Non-Rebreather 15.0 100 04/12/20 08:00 98 04/12/20 08:00 98.1 81 19 129/59 (82) 96 04/12/20 04:00 98.0 86 20 143/82 (102) 96 04/12/20 04:00 80 04/12/20 00:00 97.5 81 20 122/73 (89) 98 04/12/20 00:00 95 04/11/20 21:00 Venturi Mask 14.0 04/11/20 20:00 97.9 88 20 130/75 (93) 97 04/11/20 19:11 75 20 97 Non-Rebreather 15.0 100 04/11/20 16:00 97.7 89 22 143/72 (95) 96 04/11/20 16:00 97 Intake and Output 04/11/20 04/12/20 19:00 07:00 Intake Total 1300 ml Output Total 1000 ml 1100 ml Balance 300 ml -1100 ml Intake Oral 600 ml IV Total 700 ml Output Urine Total 1000 ml 1100 ml Current Medications Medications (Trade) Dose Ordered Sig/Bernard Route PRN Reason Start Time Stop Time Status Last Admin Dose Admin Albuterol Sulfate (Proventil MDI) 2 puff Q4H PRN INH Shortness of Breath 04/07/20 12:00 07/06/20 11:59 Ascorbic Acid (Vitamin C) 500 mg TWICE A DAY ORAL 04/07/20 18:00 05/07/20 17:59 04/12/20 09:20 Azithromycin 250 mg/Dextrose 275 ml @ 275 mls/hr Q24HRS IV 04/08/20 18:00 04/13/20 17:59 04/11/20 18:23 Dexamethasone Sodium Phosphate (Decadron 4mg/ml vial) 6 mg DAILY IVP 04/12/20 09:00 04/17/20 09:01 04/12/20 09:22 Docusate Sodium (Colace) 100 mg TWICE A DAY ORAL 04/07/20 18:00 05/07/20 17:59 04/12/20 09:20 Enoxaparin Sodium (Lovenox) 120 mg Q24H SUBQ 04/07/20 17:00 07/06/20 16:59 04/11/20 17:44 Pantoprazole (Protonix) 40 mg DAILY ORAL 04/08/20 09:00 05/08/20 08:59 04/12/20 09:20 Piperacillin Sod/ Tazobactam Sod 3.375 gm/Dextrose 110 ml @ 27.5 mls/hr EVERY 8 HOURS IVPB 04/11/20 22:00 04/16/20 21:59 04/12/20 05:49 Potassium Chloride/Sodium Chloride 1,000 ml @ 50 mls/hr Q20H IV 04/07/20 13:00 05/07/20 12:59 04/12/20 03:32 Potassium Chloride (K-Dur) 40 meq TID ORAL 04/08/20 09:45 07/07/20 09:44 04/12/20 09:20 Zinc Sulfate (Zinc Sulfate) 220 mg DAILY ORAL 04/07/20 12:15 07/06/20 12:14 04/12/20 09:20 Laboratory Tests 04/12/20 08:10: White Blood Count 12.4H, Red Blood Count 4.00L, Hemoglobin 12.3L, Hematocrit 35.1L, Mean Corpuscular Volume 88, Mean Corpuscular Hemoglobin 30.6, Mean Corpuscular Hemoglobin Concent 35.0, Red Cell Distribution Width 13.6, Platelet Count 552H, Mean Platelet Volume 6.0L, Neutrophils (%) (Auto) 80.7H, Lymphocytes (%) (Auto) 12.5L, Monocytes (%) (Auto) 6.1, Eosinophils (%) (Auto) 0.2, Basophils (%) (Auto) 0.6, Sodium Level 143, Potassium Level 3.6, Chloride Level 110H, Carbon Dioxide Level 26, Anion Gap 7, Blood Urea Nitrogen 10, Creatinine 0.8, Estimat Glomerular Filtration Rate > 60, Glucose Level 118H, Calcium Level 7.8L, Total Bilirubin 0.3, Aspartate Amino Transf (AST/SGOT) 32, Alanine A minotransferase (ALT/SGPT) 62, Alkaline Phosphatase 53, Total Protein 5.4L, Albumin 2.1L, Globulin 3.3, Albumin/Globulin Ratio 0.6L Height (Feet): 5 Height (Inches): 8.00 Weight (Pounds): 374 General Appearance: no apparent distress Objective No change Jamey Mar MD Apr 12, 2020 13:21
--- NOTE | 2020-04-12 14:42 | Surgery Progress Note ---
Surgery Progress Note Subjective Symptoms: improved, tolerating diet, passing flatus Objective Last 24 Hour Vital Signs Date Time Temp Pulse Resp B/P (MAP) Pulse Ox O2 Delivery O2 Flow Rate FiO2 04/12/20 12:00 98.7 71 20 138/67 (90) 96 04/12/20 09:00 Venturi Mask 14.0 04/12/20 08:46 72 20 97 Non-Rebreather 15.0 100 04/12/20 08:00 98 04/12/20 08:00 98.1 81 19 129/59 (82) 96 04/12/20 04:00 98.0 86 20 143/82 (102) 96 04/12/20 04:00 80 04/12/20 00:00 97.5 81 20 122/73 (89) 98 04/12/20 00:00 95 04/11/20 21:00 Venturi Mask 14.0 04/11/20 20:00 97.9 88 20 130/75 (93) 97 04/11/20 19:11 75 20 97 Non-Rebreather 15.0 100 04/11/20 16:00 97.7 89 22 143/72 (95) 96 04/11/20 16:00 97 I&O Intake and Output 04/11/20 04/12/20 19:00 07:00 Intake Total 1300 ml Output Total 1000 ml 1100 ml Balance 300 ml -1100 ml Intake Oral 600 ml IV Total 700 ml Output Urine Total 1000 ml 1100 ml Cardiovascular: RSR Respiratory: clear, decreased breath sounds Abdomen: soft, non-tender, present bowel sounds Extremities: no edema, no tenderness, no cyanosis Laboratory Tests Test 04/12/20 08:10 White Blood Count 12.4 K/UL (4.8-10.8) H Red Blood Count 4.00 M/UL (4.70-6.10) L Hemoglobin 12.3 G/DL (14.2-18.0) L Hematocrit 35.1 % (42.0-52.0) L Mean Corpuscular Volume 88 FL (80-99) Mean Corpuscular Hemoglobin 30.6 PG (27.0-31.0) Mean Corpuscular Hemoglobin Concent 35.0 G/DL (32.0-36.0) Red Cell Distribution Width 13.6 % (11.6-14.8) Platelet Count 552 K/UL (150-450) H Mean Platelet Volume 6.0 FL (6.5-10.1) L Neutrophils (%) (Auto) 80.7 % (45.0-75.0) H Lymphocytes (%) (Auto) 12.5 % (20.0-45.0) L Monocytes (%) (Auto) 6.1 % (1.0-10.0) Eosinophils (%) (Auto) 0.2 % (0.0-3.0) Basophils (%) (Auto) 0.6 % (0.0-2.0) Sodium Level 143 MMOL/L (136-145) Potassium Level 3.6 MMOL/L (3.5-5.1) Chloride Level 110 MMOL/L (98-107) H Carbon Dioxide Level 26 MMOL/L (21-32) Anion Gap 7 mmol/L (5-15) Blood Urea Nitrogen 10 mg/dL (7-18) Creatinine 0.8 MG/DL (0.55-1.30) Estimat Glomerular Filtration Rate > 60 mL/min (>60) Glucose Level 118 MG/DL (74-106) H Calcium Level 7.8 MG/DL (8.5-10.1) L Total Bilirubin 0.3 MG/DL (0.2-1.0) Aspartate Amino Transf (AST/SGOT) 32 U/L (15-37) Alanine Aminotransferase (ALT/SGPT) 62 U/L (12-78) Alkaline Phosphatase 53 U/L (46-116) Total Protein 5.4 G/DL (6.4-8.2) L Albumin 2.1 G/DL (3.4-5.0) L Globulin 3.3 g/dL Albumin/Globulin Ratio 0.6 (1.0-2.7) L Plan Problems: (1) Pneumomediastinum Assessment & Plan: 29M with covid, sob, noted to have extensive air neck, face, mediastinum. no trauma. no ptx etiology unknown. no abscess. afebrile, HD Stable, labs noted ?bleb tolerating diet no pain okay for diet will monitor clinically will cont work up etiology Lungs: There is been improvement in mild patchy diffuse bilateral pneumonia. Pleural space: Unremarkable. No pneumothorax. Heart: Unremarkable. No cardiomegaly. Mediastinum: There is been resolution of pneumomediastinum. Bones/joints: Unremarkable. IMPRESSION: 1. There is been improvement in mild patchy diffuse bilateral pneumonia. 2. There is been resolution of pneumomediastinum. Gas is seen within the deep fascial planes of the neck as well as superficially. Gas is seen in the retropharyngeal space extending from the level of the adenoids into the upper mediastinum, within the vascular space surrounding the carotid sheaths, within the right parapharyngeal space, surrounding the thyroid, in the lower neck anterior to the strap muscles and also adjacent and superficial to the left sternocleidomastoid. Some gas is also seen anterior to the upper medial pectoralis major muscle on the left and in the bilateral supraclavicular fossae. No focal fluid collection to suggest abscess demonstrated. No definite tracheal or esophageal wall defect is demonstrated. Gas also extends into the mediastinum and is described in more detail on separate chest CT report There are bilateral maxillary sinus polyps versus mucous retention cysts. There is evidence of dental disease with severe caries and periodontal changes involving the left second maxillary molar. No cervical mass or adenopathy demonstrated. The salivary glands are unremarkable. The visualized lungs demonstrate extensive pulmonary parenchymal disease. This is described on separate chest CT report. Impression: Extensive gas within the fascial planes of the neck, as described. Etiology not demonstrated. No evidence of fluid collection to suggest abscess Other findings as noted, including dental disease, bilateral maxillary sinus polyps versus mucous retention cysts (2) Dehydration (3) Hypokalemia (4) Diarrhea (5) Obesity (6) AZUCENA (acute kidney injury) (7) Hypoxemic respiratory failure, chronic (8) COVID-19 Leoncio Bryant Apr 12, 2020 14:42
[2020-04-12 16:00] VITALS: BP 125/74
[2020-04-12] MEDS: Enoxaparin 120 mg inj SUBQ SCH (17:00)
--- NOTE | 2020-04-12 17:45 | NUR ---
NURSE HAND-OFF REPORT: Important Events on Shift: wants to go home, unable to wean from mask to NC-pt was 94% on mask Patient Status: fc, stable Diet: cardiac Pending Orders: Pending Results/Labs: Pending MD notification: Latest Vital Signs: Temperature 96.8 , Pulse 94 , B/P 125 /74 , Respiratory Rate 20 , O2 SAT 95 , Venturi Mask, O2 Flow Rate 14.0 . Vital Sign Comment: EKG Rhythm: Sinus Rhythm Rhythm change?: N MD Notified?: N - MD Response: Latest Nunez Fall Score: 20 Fall Risk: Low Risk Safety Measures: Call light Within Reach, Bed Alarm Zone 2, Side Rails Side Rails x2, Bed position Low and Locked. Fall Precautions: Patient Fall Education Report to be given.
--- NOTE | 2020-04-12 17:50 | NUR ---
NURSE NOTES: Pt given prediabetic pt education. pt verbalized understanding.
[2020-04-12] MEDS: Azithromycin 250 MG in D5W 275 ML IV SCH (18:03)
--- NOTE | 2020-04-12 18:23 | NUR ---
NURSE NOTES: Pt titrated from 14 LPM 55% FiO2 venturi mask to 4LPM NC w/ humidifier. Pt saturating consistently 93-95% unlabored, even breathing. Pt expresses no s/s or complaints of SOB.
--- NOTE | 2020-04-12 19:20 | NUR ---
NURSE NOTES: The patient is alert and oriented x4 and very cooperative with his care.The patient is on 4LPM NC w/ humidifier well tolerated.He does not seem to be in hugo active distress at this time and his skin is intact.The patient has a left FA 22g that is patent and asymptomatic.The bed in low level, siderails up x2. will continue to monitor as indicated
[2020-04-12 20:00] VITALS: BP 106/50
[2020-04-13] VITALS: BP 110/57
--- NOTE | 2020-04-13 03:24 | NUR ---
NURSE NOTES: The patient is calm and stable and cooperative with his care. He remained alert and stable.will continue to monitor as indicated.
[2020-04-13 04:00] VITALS: BP 115/82
[2020-04-13] MEDS: Piperacillin/Tazobactam 3.375 GM in D5W 110 ML IVPB SCH ×3 (06:20→23:15)
--- NOTE | 2020-04-13 07:30 | NUR ---
NURSE HAND-OFF REPORT: Important Events on Shift:Alert and stable and is on 4 liters NC Patient Status: Diet: Pending Orders: Pending Results/Labs: Pending MD notification: Latest Vital Signs: Temperature 97.3 , Pulse 84 , B/P 115 /82 , Respiratory Rate 22 , O2 SAT 96 , Venturi Mask, O2 Flow Rate 14.0 . Vital Sign Comment: EKG Rhythm: Sinus Rhythm Rhythm change?: N MD Notified?: N - MD Response: Latest Nunez Fall Score: 20 Fall Risk: Low Risk Safety Measures: Call light Within Reach, Bed Alarm Zone 2, Side Rails Side Rails x2, Bed position Low and Locked. Fall Precautions: Patient Fall Education Report given to .
[2020-04-13 08:00] VITALS: BP 157/76
--- NOTE | 2020-04-13 08:00 | NUR ---
NURSE NOTES: pt in bed resting. food tray at bedside, he will eat soon. pt on plastics plater no signs of cardiac or respiratory distress at this. Pt does get tachycardic and SOB when he gets up and uses restroom. Bed is locked and in lowest position . Call light within reach. Will continue to monitor pt.
[2020-04-13 08:50] LABS: BASOPHILS % (AUTO) 0.8 % (0.0-2.0); EOSINOPHILS % (AUTO) 0.1 % (0.0-3.0); HEMATOCRIT 34.7 % (42.0-52.0); HEMOGLOBIN 12.3 G/DL (14.2-18.0); LYMPHOCYTES % (AUTO) 14.5 % (20.0-45.0); MEAN CORPUSCULAR VOLUME 85 FL (80-99); MONOCYTES % (AUTO) 6.5 % (1.0-10.0); PLATELET COUNT 577 K/UL (150-450); RED CELL DISTRIBUTION WIDTH 15.3 % (11.6-14.8); WHITE BLOOD COUNT 11.4 K/UL (4.8-10.8)
[2020-04-13 09:21] LABS: ANION GAP 3 mmol/L (5-15); BLOOD UREA NITROGEN 10 mg/dL (7-18); CALCIUM 8.2 MG/DL (8.5-10.1); CARBON DIOXIDE 30 MMOL/L (21-32); CHLORIDE 106 MMOL/L (98-107); FERRITIN 827 NG/ML (8-388); POTASSIUM 4.5 MMOL/L (3.5-5.1); SODIUM 139 MMOL/L (136-145)
--- NOTE | 2020-04-13 10:09 | Pulmonology Progress Note ---
Subjective ROS Limited/Unobtainable: No Constitutional: Denies: fever Gastrointestinal/Abdominal: Denies: nausea, vomiting, diarrhea Psychiatric: Denies: depression Skin: Denies: rash Musculoskeletal: Denies: pain Allergies: Coded Allergies: No Known Allergies (Unverified , 03/06/19) Subjective weaned to O2 via NC feeling better no fevers, denies chest pain mild leuk, likely due to steroids CXR 04/09 better, pneumomediastinum resolved CXR 04/11 - Interval worsening of bilateral multifocal pneumonia. deconditioned: becomes tachycardic while ambulating Objective Last 24 Hour Vital Signs Date Time Temp Pulse Resp B/P (MAP) Pulse Ox O2 Delivery O2 Flow Rate FiO2 04/13/20 04:00 84 04/13/20 04:00 97.3 90 22 115/82 (93) 96 04/13/20 00:00 72 04/13/20 00:00 97.5 93 22 110/57 (74) 95 04/12/20 21:00 Venturi Mask 14.0 04/12/20 20:17 96 Venturi Mask 14.0 55 04/12/20 20:00 93 04/12/20 20:00 97.5 94 22 106/50 (68) 95 04/12/20 16:00 96.8 95 20 125/74 (91) 95 04/12/20 16:00 94 04/12/20 12:00 98.7 71 20 138/67 (90) 96 04/12/20 12:00 98 Intake and Output 04/12/20 04/13/20 19:00 07:00 Intake Total 1620 ml 250 ml Output Total 1000 ml 850 ml Balance 620 ml -600 ml Intake Oral 1600 ml IV Total 20 ml 250 ml Output Urine Total 1000 ml 850 ml # Voids 5 4 Objective General Appearance: young obese male on O2 via NC , in NAD Lines, tubes and drains: peripheral HEENT: normocephalic, atraumatic, anicteric, PERRL Neck: non-tender, supple Respiratory/Chest: no accessory muscle use, few isolated rhonchi BL Cardiovascular/Chest: normal rate, regular rhythm Abdomen: normal bowel sounds, non tender, soft, obese Extremities: normal range of motion, non-tender, no calf tenderness, normal capillary refill Skin Exam: warm/dry 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, no motor/sensory deficits, alert, oriented x 3, responsive Musculoskeletal: normal muscle bulk Laboratory Tests 04/13/20 08:10: White Blood Count 11.4H, Red Blood Count 4.10L, Hemoglobin 12.3L, Hematocrit 34.7L, Mean Corpuscular Volume 85, Mean Corpuscular Hemoglobin 29.9, Mean Corpuscular Hemoglobin Concent 35.3, Red Cell Distribution Width 15.3H, Platelet Count 577H, Mean Platelet Volume 5.8L, Neutrophils (%) (Auto) 78.0H, Lymphocytes (%) (Auto) 14.5L, Monocytes (%) (Auto) 6.5, Eosinophils (%) (Auto) 0.1, Basophils (%) (Auto) 0.8, Sodium Level 139, Potassium Level 4.5, Chloride Level 106, Carbon Dioxide Level 30, Anion Gap 3L, Blood Urea Nitrogen 10, Creatinine 1.0, Estimat Glomerular Filtration Rate > 60, Glucose Level 83, Calcium Level 8.2L, Ferritin 827H, C-Reactive Protein, Quantitative 4.0H Current Medications Medications (Trade) Dose Ordered Sig/Bernard Route PRN Reason Start Time Stop Time Status Last Admin Dose Admin Albuterol Sulfate (Proventil MDI) 2 puff Q4H PRN INH Shortness of Breath 04/07/20 12:00 07/06/20 11:59 Ascorbic Acid (Vitamin C) 500 mg TWICE A DAY ORAL 04/07/20 18:00 05/07/20 17:59 04/12/20 18:03 Azithromycin 250 mg/Dextrose 275 ml @ 275 mls/hr Q24HRS IV 04/08/20 18:00 04/13/20 17:59 04/12/20 18:03 Dexamethasone Sodium Phosphate (Decadron 4mg/ml vial) 6 mg DAILY IVP 04/12/20 09:00 04/17/20 09:01 04/12/20 09:22 Docusate Sodium (Colace) 100 mg TWICE A DAY ORAL 04/07/20 18:00 05/07/20 17:59 04/12/20 18:03 Enoxaparin Sodium (Lovenox) 120 mg Q24H SUBQ 04/07/20 17:00 07/06/20 16:59 04/12/20 17:00 Pantoprazole (Protonix) 40 mg DAILY ORAL 04/08/20 09:00 05/08/20 08:59 04/12/20 09:20 Piperacillin Sod/ Tazobactam Sod 3.375 gm/Dextrose 110 ml @ 27.5 mls/hr EVERY 8 HOURS IVPB 04/11/20 22:00 04/16/20 21:59 04/13/20 06:20 Potassium Chloride/Sodium Chloride 1,000 ml @ 50 mls/hr Q20H IV 04/07/20 13:00 05/07/20 12:59 04/12/20 03:32 Potassium Chloride (K-Dur) 40 meq TID ORAL 04/08/20 09:45 07/07/20 09:44 04/12/20 18:03 Zinc Sulfate (Zinc Sulfate) 220 mg DAILY ORAL 04/07/20 12:15 07/06/20 12:14 04/12/20 09:20 Assessment/Plan Assessment/Plan ASSESSMENT Acute hypoxemic respiratory failure requiring nonrebreather mask COVID pneumonia Pneumomediastinum, - likely due to coughing, no PTX -resolved Morbid obesity Electrolyte imbalance: hypo Na, hypo K, hypo Mg Elevated LFT Elevated CK, possible rhabdo AZUCENA -resolved PLAN OF CARE tele O2 titrate to keep sat above 92% ; down to VM 14 L/min titrate further as tolerated ( apparently no high flow O2 in this facility as per RT now available) closely monitor oxygenation and resp status encourage patient to maintain a prone position as much as possible MDI Albuterol prn steroids [id number], remdesivir x 5 days ( completed 04/11) abx as per ID recs fup CXR 04/09 -> improvement in mild patchy diffuse bilateral pneumonia. Resolution of pneumomediastinum. CXR 04/12-> Interval worsening of bilateral multifocal pneumonia. fup inflammatory markers:initial: ferritin > 2000, CRP 36,8, D dimer 2.01, LDH 1495-, IL 6 pending - ferritin and CRP with small trend down, IL6 not sent, apparently not performing for send out any more at this facility a/c with Lovenox/prophylaxis dose vit C and zinc initial CXR ->Bilateral infiltrates, suspicious for bilateral pneumonia, quite possibly Evidence of soft tissue gas within the fascial planes of the neck as well as soft tissue gas within the left supraclavicular fossa CT chest-> Bilateral diffuse and extensive infiltrates, most likely due to pneumonia, Pneumomediastinum. No evidence of pneumothorax on fup CXR 04/[address] neck -> Extensive gas within the fascial planes of the neck, as described. Etiology not demonstrated. No evidence of fluid collection to suggest abscess Other findings included dental disease, bilateral maxillary sinus polyps versus mucous retention cysts however CXR 04/12 with worsening of bilateral multifocal pneumonia. off IVF nephro follows monitor renal parameters, LFT, CK trending down, AST and total bili down [id number] prediabetes., no concentrated sweets diet lipid panel stable supportive care RT to titrate O2 to keep sat > 92%, can't go home if hypoxic and O2 dependent slow improvement encourage ambulation in the room ( deconditioned and gets very tachycardic 130- 140 while ambulating in the room) case discussed and evaluated by supervising physician Mariela Dover NP Apr 13, 2020 10:09 Eleuterio Shipley MD Apr 13, 2020 17:16
--- NOTE | 2020-04-13 10:42 | Nephrology Progress Note ---
Assessment/Plan Problem List: (1) AZUCENA (acute kidney injury) (2) Hypokalemia (3) Dehydration (4) Diarrhea (5) Obesity (6) Hypoxemic respiratory failure, chronic (7) COVID-19 Assessment Acute hypoxemic respiratory failure requiring cardioversion nonrebreather mask COVID pneumonia Morbid obesity Electrolyte imbalance: hypo Na, hypo K, hypo Mg Elevated LFT Elevated CK, possible rhabdo AZUCENA Plan April 13: Labs reviewed. Medication list reviewed. Renal parameters and electrolytes stable. April 12: Labs reviewed reviewed. Remains stable from renal standpoint of view. Continue per consultants. April 11: Labs reviewed. Stable from renal standpoint of view. Continue per consultants. April 10: Labs reviewed. Electrolytes within normal range. Continue per consultants. Not much to add from renal standpoint of view. April 09: Labs reviewed. Stable from renal standpoint of view. Continue per PMD and consultants. April 08: Labs reviewed. Serum sodium improved. Low potassium replaced. Serum creatinine lowered. Meds reviewed. Receiving treatment for COVID-19. Continue to monitor renal parameters and electrolytes. Subjective ROS Limited/Unobtainable: No Constitutional: Reports: malaise Objective Objective Last 24 Hour Vital Signs Date Time Temp Pulse Resp B/P (MAP) Pulse Ox O2 Delivery O2 Flow Rate FiO2 04/13/20 04:00 84 04/13/20 04:00 97.3 90 22 115/82 (93) 96 04/13/20 00:00 72 04/13/20 00:00 97.5 93 22 110/57 (74) 95 04/12/20 21:00 Venturi Mask 14.0 04/12/20 20:17 96 Venturi Mask 14.0 55 04/12/20 20:00 93 04/12/20 20:00 97.5 94 22 106/50 (68) 95 04/12/20 16:00 96.8 95 20 125/74 (91) 95 04/12/20 16:00 94 04/12/20 12:00 98.7 71 20 138/67 (90) 96 04/12/20 12:00 98 Intake and Output 04/12/20 04/13/20 19:00 07:00 Intake Total 1620 ml 250 ml Output Total 1000 ml 850 ml Balance 620 ml -600 ml Intake Oral 1600 ml IV Total 20 ml 250 ml Output Urine Total 1000 ml 850 ml # Voids 5 4 Current Medications Medications (Trade) Dose Ordered Sig/Bernard Route PRN Reason Start Time Stop Time Status Last Admin Dose Admin Albuterol Sulfate (Proventil MDI) 2 puff Q4H PRN INH Shortness of Breath 04/07/20 12:00 07/06/20 11:59 Ascorbic Acid (Vitamin C) 500 mg TWICE A DAY ORAL 04/07/20 18:00 05/07/20 17:59 04/12/20 18:03 Azithromycin 250 mg/Dextrose 275 ml @ 275 mls/hr Q24HRS IV 04/08/20 18:00 04/13/20 17:59 04/12/20 18:03 Dexamethasone Sodium Phosphate (Decadron 4mg/ml vial) 6 mg DAILY IVP 04/12/20 09:00 04/17/20 09:01 04/12/20 09:22 Docusate Sodium (Colace) 100 mg TWICE A DAY ORAL 04/07/20 18:00 05/07/20 17:59 04/12/20 18:03 Enoxaparin Sodium (Lovenox) 120 mg Q24H SUBQ 04/07/20 17:00 07/06/20 16:59 04/12/20 17:00 Pantoprazole (Protonix) 40 mg DAILY ORAL 04/08/20 09:00 05/08/20 08:59 04/12/20 09:20 Piperacillin Sod/ Tazobactam Sod 3.375 gm/Dextrose 110 ml @ 27.5 mls/hr EVERY 8 HOURS IVPB 04/11/20 22:00 04/16/20 21:59 04/13/20 06:20 Potassium Chloride/Sodium Chloride 1,000 ml @ 50 mls/hr Q20H IV 04/07/20 13:00 05/07/20 12:59 04/12/20 03:32 Potassium Chloride (K-Dur) 40 meq TID ORAL 04/08/20 09:45 07/07/20 09:44 04/12/20 18:03 Zinc Sulfate (Zinc Sulfate) 220 mg DAILY ORAL 04/07/20 12:15 07/06/20 12:14 04/12/20 09:20 Laboratory Tests 04/13/20 08:10: White Blood Count 11.4H, Red Blood Count 4.10L, Hemoglobin 12.3L, Hematocrit 34.7L, Mean Corpuscular Volume 85, Mean Corpuscular Hemoglobin 29.9, Mean Corpuscular Hemoglobin Concent 35.3, Red Cell Distribution Width 15.3H, Platelet Count 577H, Mean Platelet Volume 5.8L, Neutrophils (%) (Auto) 78.0H, Lymphocytes (%) (Auto) 14.5L, Monocytes (%) (Auto) 6.5, Eosinophils (%) (Auto) 0.1, Basophils (%) (Auto) 0.8, Sodium Level 139, Potassium Level 4.5, Chloride Level 106, Carbon Dioxide Level 30, Anion Gap 3L, Blood Urea Nitrogen 10, Creatinine 1.0, Estimat Glomerular Filtration Rate > 60, Glucose Level 83, Calcium Level 8.2L, Ferritin 827H, C-Reactive Protein, Quantitative 4.0H Height (Feet): 5 Height (Inches): 8.00 Weight (Pounds): 374 General Appearance: no apparent distress Objective No change Jamey Mar MD Apr 13, 2020 10:42
[2020-04-13] MEDS: Zinc Sulfate 220mg ORAL SCH (11:05)
[2020-04-13] MEDS: Ascorbic Acid 500mg tab ORAL SCH ×2 (11:05→18:36)
[2020-04-13] MEDS: Docusate 100mg cap ORAL SCH ×2 (11:05→18:36)
[2020-04-13 12:00] VITALS: BP 127/67
--- NOTE | 2020-04-13 13:04 | Surgery Progress Note ---
Surgery Progress Note Subjective Additional Comments states he feels much better wants to go home soon lab snoted cxr noted ambulatory Objective Last 24 Hour Vital Signs Date Time Temp Pulse Resp B/P (MAP) Pulse Ox O2 Delivery O2 Flow Rate FiO2 04/13/20 09:00 Non-Rebreather 4.0 04/13/20 08:00 97.7 68 18 157/76 (103) 96 04/13/20 04:00 84 04/13/20 04:00 97.3 90 22 115/82 (93) 96 04/13/20 00:00 72 04/13/20 00:00 97.5 93 22 110/57 (74) 95 04/12/20 21:00 Venturi Mask 14.0 04/12/20 20:17 96 Venturi Mask 14.0 55 04/12/20 20:00 93 04/12/20 20:00 97.5 94 22 106/50 (68) 95 04/12/20 16:00 96.8 95 20 125/74 (91) 95 04/12/20 16:00 94 I&O Intake and Output 04/12/20 04/13/20 19:00 07:00 Intake Total 1620 ml 250 ml Output Total 1000 ml 850 ml Balance 620 ml -600 ml Intake Oral 1600 ml IV Total 20 ml 250 ml Output Urine Total 1000 ml 850 ml # Voids 5 4 Cardiovascular: RSR Respiratory: clear Abdomen: soft, non-tender, present bowel sounds, non-distended Extremities: no edema, no tenderness, no cyanosis Laboratory Tests Test 04/13/20 08:10 White Blood Count 11.4 K/UL (4.8-10.8) H Red Blood Count 4.10 M/UL (4.70-6.10) L Hemoglobin 12.3 G/DL (14.2-18.0) L Hematocrit 34.7 % (42.0-52.0) L Mean Corpuscular Volume 85 FL (80-99) Mean Corpuscular Hemoglobin 29.9 PG (27.0-31.0) Mean Corpuscular Hemoglobin Concent 35.3 G/DL (32.0-36.0) Red Cell Distribution Width 15.3 % (11.6-14.8) H Platelet Count 577 K/UL (150-450) H Mean Platelet Volume 5.8 FL (6.5-10.1) L Neutrophils (%) (Auto) 78.0 % (45.0-75.0) H Lymphocytes (%) (Auto) 14.5 % (20.0-45.0) L Monocytes (%) (Auto) 6.5 % (1.0-10.0) Eosinophils (%) (Auto) 0.1 % (0.0-3.0) Basophils (%) (Auto) 0.8 % (0.0-2.0) Sodium Level 139 MMOL/L (136-145) Potassium Level 4.5 MMOL/L (3.5-5.1) Chloride Level 106 MMOL/L (98-107) Carbon Dioxide Level 30 MMOL/L (21-32) Anion Gap 3 mmol/L (5-15) L Blood Urea Nitrogen 10 mg/dL (7-18) Creatinine 1.0 MG/DL (0.55-1.30) Estimat Glomerular Filtration Rate > 60 mL/min (>60) Glucose Level 83 MG/DL (74-106) Calcium Level 8.2 MG/DL (8.5-10.1) L Ferritin 827 NG/ML (8-388) H C-Reactive Protein, Quantitative 4.0 mg/dL (0.00-0.90) H Plan Problems: (1) Pneumomediastinum Assessment & Plan: 29M with covid, sob, noted to have extensive air neck, face, mediastinum. no trauma. no ptx etiology unknown. no abscess. afebrile, HD Stable, labs noted ?bleb tolerating diet no pain okay for diet will monitor clinically will cont work up etiology Lungs: There is been improvement in mild patchy diffuse bilateral pneumonia. Pleural space: Unremarkable. No pneumothorax. Heart: Unremarkable. No cardiomegaly. Mediastinum: There is been resolution of pneumomediastinum. Bones/joints: Unremarkable. IMPRESSION: 1. There is been improvement in mild patchy diffuse bilateral pneumonia. 2. There is been resolution of pneumomediastinum. Gas is seen within the deep fascial planes of the neck as well as superficially. Gas is seen in the retropharyngeal space extending from the level of the adenoids into the upper mediastinum, within the vascular space surrounding the carotid sheaths, within the right parapharyngeal space, surrounding the thyroid, in the lower neck anterior to the strap muscles and also adjacent and superficial to the left sternocleidomastoid. Some gas is also seen anterior to the upper medial pectoralis major muscle on the left and in the bilateral supraclavicular fossae. No focal fluid collection to suggest abscess demonstrated. No definite tracheal or esophageal wall defect is demonstrated. Gas also extends into the mediastinum and is described in more detail on separate chest CT report There are bilateral maxillary sinus polyps versus mucous retention cysts. There is evidence of dental disease with severe caries and periodontal changes involving the left second maxillary molar. No cervical mass or adenopathy demonstrated. The salivary glands are unremarkable. The visualized lungs demonstrate extensive pulmonary parenchymal disease. This is described on separate chest CT report. Impression: Extensive gas within the fascial planes of the neck, as described. Etiology not demonstrated. No evidence of fluid collection to suggest abscess Other findings as noted, including dental disease, bilateral maxillary sinus polyps versus mucous retention cysts (2) Dehydration (3) Hypokalemia (4) Diarrhea (5) Obesity (6) AZUCENA (acute kidney injury) (7) Hypoxemic respiratory failure, chronic (8) COVID-19 ZoltanjinnyjamesonofeLeoncio Apr 13, 2020 13:04
--- NOTE | 2020-04-13 13:28 | Diagnostic Imaging Report ---
Indication: Shortness of breath Technique: One view of the chest Comparison: 04/12/2020 Findings: Bilateral infiltrates are unchanged. The heart size is normal. Impression: Unchanged, over one day, findings as above.
--- NOTE | 2020-04-13 14:34 | NUR ---
CASE MANAGEMENT:REVIEW 04/13/20 SI: COVID PNA 97.7 68 18 157/76 96% ON 4L NRB WBC+11.4 H/H-12.3/34.7 IS: IV DECADRON QD LOVENOX SQ Q24 IV AZITHROMYCIN Q24 IV ZOSYN Q8HRS IVF+KCL@50/HR : TELEMETRY STATUS DCP: FROM HOME PLAN: COMPLETED REMDESIVIR CONTINUE TO SLOWLY WEAN OXYGEN
[2020-04-13 16:00] VITALS: BP_SYST 132; BP_SYST 157; BP_DIAS 76; BP_DIAS 98
--- NOTE | 2020-04-13 17:54 | Infectious Diseases Prog Note ---
Assessment/Plan Assessment/Plan ASSESSMENT AND PLAN: 1. covid-19 infection, pna, , ? cap, ? gas in neck, ? pneumomediastinum - zosyn, day # , discontinue azithromycin - s/p remdesivir - dexamethasone - day # 7 - monitor labs - monitor hypoxia, clinically improved, less O2 requirement - chest x-ray - improved 2. Obesity. 3. Elevated creatinine. 4. pmh o/w negative 5. No known allergies. 6. Social history is negative. 7. Family history is noncontributory. 8. Case was discussed with RN. 9. Case was discussed with Mariela Dover, nurse practitioner for Dr. Shipley. Subjective Constitutional: Reports: fatigue; Denies: fever HEENT: Denies: congestion Respiratory: Denies: shortness of breath Cardiovascular: Denies: chest pain Gastrointestinal/Abdominal: Denies: nausea, vomiting, diarrhea Genitourinary: Reports: other - no amaral Neurologic: Denies: headache Psychiatric: Denies: depression Endocrine: Denies: other Musculoskeletal: Denies: pain Allergies: Coded Allergies: No Known Allergies (Unverified , 03/06/19) Objective Last 24 Hour Vital Signs Date Time Temp Pulse Resp B/P (MAP) Pulse Ox O2 Delivery O2 Flow Rate FiO2 04/13/20 12:00 103 22 127/67 (87) 92 04/13/20 12:00 100 04/13/20 09:00 Non-Rebreather 4.0 04/13/20 08:00 97.7 68 18 157/76 (103) 96 04/13/20 08:00 72 04/13/20 04:00 84 04/13/20 04:00 97.3 90 22 115/82 (93) 96 04/13/20 00:00 72 04/13/20 00:00 97.5 93 22 110/57 (74) 95 04/12/20 21:00 Venturi Mask 14.0 04/12/20 20:17 96 Venturi Mask 14.0 55 04/12/20 20:00 93 04/12/20 20:00 97.5 94 22 106/50 (68) 95 Height (Feet): 5 Height (Inches): 8.00 Weight (Pounds): 374 General Appearance: no acute distress HEENT: normocephalic Respiratory/Chest: no respiratory distress, crackles/rales, rhonchi - bilaterally Cardiovascular: normal rate, regular rhythm Abdomen: normal bowel sounds, no organomegaly, non distended Genitourinary: other - no amaral Extremities: no cyanosis Skin: no rash 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 COMPARISON: 2 days prior FINDINGS: Lungs: There is been improvement in mild patchy diffuse bilateral pneumonia. Pleural space: Unremarkable. No pneumothorax. Heart: Unremarkable. No cardiomegaly. Mediastinum: There is been resolution of pneumomediastinum. Bones/joints: Unremarkable. IMPRESSION: 1. There is been improvement in mild patchy diffuse bilateral pneumonia. 2. There is been resolution of pneumomediastinum. Chest x-ray - 04/13/20 - Procedure: XRAY Chest 1v Indication: Shortness of breath Technique: One view of the chest Comparison: 04/12/2020 Findings: Bilateral infiltrates are unchanged. The heart size is normal. Impression: Unchanged, over one day, findings as above. Dictated By: Microbiology Date/Time Source Procedure Growth Status 04/07/20 10:30 Urine,Clean Catch Urine Culture - Final NO GROWTH AFTER 48 HOURS Complete 04/07/20 09:46 Nasal Nares Right - Final Complete 04/07/20 09:46 Nasal Nares Right - Final Complete 04/07/20 09:20 Blood Blood Culture - Preliminary NO GROWTH AFTER 4 DAYS Resulted Laboratory Tests Test 04/13/20 08:10 White Blood Count 11.4 K/UL (4.8-10.8) H Red Blood Count 4.10 M/UL (4.70-6.10) L Hemoglobin 12.3 G/DL (14.2-18.0) L Hematocrit 34.7 % (42.0-52.0) L Mean Corpuscular Volume 85 FL (80-99) Mean Corpuscular Hemoglobin 29.9 PG (27.0-31.0) Mean Corpuscular Hemoglobin Concent 35.3 G/DL (32.0-36.0) Red Cell Distribution Width 15.3 % (11.6-14.8) H Platelet Count 577 K/UL (150-450) H Mean Platelet Volume 5.8 FL (6.5-10.1) L Neutrophils (%) (Auto) 78.0 % (45.0-75.0) H Lymphocytes (%) (Auto) 14.5 % (20.0-45.0) L Monocytes (%) (Auto) 6.5 % (1.0-10.0) Eosinophils (%) (Auto) 0.1 % (0.0-3.0) Basophils (%) (Auto) 0.8 % (0.0-2.0) Sodium Level 139 MMOL/L (136-145) Potassium Level 4.5 MMOL/L (3.5-5.1) Chloride Level 106 MMOL/L (98-107) Carbon Dioxide Level 30 MMOL/L (21-32) Anion Gap 3 mmol/L (5-15) L Blood Urea Nitrogen 10 mg/dL (7-18) Creatinine 1.0 MG/DL (0.55-1.30) Estimat Glomerular Filtration Rate > 60 mL/min (>60) Glucose Level 83 MG/DL (74-106) Calcium Level 8.2 MG/DL (8.5-10.1) L Ferritin 827 NG/ML (8-388) H C-Reactive Protein, Quantitative 4.0 mg/dL (0.00-0.90) H Current Medications Medications (Trade) Dose Ordered Sig/Bernard Route PRN Reason Start Time Stop Time Status Last Admin Dose Admin Albuterol Sulfate (Proventil MDI) 2 puff Q4H PRN INH Shortness of Breath 04/07/20 12:00 07/06/20 11:59 Ascorbic Acid (Vitamin C) 500 mg TWICE A DAY ORAL 04/07/20 18:00 05/07/20 17:59 04/13/20 11:05 Azithromycin 250 mg/Dextrose 275 ml @ 275 mls/hr Q24HRS IV 04/08/20 18:00 04/13/20 17:59 04/12/20 18:03 Dexamethasone Sodium Phosphate (Decadron 4mg/ml vial) 6 mg DAILY IVP 04/12/20 09:00 04/17/20 09:01 04/13/20 11:05 Docusate Sodium (Colace) 100 mg TWICE A DAY ORAL 04/07/20 18:00 05/07/20 17:59 04/13/20 11:05 Enoxaparin Sodium (Lovenox) 120 mg Q24H SUBQ 04/07/20 17:00 07/06/20 16:59 04/12/20 17:00 Pantoprazole (Protonix) 40 mg DAILY ORAL 04/08/20 09:00 05/08/20 08:59 04/13/20 11:05 Piperacillin Sod/ Tazobactam Sod 3.375 gm/Dextrose 110 ml @ 27.5 mls/hr EVERY 8 HOURS IVPB 04/11/20 22:00 04/16/20 21:59 04/13/20 13:56 Potassium Chloride/Sodium Chloride 1,000 ml @ 50 mls/hr Q20H IV 04/07/20 13:00 05/07/20 12:59 04/12/20 03:32 Potassium Chloride (K-Dur) 40 meq TID ORAL 04/08/20 09:45 07/07/20 09:44 04/13/20 13:50 Zinc Sulfate (Zinc Sulfate) 220 mg DAILY ORAL 04/07/20 12:15 07/06/20 12:14 04/13/20 11:05 Dennis Foy MD Apr 13, 2020 17:53
[2020-04-13] MEDS: Enoxaparin 120 mg inj SUBQ SCH (18:36)
--- NOTE | 2020-04-13 19:20 | NUR ---
NURSE NOTES: Patient received from WILLIAM Hutchinson. Patient is alert, awake, and oriented x 4. Patient is currently watching a TV show using his laptop. Patient is able to verbalize his needs and follow command. Patient is on 4 L nasal cannula with a humidifier with no signs of respiratory distress. Patient has an IV on his left wrist 22 gauge, patent and flushed. Bed is in the lowest position and locked, call light within reach. Will continue to monitor.
[2020-04-13 20:00] VITALS: BP 106/65
--- NOTE | 2020-04-13 20:18 | NUR ---
NURSE HAND-OFF REPORT: Important Events on Shift:[] pt to use IS at least 10times/ hr, he is compliant. Patient Status: []full Diet: []Cardiac Pending Orders: [] Pending Results/Labs:[] Pending MD notification:[] Latest Vital Signs: Temperature 97.7 , Pulse 98 , B/P 132 /98 , Respiratory Rate 18 , O2 SAT 92 , Non-Rebreather, O2 Flow Rate 4.0 . Vital Sign Comment: [] EKG Rhythm: Sinus Rhythm Rhythm change?: N MD Notified?: N - MD Response: Latest Nunez Fall Score: 20 Fall Risk: Low Risk Safety Measures: Call light Within Reach, Bed Alarm Zone 2, Side Rails Side Rails x2, Bed position Low and Locked. Fall Precautions: y Patient Fall Education y Report given to Jenna/RN[].
[2020-04-13] MEDS: NS w/KCl 20mEq 1000ml 1,000 ML IV SCH (20:22)
[2020-04-14] VITALS (7 sets, daily range): BP systolic 100–122; BP diastolic 55–79
[2020-04-14] MEDS: Piperacillin/Tazobactam 3.375 GM in D5W 110 ML IVPB SCH ×3 (07:00→21:43)
--- NOTE | 2020-04-14 07:10 | NUR ---
NURSE NOTES: Received patient report from WILLIAM West. Patient is alert and oriented x4, in bed at this time. Pt on NC @4L, Breathing is even and unlabored with no signs of respiratory distress at this time. Patient denies pain or discomfort at this time. Patient has L 20G IV on wrist patent and intact with no signs of infection or infiltration at this time. Bed on lowest position locked with side rails 2x up. Call light within reach .
--- NOTE | 2020-04-14 07:20 | NUR ---
NURSE HAND-OFF REPORT: Important Events on Shift:[Patient able to walk now without having shortness of breath.] Patient Status: [Stable] Diet: [Cardiac diet] Pending Orders: [] Pending Results/Labs:[] Pending MD notification:[] Latest Vital Signs: Temperature 97.1 , Pulse 88 , B/P 100 /55 , Respiratory Rate 22 , O2 SAT 97 , Non-Rebreather, O2 Flow Rate 4.0 . Vital Sign Comment: [] EKG Rhythm: Sinus Tachycardia Rhythm change?: Y MD Notified?: N - MD Response: Latest Nunez Fall Score: 20 Fall Risk: Low Risk Safety Measures: Call light Within Reach, Bed Alarm Zone 2, Side Rails Side Rails x2, Bed position Low and Locked. Fall Precautions: Patient Fall Education Report given to [WILLIAM Dwyer].
[2020-04-14 07:23] LABS: BASOPHILS % (AUTO) 0.9 % (0.0-2.0); HEMATOCRIT 34.9 % (42.0-52.0); HEMOGLOBIN 12.4 G/DL (14.2-18.0); LYMPHOCYTES % (AUTO) 13.9 % (20.0-45.0); MEAN CORPUSCULAR VOLUME 87 FL (80-99); NEUTROPHILS % (AUTO) 78.2 % (45.0-75.0); PLATELET COUNT 554 K/UL (150-450); RED BLOOD COUNT 4.04 M/UL (4.70-6.10); RED CELL DISTRIBUTION WIDTH 14.6 % (11.6-14.8); WHITE BLOOD COUNT 11.8 K/UL (4.8-10.8)
[2020-04-14 08:05] LABS: ALANINE AMINOTRANSFERASE 70 U/L (12-78); ALBUMIN 2.3 G/DL (3.4-5.0); ALBUMIN/GLOBULIN RATIO 0.7 (1.0-2.7); ALKALINE PHOSPHATASE 68 U/L (46-116); ANION GAP 5 mmol/L (5-15); ASPARTATE AMINO TRANSFERASE 30 U/L (15-37); BILIRUBIN,TOTAL 0.3 MG/DL (0.2-1.0); BLOOD UREA NITROGEN 13 mg/dL (7-18); CALCIUM 8.5 MG/DL (8.5-10.1); CARBON DIOXIDE 29 MMOL/L (21-32); CHLORIDE 106 MMOL/L (98-107); CREATININE 1.1 MG/DL (0.55-1.30); POTASSIUM 4.6 MMOL/L (3.5-5.1); SODIUM 140 MMOL/L (136-145)
[2020-04-14] MEDS: Docusate 100mg cap ORAL SCH ×2 (09:03→17:24)
[2020-04-14] MEDS: Ascorbic Acid 500mg tab ORAL SCH ×2 (09:03→17:24)
[2020-04-14] MEDS: Zinc Sulfate 220mg ORAL SCH (09:03)
--- NOTE | 2020-04-14 09:06 | Pulmonology Progress Note ---
Subjective ROS Limited/Unobtainable: No Constitutional: Reports: fatigue; Denies: fever Gastrointestinal/Abdominal: Denies: nausea, vomiting, diarrhea Psychiatric: Denies: depression Skin: Denies: rash Musculoskeletal: Denies: pain Allergies: Coded Allergies: No Known Allergies (Unverified , 03/06/19) Subjective weaned to O2 via NC feeling better no fevers, denies chest pain mild leuk, likely due to steroids CXR 04/11 - Interval worsening of bilateral multifocal pneumonia. however very deconditioned: becomes tachycardic and SOB while ambulating in the room Objective Last 24 Hour Vital Signs Date Time Temp Pulse Resp B/P (MAP) Pulse Ox O2 Delivery O2 Flow Rate FiO2 04/14/20 04:00 97.1 88 22 100/55 (70) 97 04/14/20 00:00 96.8 99 20 105/63 (77) 97 04/14/20 00:00 67 04/13/20 21:00 Non-Rebreather 4.0 04/13/20 20:38 90 17 95 Nasal Cannula 4.0 36 04/13/20 20:36 95 Nasal Cannula 4.0 36 04/13/20 20:00 97.2 98 18 106/65 (79) 94 04/13/20 20:00 102 04/13/20 16:00 97.7 98 18 132/98 (109) 92 04/13/20 16:00 98 04/13/20 12:00 103 22 127/67 (87) 92 04/13/20 12:00 100 Intake and Output 04/13/20 04/14/20 19:00 07:00 Intake Total 1900 ml 1000 ml Output Total 1750 ml Balance 150 ml 1000 ml Intake Oral 1900 ml 1000 ml Output Urine Total 1750 ml # Voids 5 4 # Bowel Movements 2 1 Objective General Appearance: young obese male on O2 via NC , in NAD Lines, tubes and drains: peripheral HEENT: normocephalic, atraumatic, anicteric, PERRL Neck: non-tender, supple Respiratory/Chest: no accessory muscle use, few isolated rhonchi BL Cardiovascular/Chest: normal rate, regular rhythm Abdomen: normal bowel sounds, non tender, soft, obese Extremities: normal range of motion, non-tender, no calf tenderness, normal capillary refill Skin Exam: warm/dry 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, no motor/sensory deficits, alert, oriented x 3, responsive Musculoskeletal: normal muscle bulk Laboratory Tests 04/14/20 07:00: White Blood Count 11.8H, Red Blood Count 4.04L, Hemoglobin 12.4L, Hematocrit 34.9L, Mean Corpuscular Volume 87, Mean Corpuscular Hemoglobin 30.8, Mean Corpuscular Hemoglobin Concent 35.6, Red Cell Distribution Width 14.6, Platelet Count 554H, Mean Platelet Volume 5.7L, Neutrophils (%) (Auto) 78.2H, Lymphocytes (%) (Auto) 13.9L, Monocytes (%) (Auto) 7.0, Eosinophils (%) (Auto) 0.0, Basophil s (%) (Auto) 0.9, Sodium Level 140, Potassium Level 4.6, Chloride Level 106, Carbon Dioxide Level 29, Anion Gap 5, Blood Urea Nitrogen 13, Creatinine 1.1, Estimat Glomerular Filtration Rate > 60, Glucose Level 133H, Calcium Level 8.5, Total Bilirubin 0.3, Aspartate Amino Transf (AST/SGOT) 30, Alanine Aminotransferase (ALT/SGPT) 70, Alkaline Phosphatase 68, Total Protein 5.7L, Albumin 2.3L, Globulin 3.4, Albumin/Globulin Ratio 0.7L Current Medications Medications (Trade) Dose Ordered Sig/Bernard Route PRN Reason Start Time Stop Time Status Last Admin Dose Admin Albuterol Sulfate (Proventil MDI) 2 puff Q4H PRN INH Shortness of Breath 04/07/20 12:00 07/06/20 11:59 Ascorbic Acid (Vitamin C) 500 mg TWICE A DAY ORAL 04/07/20 18:00 05/07/20 17:59 04/13/20 18:36 Dexamethasone Sodium Phosphate (Decadron 4mg/ml vial) 6 mg DAILY IVP 04/12/20 09:00 04/17/20 09:01 04/13/20 11:05 Docusate Sodium (Colace) 100 mg TWICE A DAY ORAL 04/07/20 18:00 05/07/20 17:59 04/13/20 18:36 Enoxaparin Sodium (Lovenox) 120 mg Q24H SUBQ 04/07/20 17:00 07/06/20 16:59 04/13/20 18:36 Pantoprazole (Protonix) 40 mg DAILY ORAL 04/08/20 09:00 05/08/20 08:59 04/13/20 11:05 Piperacillin Sod/ Tazobactam Sod 3.375 gm/Dextrose 110 ml @ 27.5 mls/hr EVERY 8 HOURS IVPB 04/11/20 22:00 04/16/20 21:59 04/14/20 07:00 Potassium Chloride/Sodium Chloride 1,000 ml @ 50 mls/hr Q20H IV 04/07/20 13:00 05/07/20 12:59 04/13/20 20:22 Potassium Chloride (K-Dur) 40 meq TID ORAL 04/08/20 09:45 07/07/20 09:44 04/13/20 18:36 Zinc Sulfate (Zinc Sulfate) 220 mg DAILY ORAL 04/07/20 12:15 07/06/20 12:14 04/13/20 11:05 Assessment/Plan Assessment/Plan ASSESSMENT Acute hypoxemic respiratory failure requiring nonrebreather mask COVID pneumonia Pneumomediastinum, - likely due to coughing, no PTX -resolved Morbid obesity Electrolyte imbalance: hypo Na, hypo K, hypo Mg Elevated LFT Elevated CK, possible rhabdo AZUCENA -resolved PLAN OF CARE tele O2 titrate to keep sat above 92% ; down to O2 via NC closely monitor oxygenation and resp status encourage patient to maintain a prone position as much as possible MDI Albuterol prn steroids [id number], remdesivir x 5 days ( completed 04/11) abx as per ID recs fup CXR 04/09 -> improvement in mild patchy diffuse bilateral pneumonia. Resolution of pneumomediastinum. CXR 04/12-> Interval worsening of bilateral multifocal pneumonia check CXR in am 04/15 fup inflammatory markers:initial: ferritin > 2000, CRP 36,8, D dimer 2.01, LDH 1495-, IL 6 pending - ferritin and CRP with small trend down, IL6 not sent, apparently not performing for send out any more at this facility a/c with Lovenox/prophylaxis dose vit C and zinc initial CXR ->Bilateral infiltrates, suspicious for bilateral pneumonia, quite possibly Evidence of soft tissue gas within the fascial planes of the neck as well as soft tissue gas within the left supraclavicular fossa CT chest-> Bilateral diffuse and extensive infiltrates, most likely due to pneumonia, Pneumomediastinum. No evidence of pneumothorax on fup CXR 04/[address] neck -> Extensive gas within the fascial planes of the neck, as described. Etiology not demonstrated. No evidence of fluid collection to suggest abscess Other findings included dental disease, bilateral maxillary sinus polyps versus mucous retention cysts however CXR 04/12 with worsening of bilateral multifocal pneumonia. off IVF nephro follows monitor renal parameters, LFT, CK trending down, AST and total bili down [id number] prediabetes., no concentrated sweets diet lipid panel stable supportive care RT to titrate O2 to keep sat > 92%, can't go home if hypoxic and O2 dependent slow improvement encourage ambulation in the room ( deconditioned and gets very tachycardic 130- 140 while ambulating in the room) spoke with nurse to check HR and O2 sat while ambualting int he room and document case discussed and evaluated by supervising physician Mariela Dover NP Apr 14, 2020 09:06 Eleuterio Shipley MD Apr 14, 2020 18:04
--- NOTE | 2020-04-14 11:59 | Nephrology Progress Note ---
Assessment/Plan Problem List: (1) AZUCENA (acute kidney injury) (2) Hypokalemia (3) Dehydration (4) Diarrhea (5) Obesity (6) Hypoxemic respiratory failure, chronic (7) COVID-19 Assessment Acute hypoxemic respiratory failure requiring cardioversion nonrebreather mask COVID pneumonia Morbid obesity Electrolyte imbalance: hypo Na, hypo K, hypo Mg Elevated LFT Elevated CK, possible rhabdo AZUCENA Plan April 14: Labs reviewed. Stable from renal standpoint of view. April 13: Labs reviewed. Medication list reviewed. Renal parameters and electrolytes stable. April 12: Labs reviewed reviewed. Remains stable from renal standpoint of view. Continue per consultants. April 11: Labs reviewed. Stable from renal standpoint of view. Continue per consultants. April 10: Labs reviewed. Electrolytes within normal range. Continue per consultants. Not much to add from renal standpoint of view. April 09: Labs reviewed. Stable from renal standpoint of view. Continue per PMD and consultants. April 08: Labs reviewed. Serum sodium improved. Low potassium replaced. Serum creatinine lowered. Meds reviewed. Receiving treatment for COVID-19. Continue to monitor renal parameters and electrolytes. Subjective ROS Limited/Unobtainable: No Objective Objective Last 24 Hour Vital Signs Date Time Temp Pulse Resp B/P (MAP) Pulse Ox O2 Delivery O2 Flow Rate FiO2 04/14/20 09:33 96 04/14/20 09:00 Non-Rebreather 4.0 04/14/20 08:00 97.3 97 19 118/66 (83) 97 04/14/20 04:00 97.1 88 22 100/55 (70) 97 04/14/20 00:00 96.8 99 20 105/63 (77) 97 04/14/20 00:00 67 04/13/20 21:00 Non-Rebreather 4.0 04/13/20 20:38 90 17 95 Nasal Cannula 4.0 36 04/13/20 20:36 95 Nasal Cannula 4.0 36 04/13/20 20:00 97.2 98 18 106/65 (79) 94 04/13/20 20:00 102 04/13/20 16:00 97.7 98 18 132/98 (109) 92 04/13/20 16:00 98 04/13/20 12:00 103 22 127/67 (87) 92 04/13/20 12:00 100 Intake and Output 04/13/20 04/14/20 19:00 07:00 Intake Total 1900 ml 1000 ml Output Total 1750 ml Balance 150 ml 1000 ml Intake Oral 1900 ml 1000 ml Output Urine Total 1750 ml # Voids 5 4 # Bowel Movements 2 1 Current Medications Medications (Trade) Dose Ordered Sig/Bernard Route PRN Reason Start Time Stop Time Status Last Admin Dose Admin Albuterol Sulfate (Proventil MDI) 2 puff Q4H PRN INH Shortness of Breath 04/07/20 12:00 07/06/20 11:59 Ascorbic Acid (Vitamin C) 500 mg TWICE A DAY ORAL 04/07/20 18:00 05/07/20 17:59 04/14/20 09:03 Dexamethasone Sodium Phosphate (Decadron 4mg/ml vial) 6 mg DAILY IVP 04/12/20 09:00 04/17/20 09:01 04/14/20 09:03 Docusate Sodium (Colace) 100 mg TWICE A DAY ORAL 04/07/20 18:00 05/07/20 17:59 04/14/20 09:03 Enoxaparin Sodium (Lovenox) 120 mg Q24H SUBQ 04/07/20 17:00 07/06/20 16:59 04/13/20 18:36 Pantoprazole (Protonix) 40 mg DAILY ORAL 04/08/20 09:00 05/08/20 08:59 04/14/20 09:03 Piperacillin Sod/ Tazobactam Sod 3.375 gm/Dextrose 110 ml @ 27.5 mls/hr EVERY 8 HOURS IVPB 04/11/20 22:00 04/16/20 21:59 04/14/20 07:00 Potassium Chloride/Sodium Chloride 1,000 ml @ 50 mls/hr Q20H IV 04/07/20 13:00 05/07/20 12:59 04/13/20 20:22 Potassium Chloride (K-Dur) 40 meq TID ORAL 04/08/20 09:45 07/07/20 09:44 04/14/20 09:03 Zinc Sulfate (Zinc Sulfate) 220 mg DAILY ORAL 04/07/20 12:15 07/06/20 12:14 04/14/20 09:03 Laboratory Tests 04/14/20 07:00: White Blood Count 11.8H, Red Blood Count 4.04L, Hemoglobin 12.4L, Hematocrit 34.9L, Mean Corpuscular Volume 87, Mean Corpuscular Hemoglobin 30.8, Mean Corpuscular Hemoglobin Concent 35.6, Red Cell Distribution Width 14.6, Platelet Count 554H, Mean Platelet Volume 5.7L, Neutrophils (%) (Auto) 78.2H, Lymphocytes (%) (Auto) 13.9L, Monocytes (%) (Auto) 7.0, Eosinophils (%) (Auto) 0.0, Basophils (%) (Auto) 0.9, Sodium Level 140, Potassium Level 4.6, Chloride Level 106, Carbon Dioxide Level 29, Anion Gap 5, Blood Urea Nitrogen 13, Creatinine 1.1, Estimat Glomerular Filtration Rate > 60, Glucose Level 133H, Calcium Level 8.5, Total Bilirubin 0.3, Aspartate Amino Transf (AST/SGOT) 30, Alanine Aminotransferase (ALT/SGPT) 70, Alkaline Phosphatase 68, Total Protein 5.7L, Albumin 2.3L, Globulin 3.4, Albumin/Globulin Ratio 0.7L Height (Feet): 5 Height (Inches): 8.00 Weight (Pounds): 374 General Appearance: no apparent distress Cardiovascular: tachycardia Respiratory/Chest: decreased breath sounds Abdomen: soft Objective No change Jamey Mar MD Apr 14, 2020 11:59
--- NOTE | 2020-04-14 14:39 | NUR ---
CASE MANAGEMENT:REVIEW 04/14/20 SI: COVID PNA 97.0 91 21 116/60 97% ON 4L/36% NRB WBC+11.8 H/H-12.4/34.9 IS: IV DECADRON QD LOVENOX SQ Q24 IV ZOSYN Q8HRS IVF+KCL@50/HR K-DUR PO TID : TELEMETRY STATUS DCP: FROM HOME PLAN: COMPLETED REMDESIVIR CONTINUE TO SLOWLY WEAN OXYGEN
--- NOTE | 2020-04-14 15:55 | Surgery Progress Note ---
Surgery Progress Note Subjective Symptoms: improved, tolerating diet, passing flatus, BM Objective Last 24 Hour Vital Signs Date Time Temp Pulse Resp B/P (MAP) Pulse Ox O2 Delivery O2 Flow Rate FiO2 04/14/20 12:00 96 04/14/20 12:00 97.0 91 21 116/60 (78) 97 04/14/20 09:33 96 04/14/20 09:00 Non-Rebreather 4.0 04/14/20 09:00 Nasal Cannula 4.0 04/14/20 08:00 97.3 97 19 118/66 (83) 97 04/14/20 04:00 97.1 88 22 100/55 (70) 97 04/14/20 00:00 96.8 99 20 105/63 (77) 97 04/14/20 00:00 67 04/13/20 21:00 Non-Rebreather 4.0 04/13/20 20:38 90 17 95 Nasal Cannula 4.0 36 04/13/20 20:36 95 Nasal Cannula 4.0 36 04/13/20 20:00 97.2 98 18 106/65 (79) 94 04/13/20 20:00 102 04/13/20 16:00 97.7 98 18 132/98 (109) 92 04/13/20 16:00 98 I&O Intake and Output 04/13/20 04/14/20 19:00 07:00 Intake Total 1900 ml 1000 ml Output Total 1750 ml Balance 150 ml 1000 ml Intake Oral 1900 ml 1000 ml Output Urine Total 1750 ml # Voids 5 4 # Bowel Movements 2 1 Dressing: other Wound: other Cardiovascular: RSR Respiratory: decreased breath sounds Abdomen: soft, non-tender, present bowel sounds, non-distended Extremities: no edema, no tenderness, no cyanosis Laboratory Tests Test 04/14/20 07:00 White Blood Count 11.8 K/UL (4.8-10.8) H Red Blood Count 4.04 M/UL (4.70-6.10) L Hemoglobin 12.4 G/DL (14.2-18.0) L Hematocrit 34.9 % (42.0-52.0) L Mean Corpuscular Volume 87 FL (80-99) Mean Corpuscular Hemoglobin 30.8 PG (27.0-31.0) Mean Corpuscular Hemoglobin Concent 35.6 G/DL (32.0-36.0) Red Cell Distribution Width 14.6 % (11.6-14.8) Platelet Count 554 K/UL (150-450) H Mean Platelet Volume 5.7 FL (6.5-10.1) L Neutrophils (%) (Auto) 78.2 % (45.0-75.0) H Lymphocytes (%) (Auto) 13.9 % (20.0-45.0) L Monocytes (%) (Auto) 7.0 % (1.0-10.0) Eosinophils (%) (Auto) 0.0 % (0.0-3.0) Basophils (%) (Auto) 0.9 % (0.0-2.0) Sodium Level 140 MMOL/L (136-145) Potassium Level 4.6 MMOL/L (3.5-5.1) Chloride Level 106 MMOL/L (98-107) Carbon Dioxide Level 29 MMOL/L (21-32) Anion Gap 5 mmol/L (5-15) Blood Urea Nitrogen 13 mg/dL (7-18) Creatinine 1.1 MG/DL (0.55-1.30) Estimat Glomerular Filtration Rate > 60 mL/min (>60) Glucose Level 133 MG/DL (74-106) H Calcium Level 8.5 MG/DL (8.5-10.1) Total Bilirubin 0.3 MG/DL (0.2-1.0) Aspartate Amino Transf (AST/SGOT) 30 U/L (15-37) Alanine Aminotransferase (ALT/SGPT) 70 U/L (12-78) Alkaline Phosphatase 68 U/L (46-116) Total Protein 5.7 G/DL (6.4-8.2) L Albumin 2.3 G/DL (3.4-5.0) L Globulin 3.4 g/dL Albumin/Globulin Ratio 0.7 (1.0-2.7) L Plan Problems: (1) Pneumomediastinum Assessment & Plan: 29M with covid, sob, noted to have extensive air neck, face, mediastinum. no trauma. no ptx etiology unknown. no abscess. afebrile, HD Stable, labs noted ?bleb tolerating diet no pain okay for diet will monitor clinically will cont work up etiology Lungs: There is been improvement in mild patchy diffuse bilateral pneumonia. Pleural space: Unremarkable. No pneumothorax. Heart: Unremarkable. No cardiomegaly. Mediastinum: There is been resolution of pneumomediastinum. Bones/joints: Unremarkable. IMPRESSION: 1. There is been improvement in mild patchy diffuse bilateral pneumonia. 2. There is been resolution of pneumomediastinum. Gas is seen within the deep fascial planes of the neck as well as superficially. Gas is seen in the retropharyngeal space extending from the level of the adenoids into the upper mediastinum, within the vascular space surrounding the carotid sheaths, within the right parapharyngeal space, surrounding the thyroid, in the lower neck anterior to the strap muscles and also adjacent and superficial to the left sternocleidomastoid. Some gas is also seen anterior to the upper medial pectoralis major muscle on the left and in the bilateral supraclavicular fossae. No focal fluid collection to suggest abscess demonstrated. No definite tracheal or esophageal wall defect is demonstrated. Gas also extends into the mediastinum and is described in more detail on separate chest CT report There are bilateral maxillary sinus polyps versus mucous retention cysts. There is evidence of dental disease with severe caries and periodontal changes involving the left second maxillary molar. No cervical mass or adenopathy demonstrated. The salivary glands are unremarkable. The visualized lungs demonstrate extensive pulmonary parenchymal disease. This is described on separate chest CT report. Impression: Extensive gas within the fascial planes of the neck, as described. Etiology not demonstrated. No evidence of fluid collection to suggest abscess Other findings as noted, including dental disease, bilateral maxillary sinus polyps versus mucous retention cysts (2) Dehydration (3) Hypokalemia (4) Diarrhea (5) Obesity (6) AZUCENA (acute kidney injury) (7) Hypoxemic respiratory failure, chronic (8) COVID-19 Leoncio Bryant Apr 14, 2020 15:55
[2020-04-14] MEDS: NS w/KCl 20mEq 1000ml 1,000 ML IV SCH (15:56)
[2020-04-14] MEDS: Enoxaparin 120 mg inj SUBQ SCH (17:25)
--- NOTE | 2020-04-14 19:10 | NUR ---
NURSE HAND-OFF REPORT: Important Events on Shift:N/A Patient Status: Stable Diet: Cardiac Pending Orders: N/A Pending Results/Labs:Morning labs Pending MD notification:N/A Latest Vital Signs: Temperature 97.3 , Pulse 96 , B/P 122 /79 , Respiratory Rate 20 , O2 SAT 92 , Nasal Cannula, O2 Flow Rate 4.0 . Vital Sign Comment: Stable EKG Rhythm: Sinus Rhythm Rhythm change?: N MD Notified?: N - MD Response: Latest [place] Fall Score: 20 Fall Risk: Low Risk Safety Measures: Call light Within Reach, Bed Alarm Zone 2, Side Rails Side Rails x2, Bed position Low and Locked. Fall Precautions: Patient Fall Education Report given to Ortiz/WILLIAM.
--- NOTE | 2020-04-14 19:39 | NUR ---
NURSE NOTES: Patient received from Yuliya RN. Alert and oriented x4. Seen comfortable in bed. No c/o pain and no s/s of distress. Saturating well on 4L of oxygen via nasal cannula. IV site patent and intact on Left hand 20G running NS c 20meq kcl @ 50cc/hr. Patient able to ambulate by himself. Bed in lowest position and locked. Call light and bedside within reach. Will continue plan of care.
[2020-04-15 04:00] VITALS: BP 113/71
[2020-04-15] MEDS: Piperacillin/Tazobactam 3.375 GM in D5W 110 ML IVPB SCH ×2 (05:58→14:00)
--- NOTE | 2020-04-15 07:04 | NUR ---
NURSE HAND-OFF REPORT: Important Events on Shift:[Tolerating Room air on and off o2 @ 2L] Patient Status: [Stable, FC] Diet: [Cardiac Diet] Pending Orders: [] Pending Results/Labs:[] Pending MD notification:[] Latest Vital Signs: Temperature 98.1 , Pulse 96 , B/P 113 /71 , Respiratory Rate 20 , O2 SAT 95 , Nasal Cannula, O2 Flow Rate 4.0 . Vital Sign Comment: [] EKG Rhythm: Sinus Rhythm Rhythm change?: N MD Notified?: N - MD Response: Latest [place] Fall Score: 20 Fall Risk: Low Risk Safety Measures: Call light Within Reach, Bed Alarm Zone 2, Side Rails Side Rails x2, Bed position Low and Locked. Fall Precautions: Patient Fall Education Report given to []. Addendum: 04/15/20 at 0738 by Gerardo Olvera RN Report given to Krys THOMAS
[2020-04-15 07:29] LABS: BASOPHILS % (AUTO) 0.8 % (0.0-2.0); HEMATOCRIT 35.1 % (42.0-52.0); HEMOGLOBIN 12.5 G/DL (14.2-18.0); LYMPHOCYTES % (AUTO) 17.3 % (20.0-45.0); MEAN CORPUSCULAR VOLUME 86 FL (80-99); MONOCYTES % (AUTO) 8.6 % (1.0-10.0); NEUTROPHILS % (AUTO) 73.3 % (45.0-75.0); PLATELET COUNT 546 K/UL (150-450); RED BLOOD COUNT 4.06 M/UL (4.70-6.10); RED CELL DISTRIBUTION WIDTH 15.2 % (11.6-14.8); WHITE BLOOD COUNT 12.1 K/UL (4.8-10.8)
[2020-04-15 08:00] VITALS: BP 123/49
[2020-04-15] MEDS: Zinc Sulfate 220mg ORAL SCH (08:11)
[2020-04-15] MEDS: Ascorbic Acid 500mg tab ORAL SCH (08:11)
[2020-04-15] MEDS: Docusate 100mg cap ORAL SCH (08:11)
--- NOTE | 2020-04-15 09:32 | NUR ---
NURSE NOTES: Patient received from Gerardo THOMAS. Pt is awake and AOx4, pt is on NC @ 2L with no sign of sob or resp distress. IV site to left wrist patent and intact running NS with 20meq kcl @ 50cc/hr. Patient able to ambulate by himself. Bed in lowest position and locked. Call light and bedside within reach. Will continue plan of care.
--- NOTE | 2020-04-15 10:15 | Pulmonology Progress Note ---
Subjective ROS Limited/Unobtainable: No Constitutional: Reports: fatigue; Denies: fever Gastrointestinal/Abdominal: Denies: nausea, vomiting, diarrhea Psychiatric: Denies: depression Skin: Denies: rash Musculoskeletal: Denies: pain Allergies: Coded Allergies: No Known Allergies (Unverified , 03/06/19) Subjective now down to 2 L O2 via NC intermittently removes O2 , no resp distress no fevers + fatigue weaned to O2 via NC denies chest pain mild leuk, likely due to steroids CRP down to 1.7 Objective Last 24 Hour Vital Signs Date Time Temp Pulse Resp B/P (MAP) Pulse Ox O2 Delivery O2 Flow Rate FiO2 04/15/20 09:00 Nasal Cannula 2.0 04/15/20 08:05 86 17 96 Nasal Cannula 4.0 36 04/15/20 08:05 96 Nasal Cannula 4.0 36 04/15/20 08:00 89 04/15/20 08:00 98.5 60 22 123/49 (73) 99 04/15/20 04:00 98.1 96 20 113/71 (85) 95 04/15/20 04:00 84 04/15/20 00:00 90 04/14/20 23:38 98.8 96 21 118/65 (82) 95 04/14/20 21:00 Nasal Cannula 4.0 04/14/20 20:00 89 04/14/20 20:00 98.2 96 20 113/65 (81) 94 04/14/20 19:34 96 Nasal Cannula 4.0 36 04/14/20 19:33 86 17 96 Nasal Cannula 4.0 36 04/14/20 16:00 97.3 109 20 122/79 (93) 92 04/14/20 16:00 96 04/14/20 12:00 96 04/14/20 12:00 97.0 91 21 116/60 (78) 97 Intake and Output 04/14/20 04/15/20 19:00 07:00 Intake Total 1000 ml Output Total 1600 ml 800 ml Balance -600 ml -800 ml Intake Oral 1000 ml Output Urine Total 1600 ml 800 ml # Voids 3 # Bowel Movements 2 1 Objective General Appearance: young obese male on O2 via NC , in NAD Lines, tubes and drains: peripheral HEENT: normocephalic, atraumatic, anicteric, PERRL Neck: non-tender, supple Respiratory/Chest: no accessory muscle use, few isolated rhonchi BL Cardiovascular/Chest: normal rate, regular rhythm Abdomen: normal bowel sounds, non tender, soft, obese Extremities: normal range of motion, non-tender, no calf tenderness, normal capillary refill Skin Exam: warm/dry Neurologic: library page II-XII grossly normal, no motor/sensory deficits, alert, oriented x 3, responsive Musculoskeletal: normal muscle bulk Laboratory Tests 04/15/20 05:58: White Blood Count 12.1H, Red Blood Count 4.06L, Hemoglobin 12.5L, Hematocrit 35.1L, Mean Corpuscular Volume 86, Mean Corpuscular Hemoglobin 30.6, Mean Corpuscular Hemoglobin Concent 35.4, Red Cell Distribution Width 15.2H, Platelet Count 546H, Mean Platelet Volume 5.9L, Neutrophils (%) (Auto) 73.3, Lymphocytes (%) (Auto) 17.3L, Monocytes (%) (Auto) 8.6, Eosinophils (%) (Auto) 0.0, Basophils (%) (Auto) 0.8, D-Dimer 1.80H, Ferritin 817H, C-Reactive Protein, Quantitative 1.7H Current Medications Medications (Trade) Dose Ordered Sig/Bernard Route PRN Reason Start Time Stop Time Status Last Admin Dose Admin Albuterol Sulfate (Proventil MDI) 2 puff Q4H PRN INH Shortness of Breath 04/07/20 12:00 07/06/20 11:59 Ascorbic Acid (Vitamin C) 500 mg TWICE A DAY ORAL 04/07/20 18:00 05/07/20 17:59 04/15/20 08:11 Dexamethasone Sodium Phosphate (Decadron 4mg/ml vial) 6 mg DAILY IVP 04/12/20 09:00 04/17/20 09:01 04/15/20 08:11 Docusate Sodium (Colace) 100 mg TWICE A DAY ORAL 04/07/20 18:00 05/07/20 17:59 04/15/20 08:11 Enoxaparin Sodium (Lovenox) 120 mg Q24H SUBQ 04/07/20 17:00 07/06/20 16:59 04/14/20 17:25 Pantoprazole (Protonix) 40 mg DAILY ORAL 04/08/20 09:00 05/08/20 08:59 04/15/20 08:11 Piperacillin Sod/ Tazobactam Sod 3.375 gm/Dextrose 110 ml @ 27.5 mls/hr EVERY 8 HOURS IVPB 04/11/20 22:00 04/16/20 21:59 04/15/20 05:58 Potassium Chloride/Sodium Chloride 1,000 ml @ 50 mls/hr Q20H IV 04/07/20 13:00 05/07/20 12:59 04/14/20 15:56 Potassium Chloride (K-Dur) 40 meq TID ORAL 04/08/20 09:45 07/07/20 09:44 04/14/20 17:24 Zinc Sulfate (Zinc Sulfate) 220 mg DAILY ORAL 04/07/20 12:15 07/06/20 12:14 04/15/20 08:11 Assessment/Plan Assessment/Plan ASSESSMENT Acute hypoxemic respiratory failure requiring nonrebreather mask COVID pneumonia Pneumomediastinum, - likely due to coughing, no PTX -resolved Morbid obesity Electrolyte imbalance: hypo Na, hypo K, hypo Mg Elevated LFT Elevated CK, possible rhabdo AZUCENA -resolved PLAN OF CARE tele O2 titrate to keep sat above 92% ; down to O2 via NC closely monitor oxygenation and resp status encourage patient to maintain a prone position as much as possible MDI Albuterol prn steroids [id number], remdesivir x 5 days ( completed 04/11) abx as per ID recs ( Zosyn completing 04/16) fup CXR 04/09 -> improvement in mild patchy diffuse bilateral pneumonia. Resolution of pneumomediastinum. CXR 04/12-> Interval worsening of bilateral multifocal pneumonia CXR for this am 04/15 done, imaging not uploaded yet fup inflammatory markers:initial: ferritin > 2000, CRP 36,8, D dimer 2.01, LDH 1495-, IL 6 pending - ferritin and CRP with small trend down, IL6 not sent, apparently not performing for send out any more at this facility CRP down to 1.7 a/c with Lovenox/prophylaxis dose vit C and zinc initial CXR ->Bilateral infiltrates, suspicious for bilateral pneumonia, quite possibly Evidence of soft tissue gas within the fascial planes of the neck as well as soft tissue gas within the left supraclavicular fossa CT chest-> Bilateral diffuse and extensive infiltrates, most likely due to pneumonia, Pneumomediastinum. No evidence of pneumothorax on fup CXR 04/[address] neck -> Extensive gas within the fascial planes of the neck, as described. Etiology not demonstrated. No evidence of fluid collection to suggest abscess Other findings included dental disease, bilateral maxillary sinus polyps versus mucous retention cysts however CXR 04/12 with worsening of bilateral multifocal pneumonia. off IVF nephro follows monitor renal parameters, LFT, CK trending down, AST and total bili down [id number] prediabetes., no concentrated sweets diet lipid panel stable supportive care RT to titrate O2 to keep sat > 92%, can't go home if hypoxic and O2 dependent slow improvement encourage ambulation in the room spoke with nurse to check O2 sat while off O2 x 30 min dc plan 1200 ADDENDUM: pulse ox 95 % on RA discussed with ID -> Augmentin for 3 days, script provided SW consult to give list of free clinics to fup educated on return to ED precautions dc later case discussed and evaluated by supervising physician Mariela Dover NP Apr 15, 2020 10:15 Eleuterio Shipley MD Apr 15, 2020 17:59
--- NOTE | 2020-04-15 11:04 | Nephrology Progress Note ---
Assessment/Plan Problem List: (1) AZUCENA (acute kidney injury) (2) Hypokalemia (3) Dehydration (4) Diarrhea (5) Obesity (6) Hypoxemic respiratory failure, chronic (7) COVID-19 Assessment Acute hypoxemic respiratory failure requiring cardioversion nonrebreather mask COVID pneumonia Morbid obesity Electrolyte imbalance: hypo Na, hypo K, hypo Mg Elevated LFT Elevated CK, possible rhabdo AZUCENA Plan April 15: Remains stable from renal standpoint of view. Labs reviewed April 14: Labs reviewed. Stable from renal standpoint of view. April 13: Labs reviewed. Medication list reviewed. Renal parameters and electrolytes stable. April 12: Labs reviewed reviewed. Remains stable from renal standpoint of view. Continue per consultants. April 11: Labs reviewed. Stable from renal standpoint of view. Continue per consultants. April 10: Labs reviewed. Electrolytes within normal range. Continue per consultants. Not much to add from renal standpoint of view. April 09: Labs reviewed. Stable from renal standpoint of view. Continue per PMD and consultants. April 08: Labs reviewed. Serum sodium improved. Low potassium replaced. Serum creatinine lowered. Meds reviewed. Receiving treatment for COVID-19. Continue to monitor renal parameters and electrolytes. Subjective ROS Limited/Unobtainable: No Objective Objective Last 24 Hour Vital Signs Date Time Temp Pulse Resp B/P (MAP) Pulse Ox O2 Delivery O2 Flow Rate FiO2 04/15/20 09:00 Nasal Cannula 2.0 04/15/20 08:05 86 17 96 Nasal Cannula 4.0 36 04/15/20 08:05 96 Nasal Cannula 4.0 36 04/15/20 08:00 89 04/15/20 08:00 98.5 60 22 123/49 (73) 99 04/15/20 04:00 98.1 96 20 113/71 (85) 95 04/15/20 04:00 84 04/15/20 00:00 90 04/14/20 23:38 98.8 96 21 118/65 (82) 95 04/14/20 21:00 Nasal Cannula 4.0 04/14/20 20:00 89 04/14/20 20:00 98.2 96 20 113/65 (81) 94 04/14/20 19:34 96 Nasal Cannula 4.0 36 04/14/20 19:33 86 17 96 Nasal Cannula 4.0 36 04/14/20 16:00 97.3 109 20 122/79 (93) 92 04/14/20 16:00 96 04/14/20 12:00 96 04/14/20 12:00 97.0 91 21 116/60 (78) 97 Intake and Output 04/14/20 04/15/20 19:00 07:00 Intake Total 1000 ml Output Total 1600 ml 800 ml Balance -600 ml -800 ml Intake Oral 1000 ml Output Urine Total 1600 ml 800 ml # Voids 3 # Bowel Movements 2 1 Laboratory Tests 04/15/20 05:58: White Blood Count 12.1H, Red Blood Count 4.06L, Hemoglobin 12.5L, Hematocrit 35.1L, Mean Corpuscular Volume 86, Mean Corpuscular Hemoglobin 30.6, Mean Corpuscular Hemoglobin Concent 35.4, Red Cell Distribution Width 15.2H, Platelet Count 546H, Mean Platelet Volume 5.9L, Neutrophils (%) (Auto) 73.3, Lymphocytes (%) (Auto) 17.3L, Monocytes (%) (Auto) 8.6, Eosinophils (%) (Auto) 0.0, Basophils (%) (Auto) 0.8, D-Dimer 1.80H, Ferritin 817H, C-Reactive Protein, Quantitative 1.7H Height (Feet): 5 Height (Inches): 8.00 Weight (Pounds): 374 General Appearance: no apparent distress Objective No change Jamey Mar MD Apr 15, 2020 11:04
[2020-04-15] MEDS: NS w/KCl 20mEq 1000ml 1,000 ML IV SCH (11:32)
[2020-04-15 12:00] VITALS: BP 108/69
[2020-04-15] MEDS ORDERED: AUGMENTIN 875-1 EAC1 ORAL (12:41)
--- NOTE | 2020-04-15 13:30 | NUR ---
STEAM DRIER TENDER NOTE This SW spoke w/ pt over the phone, explaining that he will be provided w/ the list of the formerly [facility] clinics and pharmacy services in the envelope. PT verbalized that he resides w/ his mother and he does have his own room to quarantine. SW confirmed w/ ip financial counselor that pt's [employer] application has been submitted.
--- NOTE | 2020-04-15 15:21 | Diagnostic Imaging Report ---
Indication: Shortness of breath Technique: One view of the chest Comparison: 04/13/2020 Findings: Bilateral infiltrates are unchanged. The heart size is normal Impression: Unchanged, over 2 days, findings as above.
--- NOTE | 2020-04-15 15:38 | Surgery Progress Note ---
Surgery Progress Note Subjective Symptoms: improved, tolerating diet, voiding well, passing flatus, BM Objective Last 24 Hour Vital Signs Date Time Temp Pulse Resp B/P (MAP) Pulse Ox O2 Delivery O2 Flow Rate FiO2 04/15/20 12:00 97.7 101 20 108/69 (82) 95 04/15/20 12:00 98 04/15/20 09:00 Nasal Cannula 2.0 04/15/20 08:05 86 17 96 Nasal Cannula 4.0 36 04/15/20 08:05 96 Nasal Cannula 4.0 36 04/15/20 08:00 89 04/15/20 08:00 98.5 60 22 123/49 (73) 99 04/15/20 04:00 98.1 96 20 113/71 (85) 95 04/15/20 04:00 84 04/15/20 00:00 90 04/14/20 23:38 98.8 96 21 118/65 (82) 95 04/14/20 21:00 Nasal Cannula 4.0 04/14/20 20:00 89 04/14/20 20:00 98.2 96 20 113/65 (81) 94 04/14/20 19:34 96 Nasal Cannula 4.0 36 04/14/20 19:33 86 17 96 Nasal Cannula 4.0 36 04/14/20 16:00 97.3 109 20 122/79 (93) 92 04/14/20 16:00 96 I&O Intake and Output 04/14/20 04/15/20 19:00 07:00 Intake Total 1000 ml Output Total 1600 ml 800 ml Balance -600 ml -800 ml Intake Oral 1000 ml Output Urine Total 1600 ml 800 ml # Voids 3 # Bowel Movements 2 1 Cardiovascular: RSR Respiratory: clear Abdomen: soft, non-tender, present bowel sounds Extremities: no edema, no tenderness, no cyanosis Laboratory Tests Test 04/15/20 05:58 White Blood Count 12.1 K/UL (4.8-10.8) H Red Blood Count 4.06 M/UL (4.70-6.10) L Hemoglobin 12.5 G/DL (14.2-18.0) L Hematocrit 35.1 % (42.0-52.0) L Mean Corpuscular Volume 86 FL (80-99) Mean Corpuscular Hemoglobin 30.6 PG (27.0-31.0) Mean Corpuscular Hemoglobin Concent 35.4 G/DL (32.0-36.0) Red Cell Distribution Width 15.2 % (11.6-14.8) H Platelet Count 546 K/UL (150-450) H Mean Platelet Volume 5.9 FL (6.5-10.1) L Neutrophils (%) (Auto) 73.3 % (45.0-75.0) Lymphocytes (%) (Auto) 17.3 % (20.0-45.0) L Monocytes (%) (Auto) 8.6 % (1.0-10.0) Eosinophils (%) (Auto) 0.0 % (0.0-3.0) Basophils (%) (Auto) 0.8 % (0.0-2.0) D-Dimer 1.80 mg/L FEU (0.00-0.49) H Ferritin 817 NG/ML (8-388) H C-Reactive Protein, Quantitative 1.7 mg/dL (0.00-0.90) H Plan Problems: (1) Pneumomediastinum Assessment & Plan: 29M with covid, sob, noted to have extensive air neck, face, mediastinum. no trauma. no ptx etiology unknown. no abscess. afebrile, HD Stable, labs noted ?bleb tolerating diet no pain okay for diet will monitor clinically will cont work up etiology resolved improved breating well eating well ambulatory less sob d/c home Lungs: There is been improvement in mild patchy diffuse bilateral pneumonia. Pleural space: Unremarkable. No pneumothorax. Heart: Unremarkable. No cardiomegaly. Mediastinum: There is been resolution of pneumomediastinum. Bones/joints: Unremarkable. IMPRESSION: 1. There is been improvement in mild patchy diffuse bilateral pneumonia. 2. There is been resolution of pneumomediastinum. Gas is seen within the deep fascial planes of the neck as well as superficially. Gas is seen in the retropharyngeal space extending from the level of the adenoids into the upper mediastinum, within the vascular space surrounding the carotid sheaths, within the right parapharyngeal space, surrounding the thyroid, in the lower neck anterior to the strap muscles and also adjacent and superficial to the left sternocleidomastoid. Some gas is also seen anterior to the upper medial pectoralis major muscle on the left and in the bilateral supraclavicular fossae. No focal fluid collection to suggest abscess demonstrated. No definite tracheal or esophageal wall defect is demonstrated. Gas also extends into the mediastinum and is described in more detail on separate chest CT report There are bilateral maxillary sinus polyps versus mucous retention cysts. There is evidence of dental disease with severe caries and periodontal changes involving the left second maxillary molar. No cervical mass or adenopathy demonstrated. The salivary glands are unremarkable. The visualized lungs demonstrate extensive pulmonary parenchymal disease. This is described on separate chest CT report. Impression: Extensive gas within the fascial planes of the neck, as described. Etiology not demonstrated. No evidence of fluid collection to suggest abscess Other findings as noted, including dental disease, bilateral maxillary sinus polyps versus mucous retention cysts (2) Dehydration (3) Hypokalemia (4) Diarrhea (5) Obesity (6) AZUCENA (acute kidney injury) (7) Hypoxemic respiratory failure, chronic (8) COVID-19 Leoncio Bryant Apr 15, 2020 15:38
--- NOTE | 2020-04-16 12:26 | Discharge Summary ---
Discharge Summary Discharge Summary _ DATE OF ADMISSION: 04/07/2020 DATE OF DISCHARGE: 04/15/2020 DISCHARGED BY: Dr. Shipley REASON FOR ADMISSION: 29 years old male with no significant past medical history presented to emergency department by paramedics due to respiratory distress. According to patient, his mother got diagnosed with COVID 19 first and currently hospitalized in [facility]. Patient started to have symptoms 2 days ago , which were getting progressively worse. He was tested positive outside of the hospital. Patient had difficulty breathing and called paramedics. Upon evaluation patient was tachycardic with heart rate 115, no fevers, blood pressure 144/91. Patient was hypoxic and required nonrebreather mask. Laboratory work-up revealed mild leukocytosis WBC 11.3 , hemoglobin 13.8 , hematocrit 30.7 , neutrophils 84 . ABG on 100% nonrebreather mask stable. Sodium 121, potassium 2.3. BUN 15, creatinine 1.4. Glucose 111. Lactic acid 2.2. Calcium 7.3 , phosphorus 2.0 , magnesium 1.3 . Total bili 1.6 , direct bilirubin 0.8 . AST 172, ALT 70. Total CK 9910 , CK-MB 17.3, troponin negative, proBNP 22. Albumin 2.5 Urinalysis revealed +2 protein ,+1 ketones ,no evidence of UTI. Influenza screen test was negative. Chest x-ray results pending Rapid COVID-19 was positive In emergency department patient received empiric antibiotic , steroids and admitted to telemetry floor for further management . Patient started on K and Mg replacement . CONSULTANTS: ID specialist roll scale man Dr. Mar [facility] Dr. Bryant [facility] COURSE: Patient admitted to telemetry floor isolation room. Supplemental oxygen provided and titrated to keep saturation above 92%. Patient initially was on nonrebreather mask for couple of days. MDI albuterol provided as needed. Respiratory status and oxygenation were closely monitored. Patient undergone treatment with 9 days of steroids and 5 days of remdesivir. Patient was followed -up with inflammatory markers. Anticoagulation with Lovenox as prophylaxis dose provided. Antibiotic provided as per ID recommendation. Prone position was encourage as much as tolerated. Vitamin C and zinc initiated. Initial chest x-ray revealed bilateral infiltrates, suspicious for bilateral pneumonia ; evidence of soft tissue gas within the fascial planes of the neck as well as the soft tissue gas within the left supraclavicular fossa. CT of the chest showed bilateral diffuse and extensive infiltrate , most likely due to pneumonia. Pneumomediastinum. No evidence of pneumothorax. CT of the neck revealed extensive gas within the fascial planes of the neck as described. Etiology not demonstrated. No evidence of fluid collection to suggest abscess. Other findings included dental disease ,bilateral maxillary sinus polyp versus mucous retention cyst. Follow-up chest x-ray on 04/09 revealed improvement in mild patchy diffuse bilateral pneumonia and resolution of pneumomediastinum. Influenza screen was negative. Blood cultures were negative. Urine culture was negative. Patient demonstrated mild leukocytosis , most likely due to steroids. Initial episode of fevers resolved. As patient clinically improved he was able to be weaned to Venturi mask. Renal parameters and electrolytes were closely monitored. Patient received IV hydration. Outpatient Therapist followed. AST and total bilirubin trended down along with CK. Electrolytes, including magnesium ,potassium ,and phosphorus were all replaced . Acute kidney injury resolved; prior to discharge BUN 13, creatinine 1.1 , and all electrolytes stable. Hemoglobin A1c 6.3. Patient was informed that he was a prediabetic and recommended no concentrated sweet diet as well as lose weight. Lipid panel was stable. Patient was followed-up with chest x-ray and inflammatory markers. Unfortunately patient demonstrated slow improvement in ambulation : was very tachycardic and short of breath while walking to the bathroom. Subsequently however he was able to be weaned to oxygen 2 L via nasal cannula . Oxygen was removed and pulse oximetry was checked after 30 minutes it was 95% on room air. Patient was ambulated in the room with no shortness of breath or tachycardia. clothing worker consult requested to give patient a list of [facility] clinics and pharmacy services. Return to ED precautions provided. Prescription for Augmentin for 3 additional 3 days to complete the course provided. Patient clinically stabilized and was ready for discharge FINAL DIAGNOSES: Acute hypoxemic respiratory failure requiring nonrebreather mask Covid 19 pneumonia Pneumomediastinum , likely due to coughing - resolved Morbid obesity with BMI 56.9 Electrolyte imbalance -resolved Elevated LFT-resolved Elevated CK possible rhabdo -resolved AZUCENA -resolved DISCHARGE MEDICATIONS: See Medication Reconciliation list. DISCHARGE INSTRUCTIONS: Patient was discharged home. List of [facility] clinics and pharmacy services provided for follow-up. Mariela Dover NP Apr 16, 2020 12:26
== END 2020-04-15 14:55 | disposition home or self-care (01) | DRG 177 ==
LOC: EDBD 09:08 → EMR 09:30 → 2E 10:10 → EDBEDREQ 10:44 → 2E 04-08 14:31
DX: U07.1 COVID-19 (principal); J12.89 Other viral pneumonia; J96.01 Acute respiratory failure with hypoxia; Z68.43 Body mass index [BMI] 50.0-59.9, adult; N17.9 Acute kidney failure, unspecified; E87.1 Hypo-osmolality and hyponatremia; M62.82 Rhabdomyolysis; J98.2 Interstitial emphysema; E66.01 Morbid (severe) obesity due to excess calories; R79.89 Other specified abnormal findings of blood chemistry; E87.6 Hypokalemia; E83.42 Hypomagnesemia; E86.0 Dehydration; R19.7 Diarrhea, unspecified; R73.03 Prediabetes
CPT/HCPCS: 36415; 70491; 71045; 71260; 80048; 80053; 80061; 81003; 82140; 82248; 82550; 82553; 82607; 82728; 82746; 82803; 82962; 82977; 83036; 83520; 83605; 83615; 83690; 83735; 83880; 83930; 84100; 84443; 84484; 84550; 85007; 85025; 85379; 85610; 85730; 86140; 86703; 86710; 87040; 87086; 93005; 94664; 96365; 96367; 96375; 99291; J3490; J7030; J8499